=== PATIENT | male | born 1985 | race Caucasian/White ===

== ENCOUNTER 2018-09-27 15:47 | Emergency (ER) | payer BC, SELFPAY ==
[2018-09-27 15:48] VITALS: BP 155/88; PULSE 113; RESP 16; TEMP 38.3; O2SAT 95; BMI 30.8
--- NOTE | 2018-09-27 16:06 | RAD_ITS ---
STUDY: X-RAY CHEST REASON FOR EXAM: Male, 33 years old. Increasing mid back pain. History of vertebral trauma. Wheelchair bound diaphragmatic. TECHNIQUE: PA and lateral views of the chest. COMPARISON: None. FINDINGS: The lungs are clear and expanded. There is no demonstrated pleural abnormality. Normal size heart. Normal mediastinum and josefina. Normal visualized pulmonary arteries. Normal visualized aortic arch and descending thoracic aorta. There is evidence of surgical fusion of T12 and the upper lumbar spine. There is no visualized thoracic spine fracture. Normal visualized ribs, clavicles, and shoulders. There is no demonstrated abnormality of the visualized soft tissue structures of the upper abdomen. RAD/Chest PA and Lateral IMPRESSION: 1. No acute cardiopulmonary disease. 2. Thoracolumbar fusion. There is no evidence of acute thoracic spine fracture. Electronically Signed: Charles Espitia DO at 17:08 EDT Tel [phone], Service support ,
--- NOTE | 2018-09-27 16:11 | RAD_ITS ---
STUDY: X-RAY - LEFT ANKLE REASON FOR EXAM: Male, 33 years old. Infection. Wheelchair-bound diabetic. TECHNIQUE: 3 view(s) of the ankle. COMPARISON: None. FINDINGS: There is mild generalized osteopenia. Normal visualized distal tibia and fibula. Normal medial and lateral malleoli. Normal tibiotalar articulation and ankle mortise. Normal visualized talus and calcaneus. The visualized subtalar, talonavicular, calcaneocuboid and tarsal articulations are normal. The soft tissue structures are unremarkable. RAD/Ankle min 3 Views IMPRESSION: Mild osteopenia. There is no evidence of fracture, dislocation or osteomyelitis. Electronically Signed: Charles Espitia DO at 17:06 EDT Tel [phone], Service support ,
[2018-09-27] MEDS: Acetaminophen 500 MG Tablet 1000 MG PO (16:34)
--- NOTE | 2018-09-27 16:39 | ED.VIS.GEN ---
History of Present Illness Chief Complaint: Cellulitis Informant: Patient Onset: Days - 5 Context: Gradual Onset Timing: Continuous Quality: redness around wounds Location: bilat ankles Current Severity: Mild Maximum Severity: Mild Worsened by: nothing Relieved by: nothing Associated Symptoms: fever today Narrative: Patient is a poorly controlled diabetic and paraplegic due to a remote L1 burst fracture that he sustained due to an axial loading injury. He has fairly good sensation down to the knees. He was wearing some boots recently that probably rubbed on his malleoli of his ankles, causing some open wounds. He was seen at an urgent care and started on clindamycin 5 days ago for these wounds. He states they have become somewhat red around them, but not significantly worsening recently, although he reports that he has not been following the redness very well because it is hard for him to see on the lateral aspect of his left ankle. Today he started feeling malaise and developed fevers up to 100.4. He also states today his urine is foul-smelling. No dysuria. His low back hurts and that is new. It is off and on. No abdominal discomfort, nausea, vomiting. He does have a cough but no production or dyspnea. - Past Medical History (1) Diabetes Status: Chronic (2) Post-traumatic paraplegia Status: Chronic Past Medical History - Allergies and Home Meds Allergies/Adverse Reactions: Allergies venom-honey bee [bee venom (honey bee)] Allergy (Verified 09/27/18 16:08) Unknown Primary Care Physician: Charlie Pacheco MD [Primary Care Provider] - Surgical History: - - Back Smoking Status: Never smoker Drugs: None Review of Systems General: Reports: Chills, Fever, Malaise Eyes: Denies: Visual changes - bilaterally, Diplopia ENT: Denies: Rhinorrhea, Sore throat Cardiovascular: Denies: Chest pain, Palpitations Respiratory: Reports: Cough. Denies: Dyspnea, Sputum Gastrointestinal: Denies: Abdominal pain, Nausea, Vomiting, Diarrhea, Melena, Hematochezia Genitourinary: Reports: - - Foul-smelling urine. Denies: Dysuria, Hematuria, Frequency Musculoskeletal: Reports: Back pain, Swelling - Left foot/ankle. Denies: Extremity Pain Skin: Reports: Rash, Wounds Neurological: Reports: Weakness - Chronic unchanged lower extremities, Numbness - Chronic unchanged lower extremities. Denies: Headache Physical Exam Vital Signs/Narrative: Vital Signs Temp Pulse Resp BP Pulse Ox 09/27/18 15:48 100.9 F H 113 H 16 155/88 H 95 Inital Vital Signs reviewed: Yes General: Well nourished, Well developed, No Acute Distress Head: Normocephalic, Atraumatic Eyes: Perrl, EOMI ENT: Moist mucous membranes, No rhinorrhea Neck: Supple, Nontender, No lymphadenopathy Cardiovascular: Regular rate, Regular rhythm, No murmurs, Normal S1, Normal S2, Tachycardia Respiratory: No distress, CTA bilaterally, Chest nontender Abdomen: Soft, Nontender, Nondistended, Normal bowel sounds Back: Nontender, Normal Inspection, - - Well-healed surgical scar mid back. Negative for: CVA tenderness Extremities: Edema - Left foot and ankle, around inflamed wounds. Negative for: Calf Tenderness Skin: Normal color, No Trauma, - - Scabbed healing ulcerative wounds at both left malleoli with surrounding erythema and blanching. No lymphangitis. Nontender because patient is insensate in this area although he can feel pressure. No abscess. There is also a small healing more superficial ulcerative wound at the medial malleolus on the right with no surrounding erythema. Neurological: Alert, Oriented x3, Cranial nerves II-XII grossly intact, Normal Strength, Normal Sensation Psychological: Normal affect, Normal Mood Diagnostic/Tx/Re-eval Impressions Chest X-Ray 09/27/18 16:06 IMPRESSION: 1. No acute cardiopulmonary disease. 2. Thoracolumbar fusion. There is no evidence of acute thoracic spine fracture. Electronically Signed: Charles Espitia DO at 17:08 EDT Tel [phone], Service support , Ankle X-Ray 09/27/18 16:11 IMPRESSION: Mild osteopenia. There is no evidence of fracture, dislocation or osteomyelitis. Electronically Signed: Charles Espitia DO at 17:06 EDT Tel [phone], Service support , 09/27/18 16:06 Chest PA and Lateral [RAD] Stat 09/27/18 16:11 XRAY Ankle [Ankle min 3 Views] [RAD] Stat Laboratory Results 09/27/18 09/27/18 09/27/18 16:20 16:20 16:20 WBC 23.1 H RBC 5.34 Hgb 15.5 Hct 44.2 MCV 82.8 MCH 29.0 MCHC 35.1 RDW 13.6 RDW Differential 41.1 Plt Count 277 MPV 10.1 Immature Gran % (Auto) 0.200 Neut % (Auto) 82.0 H Lymph % (Auto) 9.2 L Rutherford % (Auto) 8.1 Eos % (Auto) 0.3 Baso % (Auto) 0.2 Absolute Neuts (auto) 18.9 H Absolute Lymphs (auto) 2.12 Total Counted Not Reportable Diff Path Review May foll Platelet Estimate ADEQUATE RBC Morphology NORM C+C PT 13.9 INR 1.1 APTT 32.7 Sodium 136 Potassium 4.2 Chloride 99 Carbon Dioxide 29.0 Anion Gap 8 BUN 7 Creatinine 0.63 L Estim Creat Clear Calc 172.20 Est GFR (MDRD) Af Amer 190 Est GFR (MDRD) Non-Af 157 BUN/Creatinine Ratio 11.2 Glucose 181 H Lactic Acid Calcium 9.0 Total Bilirubin 1.30 H AST 30 ALT 65 H Alkaline Phosphatase 89 Total Protein 8.0 Albumin 3.7 Globulin 4.3 H Albumin/Globulin Ratio 0.9 Urine Color Urine Clarity Urine pH Ur Specific [place] Urine Protein Urine Glucose (UA) Urine Ketones Urine Occult Blood Urine Nitrite Urine Bilirubin Urine Urobilinogen Ur Leukocyte Esterase Urine RBC Urine WBC Ur Squamous Epith Cells Urine Bacteria Urine Mucus 09/27/18 09/27/18 16:20 19:00 WBC RBC Hgb Hct MCV MCH MCHC RDW RDW Differential Plt Count MPV Immature Gran % (Auto) Neut % (Auto) Lymph % (Auto) Rutherford % (Auto) Eos % (Auto) Baso % (Auto) Absolute Neuts (auto) Absolute Lymphs (auto) Total Counted Diff Path Review Platelet Estimate RBC Morphology PT INR APTT Sodium Potassium Chloride Carbon Dioxide Anion Gap BUN Creatinine Estim Creat Clear Calc Est GFR (MDRD) Af Amer Est GFR (MDRD) Non-Af BUN/Creatinine Ratio Glucose Lactic Acid 1.5 Calcium Total Bilirubin AST ALT Alkaline Phosphatase Total Protein Albumin Globulin Albumin/Globulin Ratio Urine Color Yellow Urine Clarity Cloudy Urine pH 6.0 Ur Specific [place] 1.010 Urine Protein 30 H Urine Glucose (UA) Normal Urine Ketones Negative Urine Occult Blood 25 H Urine Nitrite Negative Urine Bilirubin Negative Urine Urobilinogen Normal Ur Leukocyte Esterase 500 H Urine RBC 0 SEEN Urine WBC >100 SEEN Ur Squamous Epith Cells 0 SEEN Urine Bacteria 0 SEEN Urine Mucus 1+ - Medical Decision Making Given his mild tachycardia and leukocytosis of 23, patient meets sepsis criteria. His urine shows infection, and given his symptoms that arose at the same time as the fever, I suspect the urine is the cause of his sepsis. His left lower extremity wounds appear to be healing, there is surrounding erythema and swelling just distal in his foot, this may or may not be infected. Difficult to tell since he has altered sensation in this area, but the wounds do appear to be healing. There is no abscess. X-rays show no evidence of osteomyelitis/bone involvement or subcutaneous emphysema to indicate necrotizing fasciitis. Furthermore, the wounds and redness look the same now as they did 4 hours ago during his initial evaluation. I offered admission, he does not want to stay and wants to go home. He self caths regularly because of his spinal injury and has had urine infections before. He was given a dose of IV Rocephin, his lactate is within normal limits, blood and urine cultures are sent. He will be placed on Bactrim in addition to the clindamycin that he is advised to continue and to return to the ER if worse. He is comfortable with that plan. We gave him nonstick Telfa pads in addition to other gauze padding so that the pressure is off of his wounds while wearing his boots. ED Disposition - Plan for ED Patient: Disposition: Home or Assisted Living Diagnosis: Sepsis due to urinary tract infection, Wound of left ankle Instructions: ED UTI Cystitis Male, ED Infec Skin Cellulitis Prescriptions: Sulfamethoxazole/Trimethoprim [Bactrim Ds Tablet] 1 ea PO BID #[id number] tab Referrals: Charlie Pacheco MD [Primary Care Provider] - 2 Days for wound check
[2018-09-27 16:43] VITALS: BP 132/83; PULSE 104; RESP 20; O2SAT 99
[2018-09-27 16:47] LABS: ALB/GLOB Ratio 0.9 RATIO (0.9-2.4); AST(SGOT) 30 U/L (15-37); Alanine Aminotransfer ALT/SGPT 65 U/L (16-61); Albumin, Serum 3.7 g/dL (3.2-5.0); Alkaline Phosphatase 89 U/L (45-117); Anion Gap 8 (5-15); BUN 7 mg/dL (7-18); BUN/Creat Ratio 11.2 RATIO (10-20); Chloride 99 mmol/L (98-107); Creatinine, Serum 0.63 mg/dL (0.70-1.30); EST Glomerular Filtration Rate 157 mL/min (>60); Est Glom Filt Rate - Afr Amer 190 mL/min (>60); Globulin 4.3 g/dL (2.2-4.2); Glucose 181 mg/dL (74-106); Potassium 4.2 mmol/L (3.5-5.1); Sodium Level 136 mmol/L (136-145)
[2018-09-27 16:56] LABS: Absolute Lymphocyte Count 2.12 X10^3/ul (0.83-4.51); Absolute Neutrophil Count 18.9 X10^3/uL (2.0-7.7); Basophil# 0.04 X10^3/uL; Basophil% 0.2 % (0-1); Differential Indicated SCAN CRITERIA MET; Eosinophil# 0.06 X10^3/uL; Eosinophils% 0.3 % (0-5); Hematocrit 44.2 % (40-54); Hemoglobin 15.5 g/dl (13.0-16.5); Lymphocyte # 2.12 X10^3/ul (4.0); Lymphocyte % 9.2 % (19-41); Mean Corp Hgb Conc 35.1 g/gl (32-36); Mean Corpuscular Volume 82.8 fL (80-94); Mean Platelet Vol. 10.1 fl (6.2-12.0); Monocyte# 1.88 X10^3/uL; Monocyte% 8.1 % (0-10); Neutrophil # 18.93 X10^3/uL (2.7-7.7); POSITIVE COUNT NO; POSITIVE DIFFERENTIAL YES; POSITIVE MORPHOLOGY NO; Platelet Count 277 K/mm3 (150-450); RBC Distribution Width CV 13.6 % (11.6-14.6); RBC Distribution Width SD 41.1 fl (35.1-43.9); Red Blood Count 5.34 M/mm3 (4.6-6.2); White Blood Count 23.1 K/mm3 (4.4-11.0)
[2018-09-27 17:00] LABS: Lactic Acid 1.5 mmol/L (0.4-2.0)
[2018-09-27 17:26] LABS: Platelet Estimate ADEQUATE (ADEQ); Red Cell Morphology NORM C+C NORMAL (NORM C&C)
[2018-09-27 17:33] LABS: International Normalized Ratio 1.1; Prothrombin Time (Protime)PT. 13.9 SECONDS (11.7-14.9)
[2018-09-27 17:34] LABS: Partial Thromboplast Time 32.7 Seconds (24.1-36.2)
[2018-09-27 19:08] LABS: Bacteria 0 SEEN /hpf (None Seen); Red Blood Cells-Urine 0 SEEN /hpf (0-5); Squamous Epithelial Cells - UA 0 SEEN /hpf (0-5)
[2018-09-27 19:11] LABS: Color, Urine Yellow (Yellow); Glucose, Dipstick Normal (Normal); Ketone-Dipstick Negative (Negative); Leukocyte Esterase-Dipstick 500 /ul (Negative); Nitrite-Dipstick Negative (Negative); Occult Blood-Urine 25 /ul (Negative); Protein-Dipstick 30 mg/dl (Negative); Urine Bilirubin Dipstick Negative (Negative); Urine Clarity Cloudy (Clear); Urine Urobilinogen Normal (Normal)
[2018-09-27 19:22] LABS: Mucous, Urine 1+ /hpf (<or=2+); White Blood Cells >100 SEEN /hpf (0-5)
[2018-09-27] MEDS: Ceftriaxone 1 GM/50 ML BAG IV (20:23)
[2018-09-27 20:24] VITALS: BP 123/85; PULSE 10; PULSE 106; RESP 18; TEMP 37.4; O2SAT 98
[2018-09-27 20:25] VITALS: TEMP 37.4
[2018-09-27 21:02] VITALS: BP 140/100; PULSE 102; RESP 106; RESP 20; TEMP 37.4; O2SAT 99
[2018-09-27 21:12] VITALS: BP 142/111; PULSE 107; RESP 22; O2SAT 97
[2018-09-28 15:39] LABS: Pathologist Review Reviewed
== END 2018-09-27 21:14 | disposition home or self-care (01) ==
PROVIDERS: Emergency Provider Emergency Medicine; Family Provider Family Medicine; PCP Family Medicine
DX: A41.9 Sepsis, unspecified organism (principal); N39.0 Urinary tract infection, site not specified; G82.20 Paraplegia, unspecified; S34.101S Unspecified injury to L1 level of lumbar spinal cord, sequela; X58.XXXS Exposure to other specified factors, sequela; E11.65 Type 2 diabetes mellitus with hyperglycemia; L97.319 Non-pressure chronic ulcer of right ankle with unspecified severity; Z79.899 Other long term (current) drug therapy
CPT/HCPCS: 71046; 73610; 80053; 81001; 83605; 85025; 85610; 85730; 87040; 87086; 87088; 87186; 96365; 99284; J7050; A4216

== ENCOUNTER → 2018-12-13 17:57 | Outpatient (CLI) | payer BC, SELFPAY ==
[2018-12-13 22:02] LABS: Chlamydia Trachomatis by PCR Negative (Negative); Neisserai gonorrhoeae by PCR Negative (Negative); Probe Check PASS; Sample Adequacy Control PASS; Specimen Processing Control PASS
== END ==
PROVIDERS: Family Provider Family Medicine; PCP Family Medicine; Referring Provider Family Medicine; Visit Provider Family Medicine
DX: N39.0 Urinary tract infection, site not specified (principal)
CPT/HCPCS: 87086; 87088; 87491; 87591

== ENCOUNTER → 2019-01-09 10:50 | Outpatient (CLI) | payer BC, SELFPAY | PROVIDERS: Family Provider Family Medicine; PCP Family Medicine; Referring Provider Family Medicine; Visit Provider Family Medicine | DX: R30.0 Dysuria (principal) | CPT/HCPCS: 87077; 87086; 87088; 87186 ==

== ENCOUNTER 2019-01-18 12:27 | Outpatient (RCR) | payer BC, SELFPAY | END 2019-01-22 23:59 | LOC: WC 12:27 | PROVIDERS: Family Provider Family Medicine; PCP Family Medicine; Visit Provider Nurse Practitioner Family | DX: Z09 Encounter for follow-up examination after completed treatment for conditions other than malignant neoplasm (principal) ==

== ENCOUNTER → 2019-02-27 15:48 | Outpatient (CLI) | payer BC, SELFPAY | LOC: MFPLAB 15:51 → LABSPEC 15:53 | PROVIDERS: Family Provider Family Medicine; PCP Family Medicine; Referring Provider Family Medicine; Visit Provider Family Medicine | DX: N39.0 Urinary tract infection, site not specified (principal) | CPT/HCPCS: 87086; 87088; 87186 ==

== ENCOUNTER → 2019-12-13 11:55 | Outpatient (CLI) | payer BC, SELFPAY ==
[2019-12-13 15:30] LABS: Absolute Lymphocyte Count 3.33 X10^3/uL (0.83-4.51); Absolute Neutrophil Count 6.1 X10^3/uL (2.0-7.7); Basophil# 0.06 X10^3/uL; Basophil% 0.6 % (0-1); Eosinophil# 0.15 X10^3/uL; Eosinophils% 1.4 % (0-5); Hematocrit 47.2 % (40-54); Hemoglobin 15.9 g/dL (13.0-16.5); Lymphocyte # 3.33 X10^3/ul (4.0); Lymphocyte % 32.1 % (19-41); Mean Corp Hgb Conc 33.7 g/dL (32-36); Mean Corpuscular Hgb 28.6 pg (27.0-32.0); Mean Corpuscular Volume 84.9 fL (80-94); Mean Platelet Vol. 10.4 fl (6.2-12.0); Monocyte# 0.69 X10^3/uL; Monocyte% 6.6 % (0-10); NRBC Flagged by Analyzer 0 % (0-5); Neutrophil # 6.05 X10^3/uL (2.7-7.7); Neutrophil % 58.3 % (47-70); Platelet Count 309 K/mm3 (150-450); RBC Distribution Width CV 12.7 % (11.6-14.6); RBC Distribution Width SD 39.3 fl (35.1-43.9); Red Blood Count 5.56 M/mm3 (4.6-6.2); White Blood Count 10.4 K/mm3 (4.4-11.0)
[2019-12-13 15:44] LABS: ALB/GLOB Ratio 0.9 RATIO (0.9-2.4); AST(SGOT) 31 U/L (15-37); Alanine Aminotransfer ALT/SGPT 75 U/L (16-61); Albumin, Serum 3.8 g/dL (3.2-5.0); Alkaline Phosphatase 75 U/L (45-117); Anion Gap 5 (5-15); BUN 9 mg/dL (7-18); BUN/Creat Ratio 18.4 RATIO (10-20); Calcium,Total 8.9 mg/dL (8.5-10.1); Chloride 105 mmol/L (98-107); Creatinine, Serum 0.49 mg/dL (0.70-1.30); EST Glomerular Filtration Rate 207 mL/min (>60); Est Glom Filt Rate - Afr Amer 251 mL/min (>60); Globulin 4.1 g/dL (2.2-4.2); Glucose 170 mg/dL (74-106); Potassium 4.1 mmol/L (3.5-5.1); Protein, Total 7.9 g/dL (6.4-8.2); Sodium Level 138 mmol/L (136-145)
== END ==
PROVIDERS: PCP Family Medicine; Referring Provider Family Medicine; Visit Provider Family Medicine
DX: E11.65 Type 2 diabetes mellitus with hyperglycemia (principal)
CPT/HCPCS: 36415; 80053; 85025

== ENCOUNTER → 2020-01-01 | Outpatient (CLI) | payer OTHER, SELFPAY | END | disposition home or self-care (01) | PROVIDERS: PCP Family Medicine; Referring Provider Family Medicine; Visit Provider Family Medicine | DX: N30.00 Acute cystitis without hematuria (principal) | CPT/HCPCS: 87077; 87086; 87088; 87186 ==

== ENCOUNTER → 2020-01-14 | Outpatient (CLI) | payer OTHER, SELFPAY | END | disposition home or self-care (01) | PROVIDERS: PCP Family Medicine; Referring Provider Family Medicine; Visit Provider Family Medicine | DX: R39.9 Unspecified symptoms and signs involving the genitourinary system (principal) | CPT/HCPCS: 87086; 87088 ==

== ENCOUNTER → 2020-04-22 14:33 | Outpatient (CLI) | payer OTHER, SELFPAY ==
[2020-04-08 13:16] VITALS: BMI 32.5
== END ==
PROVIDERS: PCP Family Medicine; Visit Provider Family Medicine
DX: T83.511D Infection and inflammatory reaction due to indwelling urethral catheter, subsequent encounter (principal)
CPT/HCPCS: 87086; 87088; 87186

== ENCOUNTER → 2020-08-11 13:42 | Outpatient (CLI) | payer OTHER, SELFPAY ==
[2020-04-08 13:16] VITALS: BMI 32.5
== END ==
PROVIDERS: PCP Family Medicine; Visit Provider Nurse Practitioner Family
DX: R35.0 Frequency of micturition (principal)
CPT/HCPCS: 87077; 87086; 87088; 87186

== ENCOUNTER 2021-06-19 09:49 | Outpatient (CLI) | payer OTHER, SELFPAY ==
[2021-06-19 12:12] LABS: Absolute Lymphocyte Count 1.98 X10^3/uL (0.83-4.51); Absolute Neutrophil Count 7.5 X10^3/uL (2.0-7.7); Basophil# 0.04 X10^3/uL; Basophil% 0.4 % (0-1); Eosinophil# 0.06 X10^3/uL; Eosinophils% 0.6 % (0-5); Hematocrit 46.4 % (40-54); Hemoglobin 15.8 g/dL (13.0-16.5); Lymphocyte # 1.98 X10^3/ul (0.83-4.51); Lymphocyte % 19.3 % (19-41); Mean Corp Hgb Conc 34.1 g/dL (32-36); Mean Corpuscular Hgb 29.2 pg (27.0-32.0); Mean Corpuscular Volume 85.6 fL (80-94); Mean Platelet Vol. 10.1 fl (6.2-12.0); Monocyte# 0.65 X10^3/uL; Monocyte% 6.3 % (0-10); NRBC Flagged by Analyzer 0 % (0-5); Neutrophil # 7.49 X10^3/uL (2.7-7.7); Neutrophil % 73.2 % (47-70); Platelet Count 358 K/mm3 (150-450); RBC Distribution Width CV 13.2 % (11.6-14.6); RBC Distribution Width SD 41.3 fl (35.1-43.9); Red Blood Count 5.42 M/mm3 (4.6-6.2); White Blood Count 10.2 K/mm3 (4.4-11.0)
[2021-06-19 12:24] LABS: AST(SGOT) 28 U/L (15-37); Alanine Aminotransfer ALT/SGPT 56 U/L (16-61); Albumin, Serum 3.7 g/dL (3.2-5.0); Alkaline Phosphatase 72 U/L (45-117); Anion Gap 6 (5-15); BUN 9 mg/dL (7-18); BUN/Creat Ratio 17.5 RATIO (10-20); Calcium,Total 9.2 mg/dL (8.5-10.1); Chloride 108 mmol/L (98-107); Cholesterol 151 mg/dL (200); Creatinine, Serum 0.51 mg/dL (0.70-1.30); EST Glomerular Filtration Rate 194 mL/min (>60); Est Glom Filt Rate - Afr Amer 235 mL/min (>60); Globulin 3.8 g/dL (2.2-4.2); Glucose 102 mg/dL (74-106); High Density Lipoprotein 29 mg/dL; Potassium 3.8 mmol/L (3.5-5.1); Protein, Total 7.5 g/dL (6.4-8.2); Sodium Level 140 mmol/L (136-145); Triglycerides 162 mg/dL; Very Low Density Lipoprotein 32 mg/dL (5-40)
[2021-06-19 12:49] LABS: Hemoglobin A1c 5.8 % (3.8-5.6)
== END 2021-06-19 23:59 | disposition home or self-care (01) ==
LOC: MFPLAB 09:54
PROVIDERS: PCP Family Medicine; Referring Provider Family Medicine; Visit Provider Family Medicine
DX: E11.65 Type 2 diabetes mellitus with hyperglycemia (principal); G82.20 Paraplegia, unspecified; I10 Essential (primary) hypertension
CPT/HCPCS: 36415; 80053; 80061; 83036; 85025

== ENCOUNTER 2021-07-31 17:26 | Outpatient (CLI) | payer OTHER, SELFPAY | END 2021-07-31 23:59 | disposition home or self-care (01) | PROVIDERS: PCP Family Medicine; Visit Provider Nurse Practitioner Family | DX: N39.0 Urinary tract infection, site not specified (principal) | CPT/HCPCS: 87077; 87086; 87088; 87186 ==

== ENCOUNTER → 2021-08-28 | Outpatient (CLI) | payer OTHER, SELFPAY | END | disposition home or self-care (01) | LOC: LABSPEC 10:55 | PROVIDERS: PCP Family Medicine; Referring Provider Family Medicine; Visit Provider Family Medicine | DX: N39.0 Urinary tract infection, site not specified (principal) | CPT/HCPCS: 87077; 87086; 87088; 87186 ==

== ENCOUNTER → 2021-10-15 | Outpatient (CLI) | payer OTHER, SELFPAY | END | disposition home or self-care (01) | LOC: LABSPEC 13:51 | PROVIDERS: PCP Family Medicine; Referring Provider Family Medicine; Visit Provider Family Medicine | DX: N23 Unspecified renal colic (principal) | CPT/HCPCS: 87086; 87088; 87186 ==

== ENCOUNTER → 2022-03-12 | Outpatient (CLI) | payer OTHER, SELFPAY ==
[2022-03-12 18:09] LABS: ALB/GLOB Ratio 0.9 RATIO (0.9-2.4); AST(SGOT) 19 U/L (15-37); Alanine Aminotransfer ALT/SGPT 41 U/L (16-61); Albumin, Serum 3.9 g/dL (3.2-5.0); Alkaline Phosphatase 78 U/L (45-117); Anion Gap 5 (5-15); BUN 11 mg/dL (7-18); BUN/Creat Ratio 19.5 RATIO (10-20); Calcium,Total 9.1 mg/dL (8.5-10.1); Chloride 105 mmol/L (98-107); Creatinine, Serum 0.56 mg/dL (0.70-1.30); EST Glomerular Filtration Rate 173 mL/min (>60); Est Glom Filt Rate - Afr Amer 210 mL/min (>60); Globulin 4.2 g/dL (2.2-4.2); Glucose 116 mg/dL (74-106); Protein, Total 8.1 g/dL (6.4-8.2); Sodium Level 139 mmol/L (136-145)
== END | disposition home or self-care (01) ==
PROVIDERS: PCP Family Medicine; Referring Provider Family Medicine; Visit Provider Family Medicine
DX: E11.65 Type 2 diabetes mellitus with hyperglycemia (principal)
CPT/HCPCS: 36415; 80053

== ENCOUNTER → 2022-07-20 | Outpatient (CLI) | payer OTHER, SELFPAY | END | disposition home or self-care (01) | LOC: LABSPEC 12:03 | PROVIDERS: PCP Family Medicine; Referring Provider Nurse Practitioner Family; Visit Provider Nurse Practitioner Family | DX: R35.0 Frequency of micturition (principal) | CPT/HCPCS: 87077; 87086; 87088; 87186 ==

== ENCOUNTER 2023-09-09 09:00 | Outpatient (RCR) | payer OTHER, SELFPAY ==
--- NOTE | 2023-07-19 12:46 | HP.OTEVAL ---
Patient's Visit Information Visit Information Visit Information: NADEEN HERRERA is a 37 year old M, referred to Occupational Therapy by Dr. Charlie Pacheco MD, with a diagnosis of L arm discomfort wheelchair. Date of Evaluation: 07/19/23 Occupational Therapist: Shima Foster Subjective Subjective: This male pt referred to [facility] at this time due to numbness and tingling of L arm. intermittent for approx 4-5 months. Pt is R hand dominant. numbness and tingling when pt bends arm more than 90 degrees as well as when arms are unsupported versus supported. 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 Pt is sitting at desk when working majority of work day. has not impacted sleep at this time. Pain LUE: Current Pain Intensity: 6 Objective Objective/Observation: Pt arrives in wheelchair no current numbness or tingling during session. L arm shoulder strength 25 pounds versus R arm shoulder strength non affected side 35 pounds. pt wheelchair arm rests positioned to allow for 90 degree angle of arm or more however pt does hold phone at elbow bent beyond 90 degrees position. no swelling at site noted on eval. pt with wfl AROM L and R side. ROM Shoulder: R wfl L wfl Elbow: R wfl L wfl Forearm: R wfl L wfl Wrist: R wfl L wfl CMC: R wfl L wfl MP: R wfl L wfl IP: R wfl L wfl Radial Abduction: R wfl L wfl Palmar Abduction: R wfl L wfl Opposition: wfl L and R MP: R wfl L wfl PIP: R wfl and L wfl DIP: R wfl and L wfl ROM Comments: BUE AROM WFL Strength Shoulder: R 35 L 25 Elbow: R 36 L 25 Weatherization Crew Leader: R 115 L 110 Lateral Pinch: R 10 L 10 Tripod Pinch: R 7 L 7 Strength Comments: impairment in L shoulder strength compare to none affected side Edema Elbow: none noted on eval Sensation Sensation Comments: numbness and tingling with elbow bent beyond 90 however not typically when at rest not consistent Quick DASH-Disab of Arm,Shoulder& Hand Quick DASH Score: 18.1800 Goals Goal:: Pt will improve L shoulder strength by 2-5 pounds by second visit in order to promote posture and performance in day to day activities Goal:: pt will report 0 instances of numbness and tingling throughout day by 2nd session Goal:: pt will demonstrate / verbalize 100% accuracy in proper sitting positioning of work station as well as of BUEs in order to decrease L arm tingling by second session Goal:: pt will demonstrate/ verbalize 100% accuracy in nerve gliding HEP by second session Goal:: pt will improve quick dash score by 4-5 points by second session in order to increase overall functional adn QOL Rehabilitation Rehabilitation Potential: Good Anticipated Interventions Anticipated Interventions: A/AAROM/PROM, Strengthening, Modalities, Joint Protection/Energy Conservation, Ergonomic Education, Education re Diagnosis and Home Program Visit Plan Frequency: 1 visit Duration: 1 visit General Plan: This 37 year old male with numbness/ tingling of L arm approx 2 inches above elbow and 2 inches below elbow that occurs mostly when arms are flexed beyond 90 degree position. Pt is demonstrating decreased strength of L shoulder. Skilled OT plan to provide training on ergonomics work station set up as well as wheelchair positioning and set up to decrease numbness and tingling of L arm that is intermittent throughout the day. TEXT: Thank you for the opportunity to evaluate your patient. For Medicare and Medicare HMO plans, please review the plan of care and approve it. It will need to be FAXED BACK to us at [phone] for Medicare purposes. Please let me know if there are questions or concerns regarding this plan of care. Physician Signature: Date:
--- NOTE | 2023-07-19 14:57 | HP.PTEVAL_ITS ---
Patient's Visit Information Visit Information Visit Information: NADEEN HERRERA is a 37 year old M referred to Physical Therapy by Dr. Charlie Pacheco MD with a diagnosis of LEFT ARM PARESTHESIA. Date of Evaluation: 07/19/23 Physical Therapist: Romario Rich PT, Cert MDT, OCS Visit Plan Frequency: 1X Q OTHER Duration: 6 Weeks Plan: PT INTERVENTIONS POSTURAL EX'S ,THORACIC MOBILITY ,STRENGTHENING THORACIC ,PATIENT EDUCATION ERGONOMICS ,AND CERVICAL ROM (EXTENSION ) Subjective Subjective: This 37 y/o male presents to physical therapy with left arm p aresthesia. Patient has had left arm paresthesia from mid arm to forearm `~ 5 months. Patient had no imaging or medication. Patient has of L1 burst fracture 2005 with s/p lumbar fusion causing paraplegia BL L1 . Patient has impaired sensation below knee. Patient is able to sleep well. Aggravating factors flexed forward slouched at working and/or computer. Alleviating factors arm OH seems to abo lished symptom . Coughing/sneezing-.No abnormal night pain. 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 Patient only has manual w/c is for mobility .Patient is I with All ADLS , ramp for entrance and walk in shower. 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 SOCAIL: single 2 children HOBBIES: fishing Objective Objective: POSTURE: slouched posture ,rounded shoulder NEURO: denies paresthesia/tingling in arm reflexes C5-6-7 1/3 ,paresthesia in lower legs PALPATION: unremarkable MOBILITY: w/c level manually ,non ambulatory only for transfers AROM: BUE WFL MMT: GROSSLY 5/6 CERVICAL ROM: flexion ,rotation ,lateral flexion ,extension ,retraction WFL THORACIC ROM: flexion ,rotation WFL ,extension min loss SITTING BALANCE: good- Special Tests C/S Radiculapathy - Left Upper limb tension test: Negative C/S Radiculapathy - Right Upper limb tension test: Negative C/S Radiculapathy - Left Spurlings: Negative C/S Radiculapathy - Right Spurlings: Negative C/S Radiculapathy - Left Cervical distraction: Negative C/S Radiculapathy - Right Cervical distraction: Negative C/S Radiculapathy - Left Relief test: Negative C/S Radiculapathy - Right Relief test: Negative Sharp Beto: Negative Vertebral Artery Test: Negative Alar Ligament Test: Negative Cervical Sitting: Protrusion - Mechanical Response: No effect Cervical Sitting: Protrusion - Symptoms During Testing: No effect Cervical Sitting: Protrusion - Symptoms After Testing: No effect Cervical Sitting: Retraction - Mechanical Response: No effect Cervical Sitting: Retraction - Symptoms During Testing: No effect Cervical Sitting: Retraction - Symptoms After Testing: No effect Cervical Sitting: Retraction-Extension - Mechanical Response: No effect Cerv Sitting: Retraction-Extension - Symptoms During Testing: No effect Cerv Sitting: Retraction-Extension - Symptoms After Testing: No effect Cervical Sitting: Sidebend Right - Mechanical Response: No effect Cervical Sitting: Sidebend Right - Symptoms During Testing: No effect Cervical Sitting: Sidebend Right - Symptoms After Testing: No effect Cervical Sitting: Sidebend Left - Mechanical Response: No effect Cervical Sitting: Sidebend Left - Symptoms During Testing: No effect Cervical Sitting: Sidebend Left - Symptoms After Testing: No effect Cervical Sitting: Rotation Right - Mechanical Response: No effect Cervical Sitting: Rotation Right - Symptoms During Testing: No effect Cervical Sitting: Rotation Right - Symptoms After Testing: No effect Cervical Sitting: Rotation Left - Mechanical Response: No effect Cervical Sitting: Rotation Left - Symptoms During Testing: No effect Cervical Sitting: Rotation Left - Symptoms After Testing: No effect Cervical Sitting: Flexion - Mechanical Response: No effect Cervical Sitting: Flexion - Symptoms During Testing: No effect Cervical Sitting: Flexion - Symptoms After Testing: No effect Thoracic Sitting: Flexion - Mechanical Response: No effect Thoracic Sitting: Flexion - Symptoms During Testing: No effect Thoracic Sitting: Flexion - Symptoms After Testing: No effect Thoracic Sitting: Extension - Mechanical Response: No effect Thoracic Sitting: Extension - Symptoms During Testing: No effect Thoracic Sitting: Extension - Symptoms After Testing: No effect Thoracic Sitting: Right rotation - Mechanical Response: No effect Thoracic Sitting: Right Rotation - Symptoms During Testing: No effect Thoracic Sitting: Right Rotation - Symptoms After Testing: No effect Thoracic Sitting: Left rotation - Mechanical Response: No effect Thoracic Sitting: Left Rotation - Symptoms During Testing: No effect Thoracic Sitting: Left Rotation - Symptoms After Testing: No effect L/S Slump test left side: Negative L/S Slump test right side: Negative Balance/Special Test Scores Oswestry Neck Score: 6 Goals Goal 1:: Patient to be I with HEP for posture strengthening Goal Time Frame: 4-6 Weeks Goal 2:: Patient to demonstrate 50% improvement with reduction of symptom to improve function at job demands Goal Time Frame: 4-6 Weeks Goal 3:: Patient to improve neck oswestry score by 5 points to improve QOL and function Goal Time Frame: 4-6 Weeks Goal 4:: Patient able to perform job demands without recurrent symptoms in arm Goal Time Frame: 4-6 Weeks Rehabilitation Potential Physical Therapy Diagnosis: Patient is paraplegia w/c level has developed left symptoms paresthesia in arm /elbow with pain seems to be worse with job demands and at home working on computer in slouched position symptoms where not reproducible with motion testing neck or thoracic thus patient will benefit from skilled PT for strengthening posture Rehabilitation Potential: Good Anticipated Interventions Patient/Client Instruction: Educate patient on: Condition and Plan of Care For the Purpose of:: To decrease pain, To increase ROM, To improve muscle performance and motor function, To increase tolerance to activity/condition/position, To improve performance and independence with ADL's, To improve ability of physical actions for home/community/work/leisure, To improve health of tissue, To decrease soft tissue restriction, To increase flexibility/ROM, To improve tolerance to ADL's and Other Other: job demands Therapeutic Exercise to Include: Strength training, Endurance training, Balance training, Postural training, Flexibilty training and Active ROM For the Purpose of:: To decrease pain, To increase ROM, To improve muscle performance and motor function, To improve ability to perform ADL's, To increase tolerance to activity/condition/position, To improve ability of physical actions for home/community/work/leisure, To improve health of tissue, To decrease soft tissue restriction and To increase flexibility/ROM Text: Thank you for the opportunity to evaluate your patient. For Medicare and Medicare HMO plans, please review the plan of care and approve it. It will need to be FAXED BACK to us at [phone] for Medicare purposes. For Medicare only, by signing this I certify the plan of care. Please let me know if there are questions or concerns regarding this plan of care. Physician Signature: Date:
--- NOTE | 2023-09-09 09:23 | HP.PTDCSUM_ITS ---
Discharge Summary D/C summary: It has been my pleasure to treat NADEEN HERRERA referred by Dr. Charlie Pacheco MD, with the diagnosis of LEFT ARM PARESTHESIA for a total of 5 visit(s). Discharge Date: 09/09/23 Please see the following information for a summary of their discharge status. Subjective Subjective: Doing well no pain arm is better pain is better , episode 1x every couple days Pain Neck: Pain Intensity (Out of 10): 0 R arm: Pain Intensity (Out of 10): 0 Overall Improvement % Improvement: 70 Objective Objective/Function: POSTURE: slouched posture ,rounded shoulder NEURO: denies paresthesia/tingling in arm reflexes C5-6-7 1/3 ,paresthesia in lo wer legs PALPATION: unremarkable MOBILITY: w/c level manually ,non ambulatory only for transfers AROM: BUE WFL MMT: GROSSLY 5/5 CERVICAL ROM: flexion ,rotation ,lateral flexion ,extension ,retraction WFL THORACIC ROM: flexion ,rotation WFL ,extension min loss SITTING BALANCE: good- Goals Goal 1:: Patient to be I with HEP for posture strengthening Goal Progress: Goal Met Goal 2:: Patient to demonstrate 50% improvement with reduction of symptom to improve function at job demands Goal 3:: Patient to improve neck oswestry score by 5 points to improve QOL and function Goal Progress: Goal Met Goal 4:: Patient able to perform job demands without recurrent symptoms in arm Goal Progress: Goal Met Plan Plan: D/C D/C Information Discharge Comments: HEP d/c sentence: If there are questions or concerns regarding this patient's physical therapy, please feel free to call me at [phone]. Thank you for the referral of this patient. Sincerely, Romario Rich, PT, Cert MDT, OCS Balance/Gait/Functional tests Balance/Special Test Scores Oswestry Neck Score: 1 Improvement % Improvement: 70
== END 2023-09-09 19:00 | disposition home or self-care (01) ==
LOC: PT 09:00
PROVIDERS: PCP Family Medicine; Referring Provider Family Medicine; Visit Provider Family Medicine
DX: R20.2 Paresthesia of skin (principal); Z99.3 Dependence on wheelchair
CPT/HCPCS: 97110; 97162; 97165; 97530

== ENCOUNTER → 2024-11-01 | Outpatient (CLI) | payer OTHER, SELFPAY ==
[2024-11-01 17:39] LABS: Hematocrit 44.9 % (40-54); Hemoglobin 15.4 g/dL (13.0-16.5); Immature Granulocytes Count 0.050 X10^3/uL (0.0-0.0); Mean Corp Hgb Conc 34.3 g/dL (32-36); Mean Corpuscular Volume 84.6 fL (80-94); Mean Platelet Vol. 10.2 fl (6.2-12.0); NRBC Flagged by Analyzer 0 % (0-5); Platelet Count 377 K/mm3 (150-450); RBC Distribution Width CV 13.4 % (11.6-14.6); RBC Distribution Width SD 41.3 fl (35.1-43.9); Red Blood Count 5.31 M/mm3 (4.6-6.2); White Blood Count 13.9 K/mm3 (4.4-11.0)
[2024-11-01 18:28] LABS: AST(SGOT) 20 U/L (<=37); Alanine Aminotransfer ALT/SGPT 22 U/L (<=46); Albumin, Serum 4.2 g/dL (3.5-5.0); Alkaline Phosphatase 70 U/L (40-129); Anion Gap 13 (5-15); BUN 8 mg/dL (4-19); BUN/Creat Ratio 14.1 RATIO (10-20); Calcium,Total 9.7 mg/dL (7.6-11.0); Carbon Dioxide 23.6 mmol/L (21.0-32.0); Chloride 102 mmol/L (98-108); Globulin 3.7 g/dL (2.2-4.2); Glucose 99 mg/dL (70-99); Potassium 4.4 mmol/L (3.3-5.1)
[2024-11-01 21:33] LABS: Creatinine, Urine (random) 74.90 mg/dL (39.00-259.00); Microalbumin,Random Urine < 12.0 mg/L (NO RANGE EST.)
== END | disposition home or self-care (01) ==
LOC: MFPLAB 15:19
PROVIDERS: PCP Family Medicine; Referring Provider Family Medicine; Visit Provider Family Medicine
DX: N39.0 Urinary tract infection, site not specified (principal); G82.20 Paraplegia, unspecified; E11.9 Type 2 diabetes mellitus without complications
CPT/HCPCS: 36415; 80053; 82043; 82570; 83036; 84443; 85025; 87077; 87086; 87088; 87186

== ENCOUNTER → 2025-01-11 | Outpatient (CLI) | payer OTHER, SELFPAY ==
[2025-01-11 12:44] LABS: Hematocrit 46.3 % (40-54); Hemoglobin 15.9 g/dL (13.0-16.5); Immature Granulocytes Count 0.030 X10^3/uL (0.0-0.0); Mean Corp Hgb Conc 34.3 g/dL (32-36); Mean Corpuscular Volume 84.3 fL (80-94); Mean Platelet Vol. 10.7 fl (6.2-12.0); NRBC Flagged by Analyzer 0 % (0-5); Platelet Count 297 K/mm3 (150-450); RBC Distribution Width CV 13.7 % (11.6-14.6); RBC Distribution Width SD 41.9 fl (35.1-43.9); Red Blood Count 5.49 M/mm3 (4.6-6.2); White Blood Count 10.2 K/mm3 (4.4-11.0)
[2025-01-11 13:04] LABS: AST(SGOT) 21 U/L (<=37); Alanine Aminotransfer ALT/SGPT 24 U/L (<=46); Albumin, Serum 4.5 g/dL (3.5-5.0); Alkaline Phosphatase 62 U/L (40-129); Anion Gap 13 (5-15); BUN 10 mg/dL (4-19); BUN/Creat Ratio 24.3 RATIO (10-20); Calcium,Total 9.5 mg/dL (7.6-11.0); Carbon Dioxide 22.8 mmol/L (21.0-32.0); Chloride 105 mmol/L (98-108); Globulin 3.1 g/dL (2.2-4.2); Glucose 88 mg/dL (70-99); Potassium 4.3 mmol/L (3.3-5.1)
== END | disposition home or self-care (01) ==
LOC: MFPLAB 09:44
PROVIDERS: PCP Family Medicine; Visit Provider Family Medicine
DX: E11.9 Type 2 diabetes mellitus without complications (principal)
CPT/HCPCS: 36415; 80053; 83036; 85025

== ENCOUNTER → 2025-03-15 | Outpatient (CLI) | payer OTHER, SELFPAY ==
[2025-03-15 12:18] LABS: Hematocrit 46.6 % (40-54); Hemoglobin 16.2 g/dL (13.0-16.5); Immature Granulocytes Count 0.030 X10^3/uL (0.0-0.0); Mean Corp Hgb Conc 34.8 g/dL (32-36); Mean Corpuscular Volume 83.7 fL (80-94); Mean Platelet Vol. 10.5 fl (6.2-12.0); NRBC Flagged by Analyzer 0 % (0-5); Platelet Count 273 K/mm3 (150-450); RBC Distribution Width CV 13.1 % (11.6-14.6); RBC Distribution Width SD 40.1 fl (35.1-43.9); Red Blood Count 5.57 M/mm3 (4.6-6.2); White Blood Count 8.7 K/mm3 (4.4-11.0)
[2025-03-15 15:56] LABS: AST(SGOT) 27 U/L (<=37); Alanine Aminotransfer ALT/SGPT 32 U/L (<=46); Albumin, Serum 4.4 g/dL (3.5-5.0); Alkaline Phosphatase 62 U/L (40-129); Anion Gap 12 (5-15); BUN 11 mg/dL (4-19); BUN/Creat Ratio 27.8 RATIO (10-20); CRP 8.42 mg/L (0.0-3.0); Calcium,Total 9.6 mg/dL (7.6-11.0); Carbon Dioxide 23.3 mmol/L (21.0-32.0); Chloride 104 mmol/L (98-108); Cholesterol 159 mg/dL (<=200); Globulin 3.1 g/dL (2.2-4.2); Glucose 107 mg/dL (70-99); Low Density Lipoprotein Calc. 105 mg/dL; Potassium 4.0 mmol/L (3.3-5.1); Triglycerides 110 mg/dL; Very Low Density Lipoprotein 22 mg/dL (5-40); cholesterol:hdl ratio screen 4.66
== END | disposition home or self-care (01) ==
LOC: MFPLAB 11:11
PROVIDERS: PCP Family Medicine; Visit Provider Family Medicine
DX: E11.69 Type 2 diabetes mellitus with other specified complication (principal); M86.9 Osteomyelitis, unspecified
CPT/HCPCS: 36415; 80053; 80061; 83036; 85025; 85652; 86140

== ENCOUNTER → 2025-04-19 | Outpatient (CLI) | payer OTHER, SELFPAY ==
--- OUTSIDE RECORDS SUMMARY | 2025-04-19 11:32 | XMS RPT_ITS | CCD ---
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 Guerra Primary Care Provider Junior LIMON, Dr. Guerra Attending Provider Dr. Javed Pacheco MD Referring Provider Dr. Javed Pacheco MD Primary Care Physician Dr. Javed Pacheco MD Attending Physician Javed Pacheco Attending Unavailable Pacheco, Javed Primary Care Unavailable Pacheco, Javed Referring Unavailable PachecoJaved Attending Unavailable Pacheco, Javed Primary Care Unavailable PACHECO, JAVED A Primary Care Unavailable BENDARAM, TATA ALYSON Attending Unavaila ble SELF Referring Unavailable PACHECO, JAVED A Primary Care Unavailable PACHECO, JAVED A Primary Care Unavailable PACHECO, JAVED A Primary Care Unavailable ARMANDO NAYAK Attending Unavailable PACHECO, JAVED A Primary Care Unavailable BENDARAM, TATA SHIELDS Attending Unavaila ble PACHECO, JAVED A Primary Care Unavailable MALINI ARMANDO Attending Unavailable PACHECO, JAVED A Primary Care Unavailable PACHECO, JAVED A Primary Care Unavailable CONKLESHAWN SELLERS Attending Unavaila ble GABI CARRION Attending Unavailable PACHECO, JAVED A Primary Care Unavailable CONKLE-DILSHAD BLANKENSHIPSSICA Referring Unavaila JAVED Trejo Primary Care Unavailable CHARMAINE FISHER Attending Unavailable PROVIDER, UNKNOWN Consulting Unavailable KANIKA MULLEN Admitting Unavailable GABI CARRION Consulting Unavailable LUCY HERNANDEZ Attending Unavailable JAVED PACHECO Primary Care Unavailable REYNALDO KLEIN Admitting Unavailable Allergies Allergy Classification Reported Allergen(s) Allergy Type Date of Onset Reaction(s) Facility (20 sources) Bees; Translations: [BEES] Propensity to adverse reactions 7 Swelling [facility] Work Phone: (7 sources) venom-honey bee Allergy to substance 0 Unknown [facility] (20 sources) dulaglutide; Translations: [DULAGLUTIDE] Drug Allergy 4 Other: See Comments, GI Upset [facility] (20 sources) semaglutide; Translations: [SEMAGLUTIDE] [facility]-h[facility] Drug allergy (disorder) 0 [facility] Repository Medications Current Medications Medication Drug Class(es) Dates Sig (Normalized) Sig (Original) amoxicillin 875 mg oral tablet (1 source) Penicillin-class Antibacterial Start: 11-14-2023 End: 11-21-2023 take 1 tablet by mouth twice daily amoxicillin (AMOXIL) 875 mg tablet Indications: Acute otitis externa of right ear, unspecified type , Right otitis media, unspecified otitis media type Take 1 tablet by mouth two times a day for 7 days. 14 tablet 0 11/14/2023 11/21/2023 Active Blood-Glucose Meter (ACCU-CHEK GUIDE ME GLUCOSE MTR) (20 sources) Start: 03-27-2024 Blood-Glucose Meter (ACCU-CHEK GUIDE ME GLUCOSE MTR) Indications: Type 2 diabetes mellitus with hyperglycemia, with long-term current use of insulin (HCC) 1 Each as needed. 1 Each 03/27/2024 Active Blood-Glucose Sensor (DEXCOM G7 SENSOR) jaime (20 sources) Start: 06-01-2024 Blood-Glucose Sensor (DEXCOM G7 SENSOR) jaime Indications: Diabetes mellitus type 2 (HCC) Apply 1 Each as directed every 10 days. 3 Each 2 06/01/2024 Active Start: 10-25-2023 End: 01-26-2024 Blood-Glucose Sensor (DEXCOM G7 SENSOR) jaime Indications: Diabetes mellitus type 2 (HCC) 1 Each every 10 days. 3 Each 2 10/25/2023 01/26/2024 Discontinued Start: 10-25-2023 Blood-Glucose Sensor (DEXCOM G7 SENSOR) jaime Indications: Diabetes mellitus type 2 (HCC) 1 Each every 10 days. 3 Each 2 10/25/2023 Active CATHETER 12 FR-16 (20 sources) Start: 08-12-2009 CATHETER 12 FR -16 Indications: Unspecified site of spinal cord injury without evidence of spinal bone injury , Paraplegia (HCC) Use as directed 1 box 1 year 08/12/2009 Active Start: 08-12-2009 CATHETER 12 FR -16 Indications: Unspecified site of spinal cord injury without evidence of spinal bone injury , Paraplegia (HCC) Use as directed 1 box 1 08/12/2009 Active Comment on above: Use as directed cephalexin 500 mg oral capsule (3 sources) Cephalosporin Antibacterial Start: End: take 1 capsule by mouth four times daily cephALEXin (KEFLEX) 500 mg capsule Indications: Bladder spasm , Urinary incontinence, unspecified type Take 1 capsule by mouth four times daily for 14 days. 56 capsule 12/18/2024 01/01/2025 Active Start: 06-06-2024 End: 06-06-2024 take 1 capsule by mouth twice daily cephALEXin (KEFLEX) 500 mg capsule Indications: UTI symptoms Take 1 capsule by mouth two times a day for 7 days. 14 capsule 06/06/2024 06/06/2024 Discontinued Start: 12-20-2023 End: 12-30-2023 take 1 capsule by mouth four times daily cephALEXin (KEFLEX) 500 mg capsule Indications: Urinary frequency , Urinary urgency Take 1 capsule by mouth four times daily for 10 days. 40 capsule 12/20/2023 12/30/2023 Active ciprofloxacin 3 mg/ml / dexamethasone 1 mg/ml otic suspension (1 source) Corticosteroid, Quinolone Antimicrobial Start: 11-14-2023 End: 11-21-2023 ciprofloxacin-dexAMETHasone (CIPRODEX) 0.3-0.1 % otic suspension Indications: Acute otitis externa of right ear, unspecified type , Right otitis media, unspecified otitis media type Use 4 Drops in the right ear two times a day for 7 days. 7.5 mL 0 11/14/2023 11/21/2023 Active clindamycin 150 mg oral capsule (7 sources) Lincosamide Antibacterial Start: 09-27-2018 take 2 capsules by mouth three times daily Start: 09-27-2018 take 300 mg by mouth three times daily Clindamycin Hcl Active 300 MG PO THREE TIMES A DAY September 27, 2018 12:00am 3 ml liraglutide 6 mg/ml pen injector (7 sources) GLP-1 Receptor Agonist Start: 04-08-2020 losartan potassium 100 mg oral tablet (20 sources) Angiotensin 2 Receptor Dariel Start: 10-01-2023 take 1 tablet by mouth once daily losartan (COZAAR) 100 mg tablet Take 100 mg by mouth once daily. 10/01/2023 Active Start: 09-27-2018 take 1 tablet by sarah th once daily End: 10-25-2023 losartan potassium (LOSARTAN ORAL) Take by mouth. 0 10/25/2023 Discontinued (Course of therapy completed) losartan potassi um (LOSARTAN ORAL) Take by mouth. 0 Active Comment on above: Take by mouth. 24 hr metFORMIN hydrochloride 500 mg extended release oral tablet (20 sources) Biguanide Start: 11-01-2024 take 1 tablet by mouth every twelve hours metFORMIN ER (GLUCOPHAGE XR) 500 mg 24 hr tablet Indications: Diabetes mellitus type 2 (HCC) Take 1 tablet by mouth every 12 hours. 120 tablet 4 11/01/2024 Active Start: 05-03-2024 End: 11-01-2024 take 2 tablets by mouth twice daily metFORMIN ER (GLUCOPHAGE XR) 500 mg 24 hr tablet Indications: Diabetes mellitus type 2 (HCC) TAKE 2 TABLETS BY MOUTH TWICE DAILY 120 tablet 4 07/18/2024 11/01/2024 Discontinued Start: 11-24-2023 End: 05-01-2024 metFORMIN ER (GLUCOPHAGE XR) 500 mg 24 hr tablet Indications: Diabetes mellitus type 2 (HCC) Take 2 tablets twice daily 120 tablet 2 01/28/2024 05/01/2024 Discontinued Start: 10-25-2023 End: 11-24-2023 metFORMIN ER (GLUCOPHAGE XR) 500 mg 24 hr tablet Indications: Diabetes mellitus type 2 (HCC) Start 500 mg twice a day, with food If tolerating after a week, 1000 mg and 500 mg, with food If tolerating after a week, full dose of 1000 mg twice a day ALWAYS WITH FOOD 180 tablet 0 10/25/2023 11/24/2023 Discontinued Start: 04-08-2020 End: 10-25-2023 take 1 tablet by mouth twice daily 24 hr oxybutynin chloride 15 mg extended release oral tablet (20 sources) Cholinergic Muscarinic Antagonist Start: 09-27-2018 take 1 tablet by mouth once daily End: 10-25-2023 OXYBUTYNIN CHLORIDE ORAL Chava e by mouth. 0 10/25/2023 Discontinued (Course of therapy completed) OXYBUTYNIN CHLOR ERIN ORAL Take by mouth. 0 Active Comment on above: Take by mouth. pioglitazone 30 mg oral tablet (7 sources) Peroxisome Proliferator Receptor alpha Agonist, Peroxisome Proliferator Receptor gamma Agonist, Thiazolidinedione Start: 04-08-2020 take 1 tablet by mouth once daily sulfamethoxazole 800 mg / trimethoprim 160 mg oral tablet (9 sources) Dihydrofolate Reductase Inhibitor Antibacterial, Sulfonamide Antimicrobial Start: 09-27-2018 End: 09-12-2024 Start: 09-27-2018 Sulfamethoxazo le-Trimethoprim Active 1 EACH PO TWICE A DAY September 27, 2018 12:00am tirzepatide (MOUNJARO) 5 mg/0.5 mL pen injector (4 sources) Start: 08-02-2024 tirzepatide (M OUNJARO) 5 mg/0.5 mL pen injector Indications: Type 2 diabetes (HCC) , Obesity, Class I, BMI 30.0-34.9 (see actual BMI) Inject 5 mg subcutaneously one time a week. 2 mL 08/02/2024 Active Start: 08-02-2024 End: 09-01-2024 tirzepatide (MOUNJARO) 5 mg/ 0.5 mL pen injector Indications: Type 2 diabetes (HCC) , Obesity, Class I, BMI 30.0-34.9 (see actual BMI) Inject 5 mg subcutaneously one time a week. 2 mL 08/02/2024 09/01/2024 Active tirzepatide (MOUNJARO) 7.5 mg/0.5 mL pen injector (11 sources) Start: 12-03-2024 tirzepatide (M OUNJARO) 7.5 mg/0.5 mL pen injector Indications: Type 2 diabetes (HCC) , Obesity, Class I, BMI 30.0-34.9 (see actual BMI) Inject 7.5 mg subcutaneously one time a week. 2 mL 12/03/2024 Active Start: 11-01-2024 End: 11-29-2024 tirzepatide (MOUNJARO) 7.5 m g/0.5 mL pen injector Indications: Type 2 diabetes (HCC) , Obesity, Class I, BMI 30.0-34.9 (see actual BMI) Inject 7.5 mg subcutaneously one time a week. 2 mL 11/01/2024 11/29/2024 Discontinued Start: 11-01-2024 tirzepatide (M OUNJARO) 7.5 mg/0.5 mL pen injector Indications: Type 2 diabetes (HCC) , Obesity, Class I, BMI 30.0-34.9 (see actual BMI) Inject 7.5 mg subcutaneously one time a week. 2 mL 11/01/2024 Active Start: 09-18-2024 End: 11-01-2024 tirzepatide (MOUNJARO) 7.5 m g/0.5 mL pen injector Indications: Type 2 diabetes (HCC) , Obesity, Class I, BMI 30.0-34.9 (see actual BMI) Inject 7.5 mg subcutaneously one time a week. 2 mL 09/18/2024 11/01/2024 Discontinued Start: 09-18-2024 tirzepatide (M OUNJARO) 7.5 mg/0.5 mL pen injector Indications: Type 2 diabetes (HCC) , Obesity, Class I, BMI 30.0-34.9 (see actual BMI) Inject 7.5 mg subcutaneously one time a week. 2 mL 09/18/2024 Active Start: 08-23-2024 tirzepatide (M OUNJARO) 7.5 mg/0.5 mL pen injector Indications: Type 2 diabetes (HCC) , Obesity, Class I, BMI 30.0-34.9 (see actual BMI) Inject 7.5 mg subcutaneously one time a week. Patient should start on August 23, 2024. 2 mL 08/23/2024 Active Completed/Discontinued Medications Medication Drug Class(es) Dates Sig (Normalized) Sig (Original) ciprofloxacin 500 mg oral tablet (7 sources) Quinolone Antimicrobial Start: 07-26-2024 End: 08-02-2024 take 1 tablet by mouth twice daily ciprofloxacin HCl (CIPRO) 500 mg tablet Indications: Acute cystitis with hematuria , Urinary frequency Take 1 tablet by mouth two times a day for 7 days. 14 tablet 07/26/2024 08/02/2024 Start: 06-06-2024 End: 06-13-2024 take 1 tablet by mouth twice daily ciprofloxacin HCl (CIPRO) 500 mg tablet Indications: UTI symptoms Take 1 tablet by mouth two times a day for 7 days. 14 tablet 06/06/2024 06/13/2024 Active Start: 03-28-2024 End: 04-04-2024 take 1 tablet by mouth twice daily ciprofloxacin HCl (CIPRO) 500 mg tablet Indications: Leukocytes in urine Take 1 tablet by mouth two times a day for 7 days. 14 tablet 03/28/2024 04/04/2024 Active Start: 01-05-2024 End: 01-12-2024 take 1 tablet by mouth twice daily ciprofloxacin HCl (CIPRO) 500 mg tablet Indications: Antibiotic treatment within past 2 months , Fever, unspecified fever cause , Urinary frequency Take 1 tablet by mouth two times a day for 7 days. 14 tablet 01/05/2024 01/12/2024 Active DEXCOM G7 SENSOR jaime (9 sources) Start: 01-26-2024 End: 06-01-2024 DEXCOM G7 SENSOR jaime Indica tions: Diabetes mellitus type 2 (HCC) change sensor EVERY TEN days 3 Each 2 01/26/2024 06/01/2024 Discontinued Start: 01-26-2024 DEXCOM G7 SENS OR jaime Indications: Diabetes mellitus type 2 (HCC) change sensor EVERY TEN days 3 Each 2 01/26/2024 Active 3 ml insulin glargine 100 unt/ml pen injector (20 sources) Insulin Analog Start: 07-29-2023 End: 11-01-2024 LANTUS SOLOSTAR U-100 INSULIN 100 unit/mL (3 mL) Inject 18 units subcutaneously every morning. 15 mL 06/07/2024 11/01/2024 Discontinued (Other) Start: 07-29-2023 BASAGLAR KWIKP EN U-100 INSULIN 100 unit/mL (3 mL) Inject 15 Units subcutaneously every morning. 07/29/2023 Active iopamidol (Isovue-370) 76 % injection 75 mL (2 sources) Start: 08-18-2023 End: 08-18-2023 iopamidol (Isovue-370) 76 % injection 75 mL nateglinide 120 mg oral tablet (20 sources) Glinide Start: 10-10-2023 End: 11-01-2024 take 5 tablets by mouth three times daily before mealtime nateglinide (STARLIX) 120 mg tablet Take 120 mg by mouth three times a day before meals. Has only taken ~5 doses since being prescribed; It's hard to remember to take before I eat. 10/10/2023 11/01/2024 Discontinued (Other) nitrofurantoin, macrocrystals 25 mg / nitrofurantoin, monohydrate 75 mg oral capsule (2 sources) Nitrofuran Antibacterial Start: 07-28-2024 End: 2024 take 1 capsule by mouth twice daily nitrofurantoin monohydrate and macrocrystal (MACROBID) 100 mg capsule Indications: E. coli UTI Take 1 capsule by mouth two times a day for 7 days. 14 capsule 07/28/2024 2024 ondansetron 4 mg disintegrating oral tablet (2 sources) Serotonin-3 Receptor Antagonist Start: 11-26-2013 End: 10-25-2023 take 1 tablet by mouth every six hours ondansetron orally disintegrating 4 mg disintegrating tablet Take 1 tablet by mouth every 6 hours. 8 tablet 0 11/26/2013 10/25/2023 Discontinued (Course of therapy completed) Comment on above: Take 1 tablet by sarah th every 6 hours. tirzepatide (MOUNJARO) 2.5 mg/0.5 mL pen injector (6 sources) Start: 07-09-2024 End: 08-02-2024 inject 2.5 mg by subcutaneous injection every week tirzepatide (MOUNJARO) 2.5 mg/0.5 mL pen injector Indications: Type 2 diabetes (HCC) Inject 2.5 mg subcutaneously one time a week. 2 mL 07/09/2024 08/02/2024 Discontinued Start: 07-09-2024 End: 08-08-2024 inject 2.5 mg by subcutaneous injection every week tirzepatide (MOUNJARO) 2.5 mg/0.5 mL pen injector Indications: Type 2 diabetes (HCC) Inject 2.5 mg subcutaneously one time a week. 2 mL 07/09/2024 08/08/2024 Active Problems Active Problems Problem Classification Problem Date Documented Da te Episodic/Chronic Complication of device; implant or graft (1 source) Unspecified complication of cardiac and vascular prosthetic device, implant and graft, initial encounter; Translations: [Complication associated with peripherally inserted central catheter (PICC), initial encounter] Onset: 03-06-2025 Episodic Diabetes mellitus with complications (4 sources) Hyperglycemia due to type 2 diabetes mellitus; Translations: [Type 2 diabetes mellitus with hyperglycemia] 02-26-2024 Chronic Diabetes mellitus without complication (20 sources) Type 2 diabetes mellitus without complication; Translations: [Type 2 diabetes mellitus without complications] Onset: 2021 Chronic Essential hypertension (20 sources) Malignant essential hypertension; Translations: [Essential (primary) hypertension] Onset: 2021 Chronic Fever of unknown origin (1 source) Fever; Translations: [Fever, unspecified] 01-05-2024 Episodic Genitourinary symptoms and ill-defined conditions (2 sources) Urinary incontinence; Translations: [Unspecified urinary incontinence] Onset: 12-18-2024 12-18-2024 Chronic Infective arthritis and osteomyelitis (except that caused by tuberculosis or sexually transmitted disease) (1 source) Osteomyelitis, unspecified; Translations: [Osteomyelitis, unspecified site, unspecified type ([facility])] Onset: 03-06-2025 Chronic Open wounds of extremities (7 sources) Disorder of ankle; Translations: [Unspecified open wound, left ankle, initial encounter] 09-28-2018 Episodic Other aftercare (1 source) Long-term current use of insulin; Translations: [intermission coordinator (current) use of insulin] 07-10-2024 Episodic Other aftercare (1 source) Long-term current use of oral hypoglycemic medication; Translations: [intermediate (current) use of oral hypoglycemic drugs] 07-10-2024 Episodic Other connective tissue disease (2 sources) Paraparesis; Translations: [Other symptoms and signs involving the musculoskeletal system] Onset: 2021 Episodic Other diseases of bladder and urethra (17 sources) Neurogenic bladder; Translations: [Neuromuscular dysfunction of bladder, unspecified] Onset: 02-21-2006 07-09-2024 Chronic Other diseases of bladder and urethra (1 source) Spasm of bladder; Translations: [Other specified disorders of bladder] 12-18-2024 Chronic Other diseases of bladder and urethra (1 source) Other specified disorders of bladder; Translations: [Bladder spasm] Onset: 12-18-2024 Chronic Other diseases of bladder and urethra (1 source) Neuromuscular dysfunction of bladder, unspecified; Translations: [Neurogenic bladder] Onset: 07-09-2024 Chronic Other ear and sense organ disorders (1 source) Acute otitis externa of right ear; Translations: [Unspecified acute noninfective otitis externa, right ear] 11-14-2023 Episodic Other gastrointestinal disorders (16 sources) Neurogenic bowel; Translations: [Neurogenic bowel, not elsewhere classified] Onset: 02-21-2006 07-09-2024 Chronic Other injuries and conditions due to external causes (5 sources) Paraplegia; Translations: [Injury, unspecified, sequela] 09-27-2018 Episodic Other nutritional; endocrine; and metabolic disorders (9 sources) Obesity; Translations: [Obesity, unspecified] 04-10-2020 Chronic Other nutritional; endocrine; and metabolic disorders (20 sources) Obese class I; Translations: [Obesity, Class I, BMI 30.0-34.9 (see actual BMI)] Onset: 07-09-2024 07-09-2024 Chronic Otitis media and related conditions (1 source) Otitis media of right ear; Translations: [Otitis media, unspecified, right ear] 11-14-2023 Episodic Pancreatic disorders (not diabetes) (5 sources) Acute pancreatitis; Translations: [Acute pancreatitis without necrosis or infection, unspecified] Onset: 08-18-2023 08-18-2023 Episodic Paralysis (20 sources) Paraplegia; Translations: [Paraplegia, unspecified] Onset: 07-26-2007 Chronic Residual codes; unclassified (1 source) History of drug therapy; Translations: [Personal history of other drug therapy] 01-05-2024 Episodic Residual codes; unclassified (1 source) Finding related to ability to manage personal health care; Translations: [Other specified health status] 07-26-2024 Episodic Septicemia (except in labor) (8 sources) Sepsis due to urinary tract infection; Translations: [Sepsis, unspecified organism] Onset: 01-28-2025 09-28-2018 Episodic Spinal cord injury (20 sources) Spinal cord injury without spinal bone injury; Translations: [Unspecified site of spinal cord injury without evidence of spinal bone injury] Onset: 07-26-2007 07-26-2007 Chronic Unclassified (2 sources) Obesity, Class I, BMI 30.0-34.9 (see actual BMI); Translations: [Obesity, Class I, BMI 30.0-34.9 (see actual BMI)] Onset: 07-09-2024 Unclassified (1 source) Wound Check Onset: 02-05-2025 Urinary tract infections (6 sources) Acute cystitis; Translations: [Acute cystitis with hematuria] Onset: 06-06-2024 07-26-2024 Episodic Past or Other Problems Problem Classification Problem Date Documented Date Episodic/Chronic Genitourinary symptoms and ill-defined conditions (12 sources) Increased frequency of urination; Translations: [Frequency of micturition] Onset: 09-05-2024 12-20-2023 Episodic Inflammatory conditions of male genital organs (20 sources) Orchitis and epididymitis; Translations: [Epididymo-orchitis] Onset: 10-11-2007 10-11-2007 Episodic Other connective tissue disease (20 sources) Other symptoms and signs involving the musculoskeletal system; Translations: [Other musculoskeletal symptoms referable to limbs] Onset: 2021 2021 Episodic Other injuries and conditions due to external causes (20 sources) History of spinal cord injury; Translations: [Personal history of other (healed) physical injury and trauma] Onset: 2021 Episodic Other nervous system disorders (20 sources) Abnormal gait; Translations: [Unspecified abnormalities of gait and mobility] Onset: 06-17-2006 06-17-2006 Episodic Other non-traumatic joint disorders (20 sources) Stiffness of right shoulder; Translations: [Stiffness of right shoulder, not elsewhere classified] Onset: 06-22-2017 Episodic Other non-traumatic joint disorders (1 source) Shoulder pain; Translations: [Pain in right shoulder] Onset: 06-22-2017 06-22-2017 Episodic Other non-traumatic joint disorders (20 sources) Pain in right shoulder; Translations: [Pain in joint, shoulder region] Onset: 06-22-2017 06-22-2017 Episodic Unclassified (4 sources) spinal fusion 11-22-2021 Results Test Name Value Interpretation Reference Range Facility CBC panel Auto (Bld)on 03-06 Erythrocyte distribution width (RBC) [Ratio] 13.3 % Normal 11.5-15.0 [facility] Comment on above: Order Comment: Speci men Type: BLOOD SPECIMENOrdering Facility: [facility] Address: [address] [place] [address] Performed By: #### 5 8410-2 ####[facility] LABORATORYCLIA [id number] [address] Hematocrit (Bld) [Volume fraction] 44.9 % Normal 39.0-51.0 [facility] Comment on above: Order Comment: Speci men Type: BLOOD SPECIMENOrdering Facility: [facility] Address: [address] [place] [address] Performed By: #### 5 8410-2 ####BLAKELY LABORATORYCLIA [id number] [address] Hemoglobin (Bld) [Mass/Vol] 15.5 g/dL Normal 13.0-17.0 [facility] Comment on above: Order Comment: Speci men Type: BLOOD SPECIMENOrdering Facility: [facility] Address: [address] [place] [address] Performed By: #### 5 8410-2 ####BLAKELY LABORATORYCLIA [id number] [address] MCH (RBC) [Entitic mass] 29.3 pg Normal 26.0-34.0 [facility] Comment on above: Order Comment: Speci men Type: BLOOD SPECIMENOrdering Facility: [facility] Address: [address] [place] [address] Performed By: #### 5 8410-2 ####BLAKELY LABORATORYCLIA [id number] [address] [place] MCHC (RBC) [Mass/Vol] 34.5 g/dL Normal 30.5-36.0 [facility] Comment on above: Order Comment: Speci men Type: BLOOD SPECIMENOrdering Facility: [facility] Address: [address] [place] [address] Performed By: #### 5 8410-2 ####BLAKELY LABORATORYCLIA [id number] [address] MCV (RBC) [Entitic vol] 84.9 fL Normal 80.0-100.0 [facility] Comment on above: Order Comment: Speci men Type: BLOOD SPECIMENOrdering Facility: [facility] Address: [address] [place] [address] Performed By: #### 5 8410-2 ####BLAKELY LABORATORYCLIA [id number] [address] Nucleated RBC (Bld) [#/Vol] 10*3/uL Normal <0.01 [facility] Comment on above: Order Comment: Speci men Type: BLOOD SPECIMENOrdering Facility: [facility] Address: [address] [place] [address] Performed By: #### 5 8410-2 ####BLAKELY LABORATORYCLIA [id number] [address] Platelet mean volume (Bld) [Entitic vol] 10.0 fL Normal 9.0-12.7 [facility] Comment on above: Order Comment: Speci men Type: BLOOD SPECIMENOrdering Facility: [facility] Address: [address] [place] [address] Performed By: #### 5 8410-2 ####BLAKELY LABORATORYCLIA [id number] [address] Platelets (Bld) [#/Vol] 266 10*3/uL Normal 150-400 [facility] Comment on above: Order Comment: Speci men Type: BLOOD SPECIMENOrdering Facility: [facility] Address: [address] [place] [address] Performed By: #### 5 8410-2 ####BLAKELY LABORATORYCLIA [id number] [address] [place] RBC (Bld) [#/Vol] 5.29 10*6/uL Normal 4.20-6.00 [facility] Comment on above: Order Comment: Speci men Type: BLOOD SPECIMENOrdering Facility: [facility] Address: [address] [place] [address] Performed By: #### 5 8410-2 ####[facility] VIEJO LABORATORYCLIA [id number] [address] WBC (Bld) [#/Vol] 10.23 10*3/uL Normal 3.70-11.00 [facility] Comment on above: Order Comment: Speci men Type: BLOOD SPECIMENOrdering Facility: [facility] Address: [address] [place] [address] Performed By: #### 5 8410-2 ####[facility] LABORATORYCLIA [id number] [address] CONSULTon 03-06-2025 CONSULT HNO ID: [id number] Author: GABI CARRION MD Service: Infectious Disease Author Type: Physician Type: Consults Filed: 03/06/2025 21:35 Note Text: INFECTIOUS DISEASE INITIAL CONSULT SERVICE DATE: 03/06/2025 SERVICE TIME: 9:32 AM REASON FOR CONSULT: PICC malfunction Subjective Patient is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 [place] [address] Performed By: #### 4 5066-8, 3094-0 #### [facility] CLIA [id number] [address] [place] [address] [place] Platelets (Bld) [#/Vol] 258 10*3/uL Normal 150-400 [facility] Comment on above: Order Comment: Speci men Type: BLOOD SPECIMEN Ordering Facility: [facility] Address: [address] [place] [address], [place] [address] Performed By: #### 4 5066-8, 3094-0 #### [facility] CLIA [id number] [address] [place] [address] [place] RBC (Bld) [#/Vol] 5.44 10*6/uL Normal 4.20-6.00 [facility] Comment on above: Order Comment: Speci men Type: BLOOD SPECIMEN Ordering Facility: [facility] Address: [address] [place] [address], [place] [address] Performed By: #### 4 5066-8, 3094-0 #### [facility] CLIA [id number] [address] [place] [address] [place] WBC (Bld) [#/Vol] 8.48 10*3/uL Normal 3.70-11.00 [facility] Comment on above: Order Comment: Rosario lawrence Type: BLOOD SPECIMEN [facility] Address: [address] [place] [address], [place] [address] Performed By: #### 4 5066-8, 3094-0 #### [facility] CLIA [id number] [address] [place] [address] [place] Creatinine and Glomerular fi ltration rate.predicted panel (S/P/Bld)on 03-04-2025 Creatinine [Mass/Vol] 0.36 mg/dL Low 0.73-1.22 [facility] Comment on above: Order Comment: Rosario lawrence Type: BLOOD SPECIMEN Ordering Facility: [facility] Address: [address] [place] [address], [place] [address] Performed By: #### 4 5066-8 #### [facility] CLIA [id number] [address] [place] [address] [place] eGFRcr SerPlBld CKD-EPI 2020 147 mL/min/1.73m??? Normal >=60 [facility] Comment on above: Order Comment: Rosario lawrence Type: BLOOD SPECIMEN Ordering Facility: [facility] Address: [address] [place] [address], [place] [address] Result Comment: Adele mated Glomerular Filtration Rate (eGFR) is calculated using the 2020 CKD-EPI creatinine equation. This equation utilizes serum creatinine, sex, and age as parameters. The creatinine assay has traceable calibration to isotope dilution-mass spectrometry. Refer to KDIGO guidelines for clinical interpretation. In patients with unstable renal function, e.g. those with acute kidney injury, the eGFR may not accurately reflect actual GFR. Performed By: #### 4 5066-8 #### [facility] CLIA [id number] [address] [place] [address] [place] Vancomycin random [Mass/Vol] on 03-04-2025 Vancomycin [Mass/Vol] 15.0 ug/mL Normal 10.0-20.0 [facility] Comment on above: Order Comment: Rosario lawrence Type: BLOOD SPECIMEN [facility] Address: [address] [id number] Result Comment: Refe rence ranges and high/low indicator flags are provided as general guidelines only. The treating physician must determine appropriate target levels/dosing based on the specific clinical situation. Performed By: #### 4 5066-8, 3094-0 #### [facility] CLIA [id number] [address] [place] [address] [facility] 102on 02-28-2025 102 HNO ID: [id number] Author: LATOYA DOYLE HDA Service: ? Author Type: ? Type: 102 Filed: 02/28/2025 11:04 Note Text: Code Status: Full Code Normal [facility] BUN SerPl-mCncon 02-25-2025 Urea nitrogen [Mass/Vol] 10 mg/dL Normal 9-24 [facility] Comment on above: Order Comment: Speci men Type: BLOOD SPECIMEN [facility] Address: [address] [place] [address] Performed By: #### 4 5066-8, 3094-0 #### [facility] CLIA [id number] [address] [place] [address] [facility] CBC W Auto Differential pane l (Bld)on 02-25-2025 Basophils (Bld) [#/Vol] 0.04 10*3/uL Normal <0.11 [facility] Comment on above: Order Comment: Speci men Type: BLOOD SPECIMEN [facility] Address: [address] [place] [address], [place] [address] Performed By: #### 4 5066-8, 3094-0 #### [facility] CLIA [id number] [address] [place] [address] [facility] Basophils/100 WBC (Bld) 0.5 % Normal A [facility] Comment on above: Order Comment: Speci men Type: BLOOD SPECIMEN [facility] Address: [address] [place] [address] Performed By: #### 4 5066-8, 3094-0 #### [facility] CLIA [id number] [address] [place] [address] [facility] [place] Differential cell count method Nom (Bld) Auto Normal [facility] Comment on above: Order Comment: Speci men Type: BLOOD SPECIMEN [facility] Address: [address] [place] [address], [place] [address] Performed By: #### 4 5066-8, 3094-0 #### [facility] CLIA [id number] [address] [place] [address] [place] Eosinophils (Bld) [#/Vol] 0.28 10*3/uL Normal <0.46 [facility] Comment on above: Order Comment: Speci men Type: BLOOD SPECIMEN Ordering Facility: [facility] Address: [address] [place] [address], [place] [address] Performed By: #### 4 5066-8, 3094-0 #### [facility] CLIA [id number] [address] [place] [address] [facility] Eosinophils/100 WBC (Bld) 3.4 % Normal [facility] Comment on above: Order Comment: Speci men Type: BLOOD SPECIMEN Ordering Facility: [facility] Address: [address] [place] [address], [place] [address] Performed By: #### 4 5066-8, 3094-0 #### [facility] CLIA [id number] [address] [place] [address] [place] Erythrocyte distribution width (RBC) [Ratio] 14.1 % Normal 11.5-15.0 [facility] Comment on above: Order Comment: Speci men Type: BLOOD SPECIMEN [facility] Address: [address] [place] [address], [place] [address] Performed By: #### 4 5066-8, 3094-0 #### [facility] CLIA [id number] [address] [place] [address] [facility] [place] Hematocrit (Bld) [Volume fraction] 44.6 % Normal 39.0-51.0 [facility] Comment on above: Order Comment: Speci men Type: BLOOD SPECIMEN [facility] Address: [address] [place] [address], [place] [address] Performed By: #### 4 5066-8, 3094-0 #### [facility] CLIA [id number] [address] [place] [address] [place] Hemoglobin (Bld) [Mass/Vol] 15.0 g/dL Normal 13.0-17.0 [facility] Comment on above: Order Comment: Speci men Type: BLOOD SPECIMEN [facility] Address: [address] [place] [address], [place] [address] Performed By: #### 4 5066-8, 3094-0 #### [facility] CLIA [id number] [address] [place] [address] [place] Immature granulocytes (Bld) [#/Vol] 10*3/uL Normal <0.10 [facility] Comment on above: Order Comment: Speci men Type: BLOOD SPECIMEN Ordering Facility: [facility] Address: [address] [place] [address] Performed By: #### 4 5066-8, 3094-0 #### [facility] CLIA [id number] [address] [place] [address] [place] Immature granulocytes/100 WBC (Bld) 0.2 % Normal [facility] Comment on above: Order Comment: Speci men Type: BLOOD SPECIMEN [facility] Address: [address] [place] [address], [place] [address] Performed By: #### 4 5066-8, 3094-0 #### [facility] CLIA [id number] [address] [place] [address] [place] Lymphocytes (Bld) [#/Vol] 2.11 10*3/uL Normal 1.00-4.00 [facility] Comment on above: Order Comment: Speci men Type: BLOOD SPECIMEN [facility] Address: [address] [place] [address], [place] [address] Performed By: #### 4 5066-8, 3094-0 #### [facility] CLIA [id number] [address] [place] [address] [place] [facility] Lymphocytes/100 WBC (Bld) 25.9 % Normal [facility] Comment on above: Order Comment: Speci men Type: BLOOD SPECIMEN [facility] Address: [address] [place] [address], [place] [address] Performed By: #### 4 5066-8, 3094-0 #### [facility] CLIA [id number] [address] [place] [address] [facility] MCH (RBC) [Entitic mass] 29.0 pg Normal 26.0-34.0 [facility] Comment on above: Order Comment: Speci men Type: BLOOD SPECIMEN [facility] Address: [address] [place] [address], [place] [address] Performed By: #### 4 5066-8, 3094-0 #### [facility] CLIA [id number] [address] [place] [address] [facility] MCHC (RBC) [Mass/Vol] 33.6 g/dL Normal 30.5-36.0 [facility] Comment on above: Order Comment: Speci men Type: BLOOD SPECIMEN Ordering Facility: [facility] Address: [address] [place] [address], [place] [address] Performed By: #### 4 5066-8, 3094-0 #### [facility] CLIA [id number] [address] [place] [address] [place] MCV (RBC) [Entitic vol] 86.3 fL Normal 80.0-100.0 [facility] Comment on above: Order Comment: Speci men Type: BLOOD SPECIMEN [facility] Address: [address] [place] [address], [place] [address] Performed By: #### 4 5066-8, 3094-0 #### [facility] CLIA [id number] [address] [place] [address] [facility] [place] Monocytes (Bld) [#/Vol] 0.65 10*3/uL Normal <0.87 [facility] Comment on above: Order Comment: Speci men Type: BLOOD SPECIMEN [facility] Address: [address] [place] [address], [facility] [address] Performed By: #### 4 5066-8, 3094-0 #### [facility] CLIA [id number] [address] [place] [address] [place] Monocytes/100 WBC (Bld) 8.0 % Normal A [facility] Comment on above: Order Comment: Speci men Type: BLOOD SPECIMEN [facility] Address: [address] [place] [address], [facility] [address] Performed By: #### 4 5066-8, 3094-0 #### [facility] CLIA [id number] [address] [place] [address] [place] Neutrophils (Bld) [#/Vol] 5.04 10*3/uL Normal 1.45-7.50 [facility] Comment on above: Order Comment: Speci men Type: BLOOD SPECIMEN [facility] Address: [address] [place] [address], [facility] [address] Performed By: #### 4 5066-8, 3094-0 #### [facility] CLIA [id number] [address] [place] [address] [place] Neutrophils/100 WBC (Bld) 62.0 % Normal [facility] Comment on above: Order Comment: Speci men Type: BLOOD SPECIMEN [facility] Address: [address] [place] [address], [facility] [address] Performed By: #### 4 5066-8, 3094-0 #### [facility] CLIA [id number] [address] [place] [address] [place] Nucleated RBC (Bld) [#/Vol] Normal [facility] Comment on above: Order Comment: Speci men Type: BLOOD SPECIMEN [facility] Address: [address] [place] [address], [facility] [place] [address] Performed By: #### 4 5066-8, 3094-0 #### [facility] CLIA [id number] [address] [place] [address] [place] Nucleated RBC/100 WBC (Bld) [Ratio] Normal [facility] Comment on above: Order Comment: Speci men Type: BLOOD SPECIMEN [facility] Address: [address] [place] [address], [place] [address] Performed By: #### 4 5066-8, 3094-0 #### [facility] CLIA [id number] [address] [place] [address] [place] Platelet mean volume (Bld) [Entitic vol] 10.1 fL Normal 9.0-12.7 [facility] Comment on above: Order Comment: Speci men Type: BLOOD SPECIMEN [facility] Address: [address] [place] [address], [place] [address] Performed By: #### 4 5066-8, 3094-0 #### [facility] CLIA [id number] [address] [place] [address] [place] Platelets (Bld) [#/Vol] 217 10*3/uL Normal 150-400 [facility] Comment on above: Order Comment: Speci men Type: BLOOD SPECIMEN [facility] Address: [address] [place] [address], [place] [address] Performed By: #### 4 5066-8, 3094-0 #### [facility] CLIA [id number] [address] [place] [address] [place] RBC (Bld) [#/Vol] 5.17 10*6/uL Normal 4.20-6.00 [facility] Comment on above: Order Comment: Speci men Type: BLOOD SPECIMEN [facility] Address: [address] [place] [address], [place] [address] Performed By: #### 4 5066-8, 3094-0 #### [facility] CLIA [id number] [address] [place] [address] [place] WBC (Bld) [#/Vol] 8.14 10*3/uL Normal 3.70-11.00 [facility] Comment on above: Order Comment: Rosario lawrence Type: BLOOD SPECIMEN Ordering Facility: [facility] Address: [address] [place] [address], [place] [address] Performed By: #### 4 5066-8, 3094-0 #### [facility] CLIA [id number] [address] [place] [address] [facility] Creatinine and Glomerular fi ltration rate.predicted panel (S/P/Bld)on 02-25-2025 Creatinine [Mass/Vol] 0.38 mg/dL Low 0.73-1.22 [facility] Comment on above: Order Comment: Rosario lawrence Type: BLOOD SPECIMEN Ordering Facility: [facility] Address: [address] [place] [address], [place] [address] Performed By: #### 4 5066-8, 3094-0 #### [facility] CLIA [id number] [address] [place] [address] [facility] eGFRcr SerPlBld CKD-EPI 2020 145 mL/min/1.73m??? Normal >=60 [facility] Comment on above: Order Comment: Rosario lawrence Type: BLOOD SPECIMEN [facility] Address: [address] [place] [address], [place] [address] Result Comment: Adele mated Glomerular Filtration Rate (eGFR) is calculated using the 2020 CKD-EPI creatinine equation. This equation utilizes serum creatinine, sex, and age as parameters. The creatinine assay has traceable calibration to isotope dilution-mass spectrometry. Refer to KDIGO guidelines for clinical interpretation. In patients with unstable renal function, e.g. those with acute kidney injury, the eGFR may not accurately reflect actual GFR. Performed By: #### 4 5066-8, 3094-0 #### [facility] CLIA [id number] [address] [place] [address] [place] Vancomycin random [Mass/Vol] on 02-25-2025 Vancomycin [Mass/Vol] 17.1 ug/mL Normal 10.0-20.0 [facility] Comment on above: Order Comment: Rosario lawrence Type: BLOOD SPECIMEN [facility] Address: [address] [place] [address], [place] [address] Result Comment: Refe rence ranges and high/low indicator flags are provided as general guidelines only. The treating physician must determine appropriate target levels/dosing based on the specific clinical situation. Performed By: #### 4 5066-8, 3094-0 #### [facility] CLIA [id number] [address] [place] [address] [place] [facility] CBC W Auto Differential pane l (Bld)on 02-18-2025 Basophils (Bld) [#/Vol] 0.04 10*3/uL Normal <0.11 [facility] Comment on above: Order Comment: Speci men Type: BLOOD SPECIMEN Ordering Facility: [facility] Address: [address] [place] [address], [place] [address] Performed By: #### 4 5066-8, 3094-0 #### [facility] CLIA [id number] [address] [place] [address] [place] Basophils/100 WBC (Bld) 0.5 % Normal A [facility] Comment on above: Order Comment: Speci men Type: BLOOD SPECIMEN Ordering Facility: [facility] Address: [address] [place] [address], [place] [address] Performed By: #### 4 5066-8, 3094-0 #### [facility] CLIA [id number] [address] [place] [address] [facility] Differential cell count method Nom (Bld) Auto Normal [facility] Comment on above: Order Comment: Speci men Type: BLOOD SPECIMEN Ordering Facility: [facility] Address: [address] [place] [address], [place] [address] Performed By: #### 4 5066-8, 3094-0 #### [facility] CLIA [id number] [address] [place] [address] [place] Eosinophils (Bld) [#/Vol] 0.20 10*3/uL Normal <0.46 [facility] Comment on above: Order Comment: Speci men Type: BLOOD SPECIMEN Ordering Facility: [facility] Address: [address] [place] [address], [place] [address] Performed By: #### 4 5066-8, 3094-0 #### [facility] CLIA [id number] [address] [place] [address] [place] Eosinophils/100 WBC (Bld) 2.5 % Normal [facility] Comment on above: Order Comment: Speci men Type: BLOOD SPECIMEN [facility] Address: [address] [place] [address], [place] [address] Performed By: #### 4 5066-8, 3094-0 #### [facility] CLIA [id number] [address] [place] [address] [place] Erythrocyte distribution width (RBC) [Ratio] 13.7 % Normal 11.5-15.0 [facility] Comment on above: Order Comment: Speci men Type: BLOOD SPECIMEN [facility] Address: [address] [place] [address], [place] [address] Performed By: #### 4 5066-8, 3094-0 #### [facility] CLIA [id number] [address] [place] [address] [facility] [place] Hematocrit (Bld) [Volume fraction] 43.3 % Normal 39.0-51.0 [facility] Comment on above: Order Comment: Speci men Type: BLOOD SPECIMEN [facility] Address: [address] [place] [address], [place] [address] Performed By: #### 4 5066-8, 3094-0 #### [facility] CLIA [id number] [address] [place] [address] [place] Hemoglobin (Bld) [Mass/Vol] 14.4 g/dL Normal 13.0-17.0 [facility] Comment on above: Order Comment: Speci men Type: BLOOD SPECIMEN [facility] Address: [address] [place] [address], [place] [address] Performed By: #### 4 5066-8, 3094-0 #### [facility] CLIA [id number] [address] [place] [address] [place] Immature granulocytes (Bld) [#/Vol] 10*3/uL Normal <0.10 [facility] Comment on above: Order Comment: Speci men Type: BLOOD SPECIMEN [facility] Facility[facility] Address: [address] [place] [address], [place] [address] Performed By: #### 4 5066-8, 3094-0 #### [facility] CLIA [id number] [address] [place] [address] [place] Immature granulocytes/100 WBC (Bld) 0.1 % Normal [facility] Comment on above: Order Comment: Speci men Type: BLOOD SPECIMEN Ordering Facility: [facility] Address: [address] [place] [address], [place] [address] Performed By: #### 4 5066-8, 3094-0 #### [facility] CLIA [id number] [address] [place] [address] [place] Lymphocytes (Bld) [#/Vol] 1.71 10*3/uL Normal 1.00-4.00 [facility] Comment on above: Order Comment: Speci men Type: BLOOD SPECIMEN Ordering Facility: [facility] Address: [address] [place] [address], [place] [address] Performed By: #### 4 5066-8, 3094-0 #### [facility] CLIA [id number] [address] [place] [address] [place] [facility] Lymphocytes/100 WBC (Bld) 21.7 % Normal [facility] Comment on above: Order Comment: Speci men Type: BLOOD SPECIMEN [facility] Facility[facility] Address: [address] [place] [address], [place] [address] Performed By: #### 4 5066-8, 3094-0 #### [facility] CLIA [id number] [address] [place] [address] [place] MCH (RBC) [Entitic mass] 28.7 pg Normal 26.0-34.0 [facility] Comment on above: Order Comment: Speci men Type: BLOOD SPECIMEN [facility]ing Facility[facility] Address: [address] [place] [address], [place] [id number] Performed By: #### 4 5066-8, 3094-0 #### [facility] CLIA [id number] [address] [place] [address] [place] MCHC (RBC) [Mass/Vol] 33.3 g/dL Normal 30.5-36.0 [facility] Comment on above: Order Comment: Speci men Type: BLOOD SPECIMEN [facility]ing Facility[facility] Address: [address] [place] [address], [place] [address] Performed By: #### 4 5066-8, 3094-0 #### [facility] CLIA [id number] [address] [place] [address] [facility] [place] MCV (RBC) [Entitic vol] 86.4 fL Normal 80.0-100.0 [facility] Comment on above: Order Comment: Speci men Type: BLOOD SPECIMEN Ordering Facility: [facility] Address: [address] [place] [address], [place] [address] Performed By: #### 4 5066-8, 3094-0 #### [facility] CLIA [id number] [address] [place] [address] [facility] Monocytes (Bld) [#/Vol] 0.66 10*3/uL Normal <0.87 [facility] Comment on above: Order Comment: Speci men Type: BLOOD SPECIMEN [facility] Address: [address] [place] [address], [place] [address] Performed By: #### 4 5066-8, 3094-0 #### [facility] CLIA [id number] [address] [place] [address] [facility] Monocytes/100 WBC (Bld) 8.4 % Normal A [facility] Comment on above: Order Comment: Speci men Type: BLOOD SPECIMEN [facility]ing Facility[facility] Address: [address] [place] [address], [place] [address] Performed By: #### 4 5066-8, 3094-0 #### [facility] CLIA [id number] [address] [place] [address] [place] Neutrophils (Bld) [#/Vol] 5.27 10*3/uL Normal 1.45-7.50 [facility] Comment on above: Order Comment: Speci men Type: BLOOD SPECIMEN [facility]ing Facility[facility] Address: [address] [place] [address], [place] [address] Performed By: #### 4 5066-8, 3094-0 #### [facility] CLIA [id number] [address] [place] [address] [place] Neutrophils/100 WBC (Bld) 66.8 % Normal [facility] Comment on above: Order Comment: Speci men Type: BLOOD SPECIMEN Ordering Facility: [facility] Address: [address] [place] [address], [place] [address] Performed By: #### 4 5066-8, 3094-0 #### [facility] CLIA [id number] [address] [place] [address] [place] Nucleated RBC (Bld) [#/Vol] Normal [facility] Comment on above: Order Comment: Speci men Type: BLOOD SPECIMEN Ordering Facility: [facility] Address: [address] [place] [address], [place] [address] Performed By: #### 4 5066-8, 3094-0 #### [facility] CLIA [id number] [address] [place] [address] [place] Nucleated RBC/100 WBC (Bld) [Ratio] Normal [facility] Comment on above: Order Comment: Speci men Type: BLOOD SPECIMEN [facility] Address: [address] [place] [address], [place] [address] Performed By: #### 4 5066-8, 3094-0 #### [facility] CLIA [id number] [address] [place] [address] [place] Platelet mean volume (Bld) [Entitic vol] 10.4 fL Normal 9.0-12.7 [facility] Comment on above: Order Comment: Speci men Type: BLOOD SPECIMEN [facility] Facility[facility] Address: [address] [place] [address], [place] [address] Performed By: #### 4 5066-8, 3094-0 #### [facility] CLIA [id number] [address] [place] [address] [facility] Platelets (Bld) [#/Vol] 255 10*3/uL Normal 150-400 [facility] Comment on above: Order Comment: Speci men Type: BLOOD SPECIMEN [facility] Facility[facility] Address: [address] [place] [address] Performed By: #### 4 5066-8, 3094-0 #### [facility] CLIA [id number] [address] [place] [address] [facility] RBC (Bld) [#/Vol] 5.01 10*6/uL Normal 4.20-6.00 [facility] Comment on above: Order Comment: Speci men Type: BLOOD SPECIMEN Ordering Facility: [facility] Address: [address] [place] [address] Performed By: #### 4 5066-8, 3094-0 #### [facility] CLIA [id number] [address] [place] [address] [facility] WBC (Bld) [#/Vol] 7.89 10*3/uL Normal 3.70-11.00 [facility] Comment on above: Order Comment: Speci men Type: BLOOD SPECIMEN Ordering Facility: [facility] Address: [address] [place] [address] Performed By: #### 4 5066-8, 3094-0 #### [facility] CLIA [id number] [address] [place] [address] [facility] Creatinine and Glomerular fi ltration rate.predicted panel (S/P/Bld)on 02-18-2025 Creatinine [Mass/Vol] 0.40 mg/dL Low 0.73-1.22 [facility] Comment on above: Order Comment: Speci men Type: BLOOD SPECIMEN [facility] Address: [address] [place] [address] Performed By: #### 4 5066-8 #### [facility] CLIA [id number] [address] [place] [address] [place] eGFRcr SerPlBld CKD-EPI 2020 142 mL/min/1.73m??? Normal >=60 [facility] Comment on above: Order Comment: Rosario lawrence Type: BLOOD SPECIMEN [facility] Facility[facility] Address: [address] [place] [address], [place] [address] Result Comment: Adele mated Glomerular Filtration Rate (eGFR) is calculated using the 2020 CKD-EPI creatinine equation. This equation utilizes serum creatinine, sex, and age as parameters. The creatinine assay has traceable calibration to isotope dilution-mass spectrometry. Refer to KDIGO guidelines for clinical interpretation. In patients with unstable renal function, e.g. those with acute kidney injury, the eGFR may not accurately reflect actual GFR. Performed By: #### 4 5066-8 #### [facility] CLIA [id number] [address] [place] [id number] [facility] Vancomycin random [Mass/Vol] on 02-18-2025 Vancomycin [Mass/Vol] 8.5 ug/mL Low 10.0-20.0 [facility] Comment on above: Order Comment: Rosario lawrence Type: BLOOD SPECIMEN Ordering Facility: [facility] Address: [address] [place] [address], [place] [address] Result Comment: Refe rence ranges and high/low indicator flags are provided as general guidelines only. The treating physician must determine appropriate target levels/dosing based on the specific clinical situation. Performed By: #### 4 5066-8, 3094-0 #### [facility] CLIA [id number] [address] [place] [address] [facility] CBC W Auto Differential pane l (Bld)on 02-11-2025 Basophils (Bld) [#/Vol] 0.05 10*3/uL Normal <0.11 [facility] Comment on above: Order Comment: Rosario lawrence Type: BLOOD SPECIMEN Ordering Facility: [facility] Address: [address] [place] [address], [place] [address] Performed By: #### 4 5066-8, 3094-0 #### [facility] CLIA [id number] [address] [place] [address] [place] Basophils/100 WBC (Bld) 0.6 % Normal A [facility] Comment on above: Order Comment: Speci men Type: BLOOD SPECIMEN [facility] Address: [address] [place] [address], [place] [address] Performed By: #### 4 5066-8, 3094-0 #### [facility] CLIA [id number] [address] [place] [address] [facility] Differential cell count method Nom (Bld) Auto Normal [facility] Comment on above: Order Comment: Speci men Type: BLOOD SPECIMEN [facility] Address: [address] [place] [address], [place] [address] Performed By: #### 4 5066-8, 3094-0 #### [facility] CLIA [id number] [address] [place] [address] [place] Eosinophils (Bld) [#/Vol] 0.20 10*3/uL Normal <0.46 [facility] Comment on above: Order Comment: Speci men Type: BLOOD SPECIMEN [facility] Address: [address] [place] [address], [place] [address] Performed By: #### 4 5066-8, 3094-0 #### [facility] CLIA [id number] [address] [place] [address] [facility] Eosinophils/100 WBC (Bld) 2.2 % Normal [facility] Comment on above: Order Comment: Speci men Type: BLOOD SPECIMEN [facility] Address: [address] [place] [address], [place] [address] Performed By: #### 4 5066-8, 3094-0 #### [facility] CLIA [id number] [address] [place] [address] [place] Erythrocyte distribution width (RBC) [Ratio] 13.6 % Normal 11.5-15.0 [facility] Comment on above: Order Comment: Speci men Type: BLOOD SPECIMEN [facility] Address: [address] [place] [address], [place] [address] Performed By: #### 4 5066-8, 3094-0 #### [facility] CLIA [id number] [address] [place] [address] [facility] [place] Hematocrit (Bld) [Volume fraction] 44.3 % Normal 39.0-51.0 [facility] Comment on above: Order Comment: Speci men Type: BLOOD SPECIMEN [facility] Address: [address] [place] [address], [place] [id number] Performed By: #### 4 5066-8, 3094-0 #### [facility] CLIA [id number] [address] [place] [address] [place] Hemoglobin (Bld) [Mass/Vol] 15.0 g/dL Normal 13.0-17.0 [facility] Comment on above: Order Comment: Speci men Type: BLOOD SPECIMEN Ordering Facility: [facility] Address: [address] [place] [address], [place] [address] Performed By: #### 4 5066-8, 3094-0 #### [facility] CLIA [id number] [address] [place], [place] [address] [place] [address] [place] Immature granulocytes (Bld) [#/Vol] 10*3/uL Normal <0.10 [facility] Comment on above: Order Comment: Speci men Type: BLOOD SPECIMEN [facility] Address: [address] [place] [address], [place] [address] Performed By: #### 4 5066-8, 3094-0 #### [facility] CLIA [id number] [address] [place] [address] [facility] [place] Immature granulocytes/100 WBC (Bld) 0.1 % Normal [facility] Comment on above: Order Comment: Speci men Type: BLOOD SPECIMEN [facility] Address: [address] [place] [address], [place] [address] Performed By: #### 4 5066-8, 3094-0 #### [facility] CLIA [id number] [address] [place] [address] [place] Lymphocytes (Bld) [#/Vol] 2.20 10*3/uL Normal 1.00-4.00 [facility] Comment on above: Order Comment: Speci men Type: BLOOD SPECIMEN Ordering Facility: [facility] Address: [address] [place] [address], [place] [address] Performed By: #### 4 5066-8, 3094-0 #### [facility] CLIA [id number] [address] [place] [address] [place] Lymphocytes/100 WBC (Bld) 24.5 % Normal [facility] Comment on above: Order Comment: Speci men Type: BLOOD SPECIMEN Ordering Facility: [facility] Address: [address] [place] [address], [place] [address] Performed By: #### 4 5066-8, 3094-0 #### [facility] CLIA [id number] [address] [place] [address] [place] MCH (RBC) [Entitic mass] 28.8 pg Normal 26.0-34.0 [facility] Comment on above: Order Comment: Speci men Type: BLOOD SPECIMEN Ordering Facility: [facility] Address: [address] [place] [address], [place] [address] Performed By: #### 4 5066-8, 3094-0 #### [facility] CLIA [id number] [address] [place] [address] [place] MCHC (RBC) [Mass/Vol] 33.9 g/dL Normal 30.5-36.0 [facility] Comment on above: Order Comment: Speci men Type: BLOOD SPECIMEN Ordering Facility: [facility] Address: [address] [place] [address], [place] [address] Performed By: #### 4 5066-8, 3094-0 #### [facility] CLIA [id number] [address] [place] [address] [place] MCV (RBC) [Entitic vol] 85.2 fL Normal 80.0-100.0 [facility] Comment on above: Order Comment: Speci men Type: BLOOD SPECIMEN [facility] Address: [address] [place] [address], [place] [address] Performed By: #### 4 5066-8, 3094-0 #### [facility] CLIA [id number] [address] [place] [address] [place] Monocytes (Bld) [#/Vol] 0.59 10*3/uL Normal <0.87 [facility] Comment on above: Order Comment: Speci men Type: BLOOD SPECIMEN [facility] Address: [address] [place] [address], [place] [address] Performed By: #### 4 5066-8, 3094-0 #### [facility] CLIA [id number] [address] [place] [address] [place] Monocytes/100 WBC (Bld) 6.6 % Normal A [facility] Comment on above: Order Comment: Speci men Type: BLOOD SPECIMEN [facility] Address: [address] [place] [address], [place] [address] Performed By: #### 4 5066-8, 3094-0 #### [facility] CLIA [id number] [address] [place] [address] [place] Neutrophils (Bld) [#/Vol] 5.94 10*3/uL Normal 1.45-7.50 [facility] Comment on above: Order Comment: Speci men Type: BLOOD SPECIMEN [facility] Address: [address] [place] [address], [place] [address] Performed By: #### 4 5066-8, 3094-0 #### [facility] CLIA [id number] [address] [place] [address] [place] Neutrophils/100 WBC (Bld) 66.0 % Normal [facility] Comment on above: Order Comment: Speci men Type: BLOOD SPECIMEN [facility] Address: [address] [place] [address], [place] [address] Performed By: #### 4 5066-8, 3094-0 #### [facility] CLIA [id number] [address] [place] [address] [place] Nucleated RBC (Bld) [#/Vol] Normal [facility] Comment on above: Order Comment: Speci men Type: BLOOD SPECIMEN [facility] Address: [address] [place] [address], [place] [address] Performed By: #### 4 5066-8, 3094-0 #### [facility] CLIA [id number] [address] [place] [address] [place] Nucleated RBC/100 WBC (Bld) [Ratio] Normal [facility] Comment on above: Order Comment: Speci men Type: BLOOD SPECIMEN [facility] Address: [address] [place] [address], [place] [address] Performed By: #### 4 5066-8, 3094-0 #### [facility] CLIA [id number] [address] [place] [address] [place] Platelet mean volume (Bld) [Entitic vol] 10.1 fL Normal 9.0-12.7 [facility] Comment on above: Order Comment: Speci men Type: BLOOD SPECIMEN [facility] Address: [address] [place] [address], [place] [address] Performed By: #### 4 5066-8, 3094-0 #### [facility] CLIA [id number] [address] [place] [address] [place] Platelets (Bld) [#/Vol] 240 10*3/uL Normal 150-400 [facility] Comment on above: Order Comment: Speci men Type: BLOOD SPECIMEN [facility] Address: [address] [place] [address], [place] [address] Performed By: #### 4 5066-8, 3094-0 #### [facility] CLIA [id number] [address] [place] [address] [place] RBC (Bld) [#/Vol] 5.20 10*6/uL Normal 4.20-6.00 [facility] Comment on above: Order Comment: Rosario lawrence Type: BLOOD SPECIMEN [facility] Address: [address] [place] [address], [place] [address] Performed By: #### 4 5066-8, 3094-0 #### [facility] CLIA [id number] [address] [place] [address] [place] WBC (Bld) [#/Vol] 8.99 10*3/uL Normal 3.70-11.00 [facility] Comment on above: Order Comment: Rosario lawrence Type: BLOOD SPECIMEN Ordering Facility: [facility] Address: [address] [place] [address], [place] [address] Performed By: #### 4 5066-8, 3094-0 #### [facility] CLIA [id number] [address] [place] [address] [place] [facility] Creatinine and Glomerular fi ltration rate.predicted panel (S/P/Bld)on 02-11-2025 Creatinine [Mass/Vol] 0.39 mg/dL Low 0.73-1.22 [facility] Comment on above: Order Comment: Rosario lawrence Type: BLOOD SPECIMEN Ordering Facility: [facility] Address: [address] [place] [address], [place] [address] Performed By: #### 4 5066-8 #### [facility] CLIA [id number] [address] [place] [address] [place] eGFRcr SerPlBld CKD-EPI 2020 143 mL/min/1.73m??? Normal >=60 [facility] Comment on above: Order Comment: Rosario lawrence Type: BLOOD SPECIMEN [facility] Address: [address] [place] [address], [place] [address] Result Comment: Adele mated Glomerular Filtration Rate (eGFR) is calculated using the 2020 CKD-EPI creatinine equation. This equation utilizes serum creatinine, sex, and age as parameters. The creatinine assay has traceable calibration to isotope dilution-mass spectrometry. Refer to KDIGO guidelines for clinical interpretation. In patients with unstable renal function, e.g. those with acute kidney injury, the eGFR may not accurately reflect actual GFR. Performed By: #### 4 5066-8 #### [facility] CLIA [id number] [address] [place] [address] [place] Vancomycin random [Mass/Vol] on 02-11-2025 Vancomycin [Mass/Vol] 12.4 ug/mL Normal 10.0-20.0 [facility] Comment on above: Order Comment: Speci men Type: BLOOD SPECIMEN [facility] Address: [address] [place] [address] Result Comment: Refe rence ranges and high/low indicator flags are provided as general guidelines only. The treating physician must determine appropriate target levels/dosing based on the specific clinical situation. Performed By: #### 4 091-5 #### [facility] CLIA [id number] [address] [place] [address] [place] CBC W Auto Differential pane l (Bld)on 02-06-2025 Basophils (Bld) [#/Vol] 0.09 10*3/uL Normal <0.11 [facility] Comment on above: Order Comment: Speci men Type: BLOOD SPECIMENOrdering Facility: [facility] Address: [address] [place] [address] Performed By: #### 5 7021-8 ####[facility] [id number] [address] STATES OF [facility] Basophils/100 WBC (Bld) 1.0 % Normal [facility] Comment on above: Order Comment: Speci men Type: BLOOD SPECIMENOrdering Facility: [facility] Address: [address] [place] [address] Performed By: #### 5 7021-8 ####[facility] [id number] [address] STATES [facility] Differential cell count method Nom (Bld) Auto Normal [facility] Comment on above: Order Comment: Speci men Type: BLOOD SPECIMENOrdering Facility: [facility] Address: [address] [place] [address] Performed By: #### 5 7021-8 ####[facility] [id number] [address] [place] Eosinophils (Bld) [#/Vol] 0.22 10*3/uL Normal <0.46 [facility] Comment on above: Order Comment: Speci men Type: BLOOD SPECIMENOrdering Facility: [facility] Address: [address] [place] [address] Performed By: #### 5 7021-8 ####[facility]CLIA [id number] [address] [place] Eosinophils/100 WBC (Bld) 2.3 % Normal [facility] Comment on above: Order Comment: Speci men Type: BLOOD SPECIMENOrdering Facility: [facility] Address: [address] [place] [address] Performed By: #### 5 7021-8 ####[facility]CL[facility] [id number] [address] [place] Erythrocyte distribution width (RBC) [Ratio] 13.6 % Normal 11.5-15.0 [facility] Comment on above: Order Comment: Speci men Type: BLOOD SPECIMENOrdering Facility: [facility] Address: [address] [place] [address] Performed By: #### 5 7021-8 ####[facility] [id number] [address] Hematocrit (Bld) [Volume fraction] 45.1 % Normal 39.0-51.0 [facility] Comment on above: Order Comment: Speci men Type: BLOOD SPECIMENOrdering Facility: [facility] Address: [address] [place] [address] Performed By: #### 5 7021-8 ####[facility]CL[facility] [id number] [address] [place] Hemoglobin (Bld) [Mass/Vol] 15.5 g/dL Normal 13.0-17.0 [facility] Comment on above: Order Comment: Speci men Type: BLOOD SPECIMENOrdering Facility: [facility] Address: [address] [place] [address] Performed By: #### 5 7021-8 ####[facility]ORYCLIA [id number] [place] [address] [place] Immature granulocytes (Bld) [#/Vol] 0.09 10*3/uL Normal <0.10 [facility] Comment on above: Order Comment: Speci men Type: BLOOD SPECIMENOrdering Facility: [facility] Address: [address] [place] [address], [place] [address] Performed By: #### 5 7021-8 ####[facility]ORYCLIA [id number] [address] [place] Immature granulocytes/100 WBC (Bld) 1.0 % Normal [facility] Comment on above: Order Comment: Speci men Type: BLOOD SPECIMENOrdering Facility: [facility] Address: [address] [place] [address], [place] [address] Performed By: #### 5 7021-8 ####[facility]ORYCLIA [id number] [place] [address] [place] Lymphocytes (Bld) [#/Vol] 2.24 10*3/uL Normal 1.00-4.00 [facility] Comment on above: Order Comment: Speci men Type: BLOOD SPECIMENOrdering Facility: [facility] Address: [address] [place] [address], [place] [address] Performed By: #### 5 7021-8 ####[facility]ORYCLIA [id number] [address] Lymphocytes/100 WBC (Bld) 23.8 % Normal [facility] Comment on above: Order Comment: Speci men Type: BLOOD SPECIMENOrdering Facility: [facility] Address: [address] [place] [address], [place] [address] Performed By: #### 5 7021-8 ####BLAKELY LABORATORYCLIA [id number] [place] [address] [place] MCH (RBC) [Entitic mass] 29.0 pg Normal 26.0-34.0 [facility] Comment on above: Order Comment: Speci men Type: BLOOD SPECIMENOrdering Facility: [facility] Address: [address] [place] [address], [place] [address] Performed By: #### 5 7021-8 ####BLAKELY LABORATORYCLIA [id number] [place] [address] [place] MCHC (RBC) [Mass/Vol] 34.4 g/dL Normal 30.5-36.0 [facility] Comment on above: Order Comment: Speci men Type: BLOOD SPECIMENOrdering Facility: [facility] Address: [address] [place] [address], [place] [address] Performed By: #### 5 7021-8 ####BLAKELY LABORATORYCLIA [id number] [place] [id number] [place] MCV (RBC) [Entitic vol] 84.5 fL Normal 80.0-100.0 [facility] Comment on above: Order Comment: Speci men Type: BLOOD SPECIMENOrdering Facility: [facility] Address: [address] [place] [address] Performed By: #### 5 7021-8 ####BLAKELY LABORATORYCLIA [id number] [place] [address] [place] Monocytes (Bld) [#/Vol] 0.75 10*3/uL Normal <0.87 [facility] Comment on above: Order Comment: Speci men Type: BLOOD SPECIMENOrdering Facility: [facility] Address: [address] [place] [address], [place] [address] Performed By: #### 5 7021-8 ####BLAKELY LABORATORYCLIA [id number] [address] Monocytes/100 WBC (Bld) 8.0 % Normal [facility] Comment on above: Order Comment: Speci men Type: BLOOD SPECIMENOrdering Facility: [facility] Address: [address] [place] [address], [place] [address] Performed By: #### 5 7021-8 ####BLAKELY LABORATORYCLIA [id number] [place] [id number] [place] Neutrophils (Bld) [#/Vol] 6.01 10*3/uL Normal 1.45-7.50 [facility] Comment on above: Order Comment: Speci men Type: BLOOD SPECIMENOrdering Facility: [facility] Address: [address] [place] [address], [place] [address] Performed By: #### 5 7021-8 ####BLAKELY LABORATORYCLIA [id number] [address] Neutrophils/100 WBC (Bld) 63.9 % Normal [facility] Comment on above: Order Comment: Speci men Type: BLOOD SPECIMENOrdering Facility: [facility] Address: [address] [place] [address], [place] [address] Performed By: #### 5 7021-8 ####BLAKELY LABORATORYCLIA [id number] [place] [address] [place] Nucleated RBC (Bld) [#/Vol] 10*3/uL Normal <0.01 [facility] Comment on above: Order Comment: Speci men Type: BLOOD SPECIMENOrdering Facility: [facility] Address: [address] [place] [address] Performed By: #### 5 7021-8 ####BLAKELY LABORATORYCLIA [id number] [address] STATES [facility] Nucleated RBC/100 WBC (Bld) [Ratio] 0.0 /100 WBC Normal [facility] Comment on above: Order Comment: Speci men Type: BLOOD SPECIMENOrdering Facility: [facility] Address: [address] [place] [address] Performed By: #### 5 7021-8 ####BLAKELY LABORATORYCLIA [id number] [address] [place] Platelet mean volume (Bld) [Entitic vol] 9.4 fL Normal 9.0-12.7 [facility] Comment on above: Order Comment: Speci men Type: BLOOD SPECIMENOrdering Facility: [facility] Address: [address] [place] [address] Performed By: #### 5 7021-8 ####BLAKELY LABORATORYCLIA [id number] [address] Platelets (Bld) [#/Vol] 302 10*3/uL Normal 150-400 [facility] Comment on above: Order Comment: Speci men Type: BLOOD SPECIMENOrdering Facility: [facility] Address: [address] [place] [address], [place] [address] Performed By: #### 5 7021-8 ####BLAKELY LABORATORYCLIA [id number] [place] [address] [place] RBC (Bld) [#/Vol] 5.34 10*6/uL Normal 4.20-6.00 [facility] Comment on above: Order Comment: Speci men Type: BLOOD SPECIMENOrdering Facility: [facility] Address: [address] [place] [address], [place] [address] Performed By: #### 5 7021-8 ####BLAKELY LABORATORYCLIA [id number] [place] [address] [place] WBC (Bld) [#/Vol] 9.40 10*3/uL Normal 3.70-11.00 [facility] Comment on above: Order Comment: Speci men Type: BLOOD SPECIMENOrdering Facility: [facility] Address: [address] [place] [address] Performed By: #### 5 7021-8 ####BLAKELY LABORATORYCLIA [id number] [address] STATES OF [facility] Creatinine and Glomerular fi ltration rate.predicted panel (S/P/Bld)on 02-06-2025 Creatinine [Mass/Vol] 0.43 mg/dL Low 0.73-1.22 [facility] Comment on above: Order Comment: Speci men Type: BLOOD SPECIMENOrdering Facility: [facility] Address: [address] [place] [address], [place] [address] Performed By: #### 4 5066-8 ####BLAKELY LABORATORYCLIA [id number] [place] [id number] [place] eGFRcr SerPlBld CKD-EPI 2020 139 mL/min/1.73m??? Normal >=60 [facility] Comment on above: Order Comment: Speci men Type: BLOOD SPECIMENOrdering Facility: [facility] Address: [address] [place] [address], [place] [address] Result Comment: Adele mated Glomerular Filtration Rate (eGFR) is calculated using the 2020 CKD-EPI creatinine equation. This equation utilizes serum creatinine, sex, and age as parameters. The creatinine assay has traceable calibration to isotope dilution-mass spectrometry. Refer to KDIGO guidelines for clinical interpretation. In patients with unstable renal function, e.g. those with acute kidney injury, the eGFR may not accurately reflect actual GFR. Performed By: #### 4 5066-8 ####ALISO VIEJO LABORATORYCLIA [id number] [address] OF [facility] Vancomycin [place] SerPl-mCncon 02-06-2025 Vancomycin random [Mass/Vol] 9.8 ug/mL Low 10.0-20.0 [facility] Comment on above: Order Comment: Speci men Type: BLOOD SPECIMENOrdering Facility: [facility] Address: [address] [place] [address], [place] [address] Result Comment: Refe rence ranges and high/low indicator flags are provided as general guidelines only. The treating physician must determine appropriate target levels/dosing based on the specific clinical situation. Performed By: #### 4 091-5 ####ALISO VIEJO LABORATORYCLIA [id number] [address] CNOVon 02-05-2025 CNOV Office Visit (PLWDMR ) NADEEN HOBSON ([id number]) 1985 M Date Time Provider Department 02/05/25 2:30 PM GABI CARRION PLWDMR During your visit today, we recorded the following information about you: Temperature Pulse Blood pressure 97.2 degrees 84/minute 139/82 Gabi Carrion MD 02/06/2025 8:14 AM Signed INFECTIOUS DISEASE WOUND CENTER NOTE Patient Name: Nadeen Hobson Date: 02/05/2025 ASSESSMENT: Complicated UTI (urinary tract infection) (POA: Yes) Paraplegia (HCC) (POA: Yes) Primary hypertension (POA: Yes) Type 2 diabetes (HCC) (POA: Yes) Neurogenic bladder (POA: Yes) Obesity, Class I, BMI 30.0-34.9 (see actual BMI) (POA: Yes) Hyponatremia (POA: Yes) Sepsis (HCC) (POA: Yes) Constipation (POA: Yes) RECOMMENDATIONS: CT ABD/PEL WO IVCON (01/28/2025 2:20 PM) Stopped Rocephin Urine culture growing E. Coli MRI w ischial OM. Attempted biopsy/drainage with interventional radiology but failed Elevate CRP 13.7 MRI PELVIS WO/W IVCON (01/29/2025 6:02 PM) Continue Cefepime Continue Vancomycin Follows labs Orthopedic following Labs reviewed and discussed. No new labs since IV antibiotics was restarted only yesterday. PICC care CoPat instructions Follow-up at the wound center in 6 weeks I have reviewed and interpreted all lab test imaging studies and documentations from other healthcare providers I am monitoring antibiotics for side effects and toxicity INTERVAL HISTORY: ROS done with pt and negative unless stated. 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 The patient has had no fevers or chills. He is doing well otherwise. He is tolerating antibiotics without any problems. No problems with the PICC line noted. MEDICATIONS: vancomycin 1.75 g in NaCl 0.9% 500 mL (VANCOCIN) Inject 1.75 g intravenously every 12 hours. Stop date 03/13/25. cefepime 2 g in NaCl 0.9% 100 mL (MAXIPIME) Inject 2 g intravenously every 8 hours. Stop date 03/13/25. sodium chloride 0.9 %, flush, (MONOJECT PREFILL SALINE FLUSH INJECTION) Inject 10 mL intravenously three times a day. cefepime (MAXIPIME) 2 g in D5W 100 mL Inject 100 mL intravenously every 8 hours. polyethylene glycol 3350 17 gram packet Take 1 packet by mouth once daily as needed for constipation. Dissolve dose in 4 - 8 ounces of liquid and take as directed. senna (SENOKOT) 8.6 mg tab Take 1 tablet by mouth two times a day. vancomycin (VANCOCIN) 1.75 g in D5W 500 mL Inject 500 mL intravenously every 12 hours. tirzepatide (MOUNJARO) 7.5 mg/0.5 mL pen injector Inject 7.5 mg subcutaneously one time a week. metFORMIN ER (GLUCOPHAGE XR) 500 mg 24 hr tablet Take 1 tablet by mouth every 12 hours. Blood-Glucose Sensor ([employer] G7 SENSOR) jaime Apply 1 Each as directed every 10 days. blood sugar diagnostic (ACCU-CHEK GUIDE TEST STRIPS) test strip Use with blood glucose test four times a day. Insulin Dep? Yes Blood-Glucose Meter (ACCU-CHEK GUIDE ME GLUCOSE MTR) 1 Each as needed. losartan (COZAAR) 100 mg tablet Take 100 mg by mouth once daily. oxybutynin ER (DITROPAN XL) 15 mg 24 hr Extended Rel Tab Take 15 mg by mouth once daily. CATHETER 12 FR-16 Use as directed PHYSICAL EXAM: Vital signs: stable, afeb General: alert, oriented, NAD Lungs: bilaterally clear to auscultation Heart: regular rate and rhythm Abdomen: soft, non tender, non distended, BS+ Extremities: no swollen joints Skin: no rash No open wound in the ischial area. No tenderness or superficial signs of infection Lab data: reviewed WBC Date Value 02/01/2025 7.60 k/uL 01/31/2025 7.12 k/uL 01/30/2025 6.08 k/uL 12/02/2018 7.9 thou/cmm 01/11/2017 10.3 thou/cmm 11/26/2013 14.60 k/uL Hemoglobin (g/dL) Date Value 02/01/2025 14.8 01/31/2025 14.2 01/30/2025 14.1 11/26/2013 16.6 HGB (g/dL) Date Value 12/02/2018 15.1 01/11/2017 15.0 INR (no units) Date Value 01/31/2025 1.0 Sodium Date Value 02/01/2025 140 mmol/L 01/31/2025 140 mmol/L 01/30/2025 139 mmol/L 12/02/2018 137 mEq/L 11/30/2017 136 mEq/L 01/11/2017 140 mEq/L Potassium Date Value 02/01/2025 4.3 mmol/L 01/31/2025 4.5 mmol/L 01/30/2025 4.2 mmol/L 12/02/2018 4.4 mEq/L 11/30/2017 3.5 mEq/L 01/11/2017 3.7 mEq/L CO2 Date Value 02/01/2025 24 mmol/L 01/31/2025 26 mmol/L 01/30/2025 26 mmol/L 12/02/2018 29 mEq/L 11/30/2017 27 mEq/L 01/11/2017 29 mEq/L BUN (mg/dL) Date Value 02/01/2025 10 01/31/2025 10 01/30/2025 10 12/02/2018 11 11/30/2017 11 01/11/2017 4 Creatinine (mg/dL) Date Value 02/01/2025 0.41 01/31/2025 0.61 01/30/2025 0.52 12/02/2018 0.44 11/30/2017 0.48 01/11/2017 0.44 AST (U/L) Date Value 01/28/2025 20 08/20/2022 22 12/02/2018 26 11/30/2017 (more content not included)... Normal [facility] CBC panel Auto (Bld)on 02-01 Erythrocyte distribution width (RBC) [Ratio] 13.4 % Normal 11.5-15.0 [facility] Comment on above: Order Comment: Speci men Type: BLOOD SPECIMENOrdering Facility: [facility] Address: [address] [place] [address] Performed By: #### 5 8410-2 ####ALISO VIEJO LABORATORYCLIA [id number] [address] STATES OF [facility] Hematocrit (Bld) [Volume fraction] 43.4 % Normal 39.0-51.0 [facility] Comment on above: Order Comment: Speci men Type: BLOOD SPECIMENOrdering Facility: [facility] Address: [address] [place] [address] Performed By: #### 5 8410-2 ####ALISO VIEJO LABORATORYCLIA [id number] [address] [place] Hemoglobin (Bld) [Mass/Vol] 14.8 g/dL Normal 13.0-17.0 [facility] Comment on above: Order Comment: Speci men Type: BLOOD SPECIMENOrdering Facility: [facility] Address: [address] [place] [address] Performed By: #### 5 8410-2 ####BLAKELY LABORATORYCLIA [id number] [address] MCH (RBC) [Entitic mass] 28.8 pg Normal 26.0-34.0 [facility] Comment on above: Order Comment: Speci men Type: BLOOD SPECIMENOrdering Facility: [facility] Address: [address] [place] [address] Performed By: #### 5 8410-2 ####BLAKELY LABORATORYCLIA [id number] [address] MCHC (RBC) [Mass/Vol] 34.1 g/dL Normal 30.5-36.0 [facility] Comment on above: Order Comment: Speci men Type: BLOOD SPECIMENOrdering Facility: [facility] Address: [address] [place] [address] Performed By: #### 5 8410-2 ####BLAKELY LABORATORYCLIA [id number] [address] MCV (RBC) [Entitic vol] 84.6 fL Normal 80.0-100.0 [facility] Comment on above: Order Comment: Speci men Type: BLOOD SPECIMENOrdering Facility: [facility] Address: [address] [place] [address] Performed By: #### 5 8410-2 ####BLAKELY LABORATORYCLIA [id number] [address] Nucleated RBC (Bld) [#/Vol] 10*3/uL Normal <0.01 [facility] Comment on above: Order Comment: Speci men Type: BLOOD SPECIMENOrdering Facility: [facility] Address: [address] [place] [address] Performed By: #### 5 8410-2 ####BLAKELY LABORATORYCLIA [id number] [address] Platelet mean volume (Bld) [Entitic vol] 9.5 fL Normal 9.0-12.7 [facility] Comment on above: Order Comment: Speci men Type: BLOOD SPECIMENOrdering Facility: [facility] Address: [address] [place] [address] Performed By: #### 5 8410-2 ####BLAKELY LABORATORYCLIA [id number] [address] Platelets (Bld) [#/Vol] 265 10*3/uL Normal 150-400 [facility] Comment on above: Order Comment: Speci men Type: BLOOD SPECIMENOrdering Facility: [facility] Address: [address] [place] [address] Performed By: #### 5 8410-2 ####BLAKELY LABORATORYCLIA [id number] [address] [place] RBC (Bld) [#/Vol] 5.13 10*6/uL Normal 4.20-6.00 [facility] Comment on above: Order Comment: Speci men Type: BLOOD SPECIMENOrdering Facility: [facility] Address: [address] [place] [address] Performed By: #### 5 8410-2 ####BLAKELY LABORATORYCLIA [id number] [address] WBC (Bld) [#/Vol] 7.60 10*3/uL Normal 3.70-11.00 [facility] Comment on above: Order Comment: Speci men Type: BLOOD SPECIMENOrdering Facility: [facility] Address: [address] [place] [address] Performed By: #### 5 8410-2 ####BLAKELY LABORATORYCLIA [id number] [place] [id number] [facility] CNDSon 02-01-2025 CNDS HNO ID: [id number] Author: CHARMAINE FISHER MD Service: Hospital Medicine Author Type: Physician Type: Discharge Summary Filed: 02/01/2025 16:02 Note Text: -year-old DISCHARGE SUMMARY PATIENT NAME: Nadeen Hobson Code Status: Full Code Highest Readmission Risk Score: 19 The 30 day readmissions risk score is derived from an internally validated risk model which evaluates patient level characteristics, utilization history, medication orders and lab results up until the day of discharge. Patients with a score of 39 or above are considered highest risk for readmission. Specific patient level drivers will be listed at the bottom of the summary. Admission Information Admission Information ADMIT DATE: 01/28/2025 DISCHARGE DATE: 02/01/25 MY DOCTORS AND MEDICAL TEAM: My Main Hospital Doctor: Charmaine Fisher MD Primary Care Provider: Javed Pacheco MD My Medical Team Members: Treatment Team: Attending Provider: Charmaine Fisher MD Consulting: Gabi Carrion MD Primary Service: , [facility] Consulting: Spencer Hopkins MD MY CONDITION AT DISCHARGE: Stable REASON I WAS IN THE HOSPITAL: Urinary tract infection SUMMARY OF WHAT HAPPENED WHILE I WAS IN THE HOSPITAL: You presented to the hospital with a complaint of urinary tract infection. CT abdomen and pelvis also showed concern for bone infection in your pelvis region, MRI of the pelvis was done which confirmed the bone infection. You were seen by orthopedics, no surgery was recommended. IR guided drainage was attempted but no fluid was obtained. Per ID recommendations you are being discharged home on IV antibiotics. IV antibiotics will start on Tuesday over the weekend you are being discharged home on oral antibiotics. You should follow-up with the wound care center at [facility]. You are encouraged to use MiraLAX and senna regularly to have daily bowel movements to prevent recurrent urinary tract infections. OTHER PROBLEMS/DIAGNOSIS: Principal Problem: Complicated UTI (urinary tract infection) Active Problems: Paraplegia (HCC) Primary hypertension Type 2 diabetes (HCC) Neurogenic bladder Obesity, Class I, BMI 30.0-34.9 (see actual BMI) Hyponatremia Sepsis (HCC) Constipation Abnormal CT of the abdomen Osteomyelitis (HCC) Resolved Problems: * No resolved hospital problems. * OPERATIONS PERFORMED WHILE IN THE HOSPITAL: None IMPORTANT TEST/PROCEDURES: No procedures performed TEST RESULTS NOT AVAILABLE AT THIS TIME: No pending results Discharge Disposition Discharge Disposition: Home With Home Care Additional Provider to Provider Information: 39 y/o M with a PMH of HTN, T2DM, paraplegia with neurogenic bladder (self-catheterizes at home), recurrent UTI's admitted with persistent lower urinary tract symptoms. Patient presented to [facility] this AM with 1-2 month hx of lower abdominal pain, back pain, urgency, leaking, myalgia and chills, conssitent with prior infections. In the ER vital signs were stable except tachycardia UA was suspicious for UTI, CT abdomen and pelvis showed nonobstructive right renal calculi, soft tissue induration extending from skin surface to distal tuberosity bilaterally possibly representing osteomyelitis. Patient was given IV Rocephin and was transferred to [facility] for further evaluation. Urine culture grew Escherichia coli. MRI of the pelvis with and without contrast was done to evaluate the CT scan findings which showed osteomyelitis of the left ischial tuberosity with a possible complex abscess. Orthopedics was consulted, they recommended no surgical intervention but recommended IR guided drainage. IR was consulted for drainage of the possible abscess but no fluid was obtained. Per ID recommendations patient is being discharged home on IV antibiotics, vancomycin and cefepime till the 03/13/2025. Home health care could start taking care of the patient from 02/04/2025, patient insisted on being discharged and is being discharged home on oral antibiotics Bactrim and levofloxacin over the weekend and will resume IV vancomycin and cefepime starting 02/04/2025 till 03/13/2025. Treatment Team: Attending Provider: Charmaine Fisher MD Consulting: Gabi Carrion MD Primary Service: , [facility] Consulting: Spencer Hopkins MD FINAL DIAGNOSIS: Complicated UTI, osteomyelitis Active Hospital Problems Diagnosis POA Complicated UTI (urinary tract infection) Yes Osteomyelitis (HCC) Yes Abnormal CT of the abdomen Yes Hyponatremia Yes Sepsis (HCC) Yes Constipation Yes Obesity, Class I, BMI 30.0-34.9 (see actual BMI) Yes Primary hypertension Yes Type 2 diabetes (HCC) Yes Paraplegia (HCC) Yes Neurogenic bladder Yes Resolved Hospital Problems No resolved problems to display. Transitions of Care Critical Issues: SPECIALIST FOLLOW-UP: Infectious disease LABS AND PROCEDURES PENDING AT DISCHARGE: FOLLOW-UP AP (more content not included)... Normal [facility] 02-01-2025 [facility] Telephone (HCSIND) NADEEN HOBSON ([id number]) 1985 M Date Time Provider Department 02/01/25 FRANCOIS CRUZ HCSIND During your visit today, we recorded the following information about you: Francois Cruz PSS 02/01/2025 2:49 PM Signed CONFIRMATION CALL a. Date and Time: 2:45 PM 02/01/2025 b. Contact name/relationship: patient C. Service Address- [address] [place], [place] [id number] Home or Apartment: home Have you been active with any Home Care company in the last 60 days? No. Caregiver: Yes - Caregiver name Mother/Radha ; spoke with patient to confirm Radha/Mother (CG must be available for SOC/LEONEL and the following 3-4 visits or until independent) Was patient given Flu shot this Season (After Dec,): No: Patient refused KARL Ramirez Allergies As of Date: 02/01/2025 Noted Allergy Reaction TRULICITY (DULAGLUTIDE) 10/25/2023 8 - GI Upset 14 - Other: See Comments Comments: Abdominal pain, bloating BEES 06/17/2006 7 - Swelling Comments: As a child - has been stung since with no anaphylactic reaction, does not carry an epi-pen OZEMPIC (SEMAGLUTIDE) 10/25/2023 8 - GI Upset Comments: Fatigue, nausea Date Reviewed: 02/01/2025 Reviewed by: Kristal Funk, KRISHNA - Fully Assessed Reason for Visit: Home Care [4073] Cmt: Confirmation Call Prescriptions as of 02/01/2025 - tirzepatide (MOUNJARO) 7.5 mg/0.5 mL pen injector Inject 7.5 mg subcutaneously one time a week. - metFORMIN ER (GLUCOPHAGE XR) 500 mg 24 hr tablet Take 1 tablet by mouth every 12 hours. - Blood-Glucose Sensor ([employer] G7 SENSOR) jaime Apply 1 Each as directed every 10 days. - blood sugar diagnostic (ACCU-CHEK GUIDE TEST STRIPS) test strip Use with blood glucose test four times a day. Insulin Dep? Yes - Blood-Glucose Meter (ACCU-CHEK GUIDE ME GLUCOSE MTR) 1 Each as needed. - losartan (COZAAR) 100 mg tablet Take 100 mg by mouth once daily. - oxybutynin ER (DITROPAN XL) 15 mg 24 hr Extended Rel Tab Take 15 mg by mouth once daily. - CATHETER 12 FR-16 Use as directed Facility-Administered Medications as of 02/01/2025 - vancomycin 1.75 g in D5W 500 mL (VANCOCIN) - cefepime 2 g in D5W 100 mL Vial-Bag (MAXIPIME) - vancomycin dosing and monitoring per pharmacy - polyethylene glycol 3350 17 g packet - acetaminophen 1,000 mg tab(s) (TYLENOL) - traMADol 50 mg tab(s) (ULTRAM) - NaCl 0.9% iv flush bag - losartan 100 mg tab(s) (COZAAR) - dextrose 40 % 15 g - glucagon 1 mg injection - dextrose 10% iv bolus - insulin lispro injection (rapid acting) ([employer]log) - trospium 20 mg tab(s) (SANCTURA) - senna 8.6 mg tab(s) (SENOKOT) Problem List As Of Date 02/01/2025 Noted Resolved ABNORMALITY OF GAIT [R26.9] 06/17/2006 Paraplegia (HCC) [G82.20] 07/26/2007 SPINAL CORD INJURY NOS [VRC6552] 07/26/2007 ORCHITIS/EPIDIDYMIT NOS [N45.3] 10/11/2007 Acute pain of right shoulder [M25.511] 06/22/2017 Shoulder stiffness, right [M25.611] 06/22/2017 H/O spinal cord injury [Z87.828] 2021 Leg weakness, bilateral [R29.898] 2021 Primary hypertension [I10] 2021 Type 2 diabetes (HCC) [E11.9] 2021 Neurogenic bladder [N31.9] 02/21/2006 Neurogenic bowel [K59.2] 02/21/2006 Obesity, Class I, BMI 30.0-34.9 (see actual BMI*07/09/2024 Complicated UTI (urinary tract infection) [N39.*01/28/2025 Hyponatremia [E87.1] 01/28/2025 Sepsis (HCC) [A41.9] 01/28/2025 Constipation [K59.00] 01/28/[address] of the abdomen [R93.5] 01/29/2025 Osteomyelitis (HCC) [M86.9] 01/30/2025 Encounter Status:Closed by FRANCOIS CRUZ on 02/01/25 [facility] CONSULT PROGon 02-01-2025 CONSULT PROG HNO ID: [id number] Author: AUREA BONILLA RPh Service: Pharmacy Author Type: Pharmacist Type: Consult Progress Note Filed: 02/01/2025 10:45 Note Text: PHARMACY VANCOMYCIN DOSING NOTE Patient Name: Nadeen Hobson Admission Date: 01/28/2025 Date of Consult: 02/01/2025 Time of Consult: 10:42 AM Indication: Bone and joint infection Goal Range: 15-20 mcg/mL RECOMMENDATIONS/PLAN: Pharmacy consulted for vancomycin dosing for Nadeen Hobson, a 39 year old male. 1. Patient is currently ordered Vancomycin 1.25 g IV q12h. Today is day 3 of therapy. 2. The most recent vancomycin level was 6.5 mcg/mL drawn at 0915 on 02/01. This is a 11 hour level on the 3rd day of therapy. 3. Will increase vancomycin to 1.75 g with a dosing interval of q12h. 4. The next vancomycin level will be ordered for 02/03 unless clinically indicated sooner. (Pharmacy will order) We will follow patient renal function, vancomycin levels and doses with you during the course of therapy. Additional recommendations will appear in follow up notes. If you have any questions, please contact pharmacy at [phone]. Age: [age] year old Allergies: ALLERGIES Allergen Reactions Trulicity [Dulaglut* GI Upset, Other: See Comments Abdominal pain, bloating Bees Swelling As a child - has been stung since with no anaphylactic reaction, does not carry an epi-pen Ozempic [Semaglutid* GI Upset Fatigue, nausea Last 3 Encounter Wt Readings: Date: Wt: 01/28/2025 86.5 kg (190 lb 11.2 oz) 01/28/2025 81.6 kg (180 lb) 12/18/2024 82.6 kg (182 lb) Last 1 Encounter Ht Readings: Date: Ht: 01/28/2025 177.8 cm (5' 10) CrCl: 249 mL/min Temp (24hrs), Av.7 ?C (98 ?F), Min:36.4 ?C (97.6 ?F), Max:36.9 ?C (98.4 ?F) - Current Temp: 36.9 ?C (98.4 ?F) Labs BUN (mg/dL) Date Value 02/01/2025 10 01/31/2025 10 01/30/2025 10 Creatinine (mg/dL) Date Value 02/01/2025 0.41 (L) 01/31/2025 0.61 (L) 01/30/2025 0.52 (L) WBC (k/uL) Date Value 02/01/2025 7.60 01/31/2025 7.12 01/30/2025 6.08 Vancomycin Levels: Vancomycin (ug/mL) Date/Time Value 02/01/2025 0915 6.5 (L) Aurea Bonilla [facility] CONSULT PROG HNO ID: [id number] Author: GABI CARRION MD Service: Infectious Disease Author Type: Physician Type: Consult Progress Note Filed: 02/02/2025 00:29 Note Text: INFECTIOUS DISEASE PROGRESS NOTE Patient Name: Nadeen Hosbon INTERVAL HISTORY: PICC placed CoPat on chart Patient Active Hospital Problem List: Complicated UTI (urinary tract infection) Date Noted: 01/28/2025 Paraplegia (HCC) Date Noted: 07/26/2007 Primary hypertension Date Noted: 2021 Type 2 diabetes (HCC) Date Noted: 2021 Neurogenic bladder Date Noted: 02/21/2006 Obesity, Class I, BMI 30.0-34.9 (see actual BMI) Date Noted: 07/09/2024 Hyponatremia Date Noted: 01/28/2025 Sepsis (HCC) Date Noted: 01/28/2025 Constipation Date Noted: 01/28/[address] of the abdomen Date Noted: 01/29/2025 Osteomyelitis (HCC) Date Noted: 01/30/2025 ASSESSMENT: Complicated UTI (urinary tract infection) (POA: Yes) Paraplegia (HCC) (POA: Yes) Primary hypertension (POA: Yes) Type 2 diabetes (HCC) (POA: Yes) Neurogenic bladder (POA: Yes) Obesity, Class I, BMI 30.0-34.9 (see actual BMI) (POA: Yes) Hyponatremia (POA: Yes) Sepsis (HCC) (POA: Yes) Constipation (POA: Yes) RECOMMENDATIONS: CT ABD/PEL WO IVCON (01/28/2025 2:20 PM) Stopped Rocephin Urine culture growing E. Coli Unable to do CT w contrast due to allergy so ordered MRI. Elevate CRP 13.7 MRI PELVIS WO/W IVCON (01/29/2025 6:02 PM) Stopped Zosyn Continue Cefepime D2 Continue Vancomycin D3 Monitor Vancomycin T Follows labs Orthopedic following PICC placed CoPat on chart but SOC cannot be done till Tuesday and may need to be discharged on PO abx thru weekend to start IV abx on Tuesday. Discussed w CM, IM service I have reviewed and interpreted all lab test imaging studies and documentations from other healthcare providers I am monitoring antibiotics for side effects and toxicity MEDICATIONS: reviewed. Current Facility-Administered Medications Medication Dose Route Frequency NaCl 0.9% iv flush bag 20 mL INTRAVENOUS PRN losartan 100 mg tab(s) (COZAAR) 100 mg ORAL DAILY dextrose 40 % 15 g 15 g ORAL PRN Or glucagon 1 mg injection 1 mg INTRAMUSCULAR PRN Or dextrose 10% iv bolus 12.5 g INTRAVENOUS PRN insulin lispro injection (rapid acting) (ADMElog) SUBCUTANEOUS w MEALS trospium 20 mg tab(s) (SANCTURA) 20 mg ORAL BID AC senna 8.6 mg tab(s) (SENOKOT) 8.6 mg ORAL BID polyethylene glycol 3350 17 g packet 17 g ORAL DAILY PRN acetaminophen 1,000 mg tab(s) (TYLENOL) 1,000 mg ORAL q 6 H PRN traMADol 50 mg tab(s) (ULTRAM) 50 mg ORAL q 6 H PRN vancomycin dosing and monitoring per pharmacy OTHER As Directed vancomycin iv piggyback 1.25 g in D5W 250 mL (VANCOCIN) 1.25 g INTRAVENOUS q 12 HR cefepime 2 g in D5W 100 mL Vial-Bag (MAXIPIME) 2 g INTRAVENOUS q 8 H PHYSICAL EXAM: Vital signs: BP 128/88 Pulse 93 Temp 36.4 ?C (97.6 ?F) (Oral) Resp 18 Ht 177.8 cm (5' 10) Wt 86.5 kg (190 lb 11.2 oz) SpO2 99% BMI 27.36 kg/m? Temp (24hrs), Av.8 ?C (98.3 ?F), Min:36.4 ?C (97.6 ?F), Max:37 ?C (98.6 ?F) General: alert, oriented, NAD Lungs: bilaterally clear to auscultation Heart: regular rate and rhythm Abdomen: soft, non tender, non distended, BS+ Extremities: no edema No rashes No joint inflammation Neck supple Lines ok No CVAT Lines, Drains, and Airways Line Duration Central Line Single Lumen 01/31/25 1642 Peripherally Inserted (PICC) Left Arm Through Introducer 4.0 Polish <1 day Labs: Hemoglobin (g/dL) Date Value 02/01/2025 14.8 11/26/2013 16.6 HGB (g/dL) Date Value 12/02/2018 15.1 Hematocrit (%) Date Value 02/01/2025 43.4 12/02/2018 43.8 WBC Date Value 02/01/2025 7.60 k/uL 12/02/2018 7.9 thou/cmm Glucose (mg/dL) Date Value 01/31/2025 121 12/02/2018 157 Potassium Date Value 01/31/2025 4.5 mmol/L 12/02/2018 4.4 mEq/L Sodium Date Value 01/31/2025 140 mmol/L 12/02/2018 137 mEq/L Chloride Date Value 01/31/2025 104 mmol/L 12/02/2018 105 mEq/L CO2 Date Value 01/31/2025 26 mmol/L 12/02/2018 29 mEq/L Creatinine (mg/dL) Date Value 01/31/2025 0.61 12/02/2018 0.44 BUN (mg/dL) Date Value 01/31/2025 10 12/02/2018 11 Anion Gap Date Value 01/31/2025 10 mmol/L 12/02/2018 7 Calcium (mg/dL) Date Value 12/02/2018 8.9 Calcium, Total (mg/dL) Date Value 01/31/2025 8.8 Microbiology data: reviewed Imaging data: reviewed Malinda Jimenez, CONSUELO Pager: I personally saw and evaluated the patient. I reviewed the PLAYGROUND EQUIPMENT ERECTOR Hx, exam and MDM and I agree with the PLAYGROUND EQUIPMENT ERECTOR assessment and plan unless otherwise addended above. Gabi Carrion MD [phone] Date of service: 01/31/2025 Time of service 0652 Normal [facility] Renal function 2000 panelon 02-01-2025 Albumin [Mass/Vol] 4.1 g/dL Normal 3.9-4.9 [facility] Comment on above: Order Comment: Speci men Type: BLOOD SPECIMEN Ordering Facility: [facility] Address: [address] [place] [address] Performed By: #### 2 4362-6 #### [facility] CLIA [id number] [address] [place] [address] [place] Anion gap [Moles/Vol] 12 mmol/L Normal 8-15 [facility] Comment on above: Order Comment: Speci men Type: BLOOD SPECIMEN Ordering Facility: [facility] Address: [address] [place] [address] Performed By: #### 2 4362-6 #### [facility] CLIA [id number] [address] [place] [address] [place] Calcium [Mass/Vol] 8.7 mg/dL Normal 8.5-10.2 [facility] Comment on above: Order Comment: Speci men Type: BLOOD SPECIMEN Ordering Facility: [facility] Address: [address] [place] [address] Performed By: #### 2 4362-6 #### [facility] CLIA [id number] [address] [place] [address] [place] Chloride [Moles/Vol] 104 mmol/L Normal 98-107 [facility] Comment on above: Order Comment: Speci men Type: BLOOD SPECIMEN Ordering Facility: [facility] Address: [address] [place] [address] Performed By: #### 2 4362-6 #### [facility] CLIA [id number] [address] [place] [address] [place] CO2 [Moles/Vol] 24 mmol/L Normal 22-30 [facility] Comment on above: Order Comment: Speci men Type: BLOOD SPECIMEN Ordering Facility: [facility] Address: [address] [place] [address] Performed By: #### 2 4362-6 #### [facility] CLIA [id number] [address] [place] [facility] Creatinine [Mass/Vol] 0.41 mg/dL Low 0.73-1.22 [facility] Comment on above: Order Comment: Rosario lawrence Type: BLOOD SPECIMEN Ordering Facility: [facility] Address: [address] [place] [address] Performed By: #### 2 4362-6 #### [facility] CLIA [id number] [address] eGFRcr SerPlBld CKD-EPI 2020 141 mL/min/1.73m??? Normal >=60 [facility] Comment on above: Order Comment: Rosario lawrence Type: BLOOD SPECIMEN Ordering Facility: [facility] Address: [address] [place] [address] Result Comment: Adele mated Glomerular Filtration Rate (eGFR) is calculated using the 2020 CKD-EPI creatinine equation. This equation utilizes serum creatinine, sex, and age as parameters. The creatinine assay has traceable calibration to isotope dilution-mass spectrometry. Refer to KDIGO guidelines for clinical interpretation. In patients with unstable renal function, e.g. those with acute kidney injury, the eGFR may not accurately reflect actual GFR. Performed By: #### 2 4362-6 #### [facility] CLIA [id number] [address] Glucose [Mass/Vol] 128 mg/dL High 74-99 [facility] Comment on above: Order Comment: Rosario lawrence Type: BLOOD SPECIMEN Ordering Facility: [facility] Address: [address] [place] [address] Result Comment: The [place] Diabetes Association (ADA) provides guidance for cutoff values for fasting glucose and random glucose. The ADA defines fasting as no caloric intake for at least 8 hours. Fasting plasma glucose results between 100 to 125 mg/dL indicate increased risk for diabetes (prediabetes). Fasting plasma glucose results greater than or equal to 126 mg/dL meet the criteria for diagnosis of diabetes. In the absence of unequivocal hyperglycemia, results should be confirmed by repeat testing. In a patient with classic symptoms of hyperglycemia or hyperglycemic crisis, random plasma glucose results greater than or equal to 200 mg/dL meet the criteria for diagnosis of diabetes. Reference: Standards of Medical Care in Diabetes 2016, [place] Diabetes Association. Diabetes Care. 2016.39(Suppl 1). Performed By: #### 2 4362-6 #### [facility] CLIA [id number] [address] [place] [address] [place] Phosphate [Mass/Vol] 3.2 mg/dL Normal 2.7-4.8 [facility] Comment on above: Order Comment: Speci men Type: BLOOD SPECIMEN Ordering Facility: [facility] Address: [address] [place] [address] Performed By: #### 2 4362-6 #### [facility] CLIA [id number] [address] [place] [address] [place] Potassium [Moles/Vol] 4.3 mmol/L Normal 3.7-5.1 [facility] Comment on above: Order Comment: Speci men Type: BLOOD SPECIMEN Ordering Facility: [facility] Address: [address] [place] [address] Performed By: #### 2 4362-6 #### [facility] CLIA [id number] [address] [place] Sodium [Moles/Vol] 140 mmol/L Normal 136-144 [facility] Comment on above: Order Comment: Patti men Type: BLOOD SPECIMEN Ordering Facility: [facility] Address: [address] [place] [address] Performed By: #### 2 4362-6 #### [facility] CLIA [id number] [address] [place] [address] [place] Urea nitrogen [Mass/Vol] 10 mg/dL Normal 9-24 [facility] Comment on above: Order Comment: Speci men Type: BLOOD SPECIMEN Ordering Facility: [facility] Address: [address] [place] [address] Performed By: #### 2 4362-6 #### [facility] CLIA [id number] [address] [place] [address] [place] Vancomycin [place] SerPl-mCncon 02-01-2025 Vancomycin random [Mass/Vol] 6.5 ug/mL Low 10.0-20.0 [facility] Comment on above: Order Comment: Speci men Type: BLOOD SPECIMENOrdering Facility: [facility] Address: [address] [place] [id number] Result Comment: Refe rence ranges and high/low indicator flags are provided as general guidelines only. The treating physician must determine appropriate target levels/dosing based on the specific clinical situation. Performed By: #### 4 091-5 ####[facility] [id number] [address] [place] ALLIED HEALTHon 01-31-2025 ALLIED HEALTH HNO ID: [id number] Author: CAMERON VIGIL TECHNOLOGIST Service: Radiology Author Type: Technologist Type: Allied Health Filed: 01/31/2025 14:46 Note Text: Radiology Service Progress Note PATIENT NAME: Nadeen Hobson DATE OF SERVICE: January 31, 2025 TIME: 2:46 PM PATIENT IDENTITY VERIFICATION COMPLETED USING TWO (2) IDENTIFIERS: Name and Date of confirmed by patient verbally and Name and Date of confirmed by identification band. FALL SCREENING: Has the patient had 2 falls in the last year or 1 fall with injury or currently using an Ambulatory Assistive Device (Walker, Cane, Wheelchair, Crutches, etc.)? No PATIENT GENDER DATA: Assigned male at PATIENT RELEVANT IMPLANT DATA REVIEWED: Yes PATIENT PRESENTS WITH AN IMPLANTABLE OR ATTACHED SUPERVISOR PACKING ROOM: No RADIOLOGY DEPARTMENT: Biopsy PERIPHERAL IV DATA: Not applicable SIGNED BY: Cameron Vigil TECHNOLOGIST January 31, 2025 2:46 PM Normal [facility] CBC panel Auto (Bld)on 01-31 Erythrocyte distribution width (RBC) [Ratio] 13.7 % Normal 11.5-15.0 [facility] Comment on above: Order Comment: Speci men Type: BLOOD SPECIMENOrdering Facility: [facility] Address: [address] [place] [address] Performed By: #### 5 8410-2 ####[facility] [id number] [address] Hematocrit (Bld) [Volume fraction] 41.9 % Normal 39.0-51.0 [facility] Comment on above: Order Comment: Speci men Type: BLOOD SPECIMENOrdering Facility: [facility] Address: [address] [place] [address] Performed By: #### 5 8410-2 ####[facility] [id number] [address] Hemoglobin (Bld) [Mass/Vol] 14.2 g/dL Normal 13.0-17.0 [facility] Comment on above: Order Comment: Speci men Type: BLOOD SPECIMENOrdering Facility: [facility] Address: [address] [place] [address] Performed By: #### 5 8410-2 ####[facility] [id number] [address] MCH (RBC) [Entitic mass] 29.0 pg Normal 26.0-34.0 [facility] Comment on above: Order Comment: Speci men Type: BLOOD SPECIMENOrdering Facility: [facility] Address: [address] [place] [address] Performed By: #### 5 8410-2 ####[facility] [id number] [address] MCHC (RBC) [Mass/Vol] 33.9 g/dL Normal 30.5-36.0 [facility] Comment on above: Order Comment: Speci men Type: BLOOD SPECIMENOrdering Facility: [facility] Address: [address] [place] [address] Performed By: #### 5 8410-2 ####[facility] [id number] [address] MCV (RBC) [Entitic vol] 85.5 fL Normal 80.0-100.0 [facility] Comment on above: Order Comment: Speci men Type: BLOOD SPECIMENOrdering Facility: [facility] Address: [address] [place] [address] Performed By: #### 5 8410-2 ####[facility] [id number] [address] Nucleated RBC (Bld) [#/Vol] 10*3/uL Normal <0.01 [facility] Comment on above: Order Comment: Speci men Type: BLOOD SPECIMENOrdering Facility: [facility] Address: [address] [place] [address] Performed By: #### 5 8410-2 ####[facility] [id number] [address] [place] Platelet mean volume (Bld) [Entitic vol] 10.0 fL Normal 9.0-12.7 [facility] Comment on above: Order Comment: Speci men Type: BLOOD SPECIMENOrdering Facility: [facility] Address: [address] [place] [address] Performed By: #### 5 8410-2 ####[facility] [id number] [address] [place] Platelets (Bld) [#/Vol] 252 10*3/uL Normal 150-400 [facility] Comment on above: Order Comment: Speci men Type: BLOOD SPECIMENOrdering Facility: [facility] Address: [address] [place] [address] Performed By: #### 5 8410-2 ####[facility] [id number] [place] [address] [place] RBC (Bld) [#/Vol] 4.90 10*6/uL Normal 4.20-6.00 [facility] Comment on above: Order Comment: Speci men Type: BLOOD SPECIMENOrdering Facility: [facility] Address: [address] [place] [address] Performed By: #### 5 8410-2 ####[facility] [id number] [address] [place] WBC (Bld) [#/Vol] 7.12 10*3/uL Normal 3.70-11.00 [facility] Comment on above: Order Comment: Speci men Type: BLOOD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 LABORATORYCLIA [id number] [place] [address] [place] Anion gap [Moles/Vol] 12 mmol/L Normal 8-15 [facility] Comment on above: Order Comment: Speci men Type: BLOOD SPECIMENOrdering Facility: [facility] Address: [address] [place] [address] Performed By: #### 2 4362-6 ####B[facility] LABORATORYCLIA [id number] [place] [address] [place] Calcium [Mass/Vol] 8.4 mg/dL Low 8.5-10.2 [facility] Comment on above: Order Comment: Speci men Type: BLOOD SPECIMENOrdering Facility: [facility] Address: [address] [place] [address] Performed By: #### 2 4362-6 ####BLAK[facility] LABORATORYCLIA [id number] [place] [address] [place] Chloride [Moles/Vol] 102 mmol/L Normal 98-107 [facility] Comment on above: Order Comment: Speci men Type: BLOOD SPECIMENOrdering Facility: [facility] Address: [address] [place] [address] Performed By: #### 2 4362-6 ####B[facility] LABORATORYCLIA [id number] [place] [address] [place] CO2 [Moles/Vol] 22 mmol/L Normal 22-30 [facility] Comment on above: Order Comment: Rosario howard Type: BLOOD SPECIMENOrdering Facility: [facility] Address: [address] [place] [address] Performed By: #### 2 4362-6 ####B[facility] LABORATORYCLIA [id number] [address] STATES OF [facility] Creatinine [Mass/Vol] 0.47 mg/dL Low 0.73-1.22 [facility] Comment on above: Order Comment: Rosario howard Type: BLOOD SPECIMENOrdering Facility: [facility] Address: [address] [place] [address] Performed By: #### 2 4362-6 ####[facility] LABORATORYCLIA [id number] [address] [place] eGFRcr SerPlBld CKD-EPI 2020 136 mL/min/1.73m??? Normal >=60 [facility] Comment on above: Order Comment: Rosario howard Type: BLOOD SPECIMENOrdering Facility: [facility] Address: [address] [place] [address] Result Comment: Adele mated Glomerular Filtration Rate (eGFR) is calculated using the 2020 CKD-EPI creatinine equation. This equation utilizes serum creatinine, sex, and age as parameters. The creatinine assay has traceable calibration to isotope dilution-mass spectrometry. Refer to KDIGO guidelines for clinical interpretation. In patients with unstable renal function, e.g. those with acute kidney injury, the eGFR may not accurately reflect actual GFR. Performed By: #### 2 4362-6 ####[facility] LABORATORYCLIA [id number] [address] STATES OF [facility] Glucose [Mass/Vol] 103 mg/dL High 74-99 [facility] Comment on above: Order Comment: Rosario lawrence Type: BLOOD SPECIMENOrdering Facility: [facility] Address: [address] [place] [address] Result Comment: The [place] Diabetes Association (ADA) provides guidance for cutoff values for fasting glucose and random glucose. The ADA defines fasting as no caloric intake for at least 8 hours. Fasting plasma glucose results between 100 to 125 mg/dL indicate increased risk for diabetes (prediabetes). Fasting plasma glucose results greater than or equal to 126 mg/dL meet the criteria for diagnosis of diabetes. In the absence of unequivocal hyperglycemia, results should be confirmed by repeat testing. In a patient with classic symptoms of hyperglycemia or hyperglycemic crisis, random plasma glucose results greater than or equal to 200 mg/dL meet the criteria for diagnosis of diabetes. Reference: Standards of Medical Care in Diabetes 2016, [place] Diabetes [employer]. Diabetes Care. 2016.39(Suppl 1). Performed By: #### 2 4362-6 ####[facility] LABORATORYCLIA [id number] [place] [address] [place] Phosphate [Mass/Vol] 2.4 mg/dL Low 2.7-4.8 [facility] Comment on above: Order Comment: Rosario lawrence Type: BLOOD SPECIMENOrdering Facility: [facility] Address: [address] [place] [address] Performed By: #### 2 4362-6 ####[facility] LABORATORYCLIA [id number] [place] [address] [place] Potassium [Moles/Vol] 4.0 mmol/L Normal 3.7-5.1 [facility] Comment on above: Order Comment: Patti howard Type: BLOOD SPECIMENOrdering Facility: [facility] Address: [address] [place] [address] Performed By: #### 2 4362-6 ####[facility] LABORATORYCLIA [id number] [place] [address] [place] Sodium [Moles/Vol] 136 mmol/L Normal 136-144 [facility] Comment on above: Order Comment: Patti men Type: BLOOD SPECIMENOrdering Facility: [facility] Address: [address] [place] [address] Performed By: #### 2 4362-6 ####[facility] LABORATORYCLIA [id number] [place] [address] [place] Urea nitrogen [Mass/Vol] 6 mg/dL Low 9-24 [facility] Comment on above: Order Comment: Patti howard Type: BLOOD SPECIMENOrdering Facility: [facility] Address: [address] [place] [address] Performed By: #### 2 4362-6 ####[facility] LABORATORYCLIA [id number] [place] [id number] [place] ALLIED HEALTHon 01-28-2025 ALLIED HEALTH HNO ID: [id number] Author: SAM MERRILL CT Service: Radiology Author Type: Php Programmer Type: Allied Health Filed: 01/28/2025 14:21 Note Text: Radiology Service Progress Note PATIENT NAME: Nadeen Hobson DATE OF SERVICE: January 28, 2025 TIME: 2:20 PM PATIENT IDENTITY VERIFICATION COMPLETED USING TWO (2) IDENTIFIERS: Name and Date of confirmed by patient verbally. FALL SCREENING: Has the patient had 2 falls in the last year or 1 fall with injury or currently using an Ambulatory Assistive Device (Walker, Cane, Wheelchair, Crutches, etc.)? Emergency Room Patient: Screened in ED PATIENT GENDER DATA: Assigned male at PATIENT RELEVANT IMPLANT DATA REVIEWED: Not Applicable PATIENT PRESENTS WITH AN IMPLANTABLE OR ATTACHED SUPERVISOR PACKING ROOM: No RADIOLOGY DEPARTMENT: CT; Exam(s) Completed: Abdomen/Pelvis . Anesthesia: No PERIPHERAL IV DATA: Not applicable SIGNED BY: CHANDRIKA Schroeder January 28, 2025 2:20 PM Normal [facility] Bacteria Bld Culton 01-29-20 25 Bacteria identified Cx Nom (Bld) CULTURE, BLOOD: No growth 5 days Normal [facility] Comment on above: Performed By: #### 4 5066-8, 3094-0 #### [facility] CLIA [id number] [address] [place] [address] [facility] Bacteria identified Cx Nom (Bld) CULTURE, BLOOD: No growth 5 days Normal [facility] Comment on above: Performed By: #### 4 5066-8, 3094-0 #### [facility] CLIA [id number] [address] [place] [address] [facility] [place] Bacteria Ur Culton 5 Bacteria identified Cx Nom (U) ORGANISM ID: 1 >=100,000 CFU/ml Escherichia coli ORGANISM ID: 1 (ESCHERICHIA COLI) ------ ANTIBIOTIC INTERPRETATION JUAQUIN STATUS REFERENCE RANGE ------ Ampicillin I 16 F Susceptible <=8 , Intermediate >8 , Resistant >16 Cefazolin S 8 F Susceptible 0-16 , Intermediate <0 or >16 , Resistant >16 For uncomplicated urinary tract infections, cefazolin results can be used to predict susceptibility or resistance to cephalexin. Ceftriaxone S <=1 F Susceptible <=1 , Intermediate >1 , Resistant >=4 Cefepime S <=1 F Susceptible <=2 , Susceptible-Dose Dependent >2 , Resistant >=16 Ertapenem S <=0.25 F Susceptible <=0.5 , Intermediate >.5 , Resistant >1 Meropenem S <=0.5 F Susceptible <=1 , Intermediate >1 , Resistant >2 Aztreonam S <=2 F Susceptible <=4 , Intermediate >4 , Resistant >=16 Ampicillin/Sulbact I 16 F Piperacillin/Tazobac S <=2 F Gentamicin S <=2 F Susceptible <=2 , Intermediate >2 , Resistant >4 Tobramycin S <=2 F Susceptible <=2 , Intermediate >2 , Resistant >4 Trimeth sulfameth S <=0.5 F Ciprofloxacin I 0.5 F Susceptible <0.5 , Intermediate >=.5 , Resistant >=1 Nitrofurantoin S <=16 F Susceptible <=32 , Intermediate >32 , Resistant >64 Abnormal [facility] Comment on above: Performed By: #### 6 30-4 #### [facility] CLIA [id number] [address] [place] #### [address]-7 #### [facility] CLIA [id number] [address] [place] [address] [place] CBC W Auto Differential pane l (Bld)on 01-28-2025 Basophils (Bld) [#/Vol] 0.03 10*3/uL Normal <0.11 [facility] Comment on above: Order Comment: Speci men Type: BLOOD SPECIMEN Ordering Facility: [facility] Address: [address] [place] [address] Performed By: #### 5 7021-8 #### [facility] CLIA [id number] [address] [place] [address] [place] Basophils/100 WBC (Bld) 0.2 % Normal A [facility] Comment on above: Order Comment: Speci men Type: BLOOD SPECIMEN Ordering Facility: [facility] Address: [address] [place] [address] Performed By: #### 5 7021-8 #### [facility] CLIA [id number] [address] [place] [address] OF [facility] Differential cell count method Nom (Bld) Auto Normal [facility] Comment on above: Order Comment: Speci men Type: BLOOD SPECIMEN Ordering Facility: [facility] Address: [address] [place] [address] Performed By: #### 5 7021-8 #### [facility] CLIA [id number] [address] [place] [address] [place] Eosinophils (Bld) [#/Vol] 10*3/uL Normal <0.46 [facility] Comment on above: Order Comment: Speci men Type: BLOOD SPECIMEN Ordering Facility: [facility] Address: [address] [place] [address] Performed By: #### 5 7021-8 #### [facility] CLIA [id number] [address] [place] [id number] [facility] [place] Eosinophils/100 WBC (Bld) 0.1 % Normal [facility] Comment on above: Order Comment: Speci men Type: BLOOD SPECIMEN Ordering Facility: [facility] Address: [address] [place] [address] Performed By: #### 5 7021-8 #### [facility] CLIA [id number] [address] [place] [address] [place] Erythrocyte distribution width (RBC) [Ratio] 13.9 % Normal 11.5-15.0 [facility] Comment on above: Order Comment: Speci men Type: BLOOD SPECIMEN Ordering Facility: [facility] Address: [address] [place] [address] Performed By: #### 5 7021-8 #### [facility] CLIA [id number] [address] [place] [address] [place] Hematocrit (Bld) [Volume fraction] 48.1 % Normal 39.0-51.0 [facility] Comment on above: Order Comment: Speci men Type: BLOOD SPECIMEN Ordering Facility: [facility] Address: [address] [place] [address] Performed By: #### 5 7021-8 #### [facility] CLIA [id number] [address] [place] [address] [place] Hemoglobin (Bld) [Mass/Vol] 16.4 g/dL Normal 13.0-17.0 [facility] Comment on above: Order Comment: Speci men Type: BLOOD SPECIMEN Ordering Facility: [facility] Address: [address] [place] [address] Performed By: #### 5 7021-8 #### [facility] CLIA [id number] [address] [place] [address] [place] Immature granulocytes (Bld) [#/Vol] 10*3/uL Normal <0.10 [facility] Comment on above: Order Comment: Speci men Type: BLOOD SPECIMEN Ordering Facility: [facility] Address: [address] [place] [address] Performed By: #### 5 7021-8 #### [facility] CLIA [id number] [address] [place] [address] [place] Immature granulocytes/100 WBC (Bld) 0.1 % Normal [facility] Comment on above: Order Comment: Speci men Type: BLOOD SPECIMEN Ordering Facility: [facility] Address: [address] [place] [address] Performed By: #### 5 7021-8 #### [facility] CLIA [id number] [address] [place] [address] [place] Lymphocytes (Bld) [#/Vol] 0.79 10*3/uL Low 1.00-4.00 [facility] Comment on above: Order Comment: Speci men Type: BLOOD SPECIMEN Ordering Facility: [facility] Address: [address] [place] [address] Performed By: #### 5 7021-8 #### [facility] CLIA [id number] [address] [place] [address] [facility] [place] Lymphocytes/100 WBC (Bld) 5.5 % Normal [facility] Comment on above: Order Comment: Speci men Type: BLOOD SPECIMEN Ordering Facility: [facility] Address: [address] [place] [address] Performed By: #### 5 7021-8 #### [facility] CLIA [id number] [address] [place], [place] [address] [place] [address] [place] MCH (RBC) [Entitic mass] 29.0 pg Normal 26.0-34.0 [facility] Comment on above: Order Comment: Speci men Type: BLOOD SPECIMEN Ordering Facility: [facility] Address: [address] [place] [address] Performed By: #### 5 7021-8 #### [facility] CLIA [id number] [address] [place] [address] [place] MCHC (RBC) [Mass/Vol] 34.1 g/dL Normal 30.5-36.0 [facility] Comment on above: Order Comment: Speci men Type: BLOOD SPECIMEN Ordering Facility: [facility] Address: [address] [place] [address] Performed By: #### 5 7021-8 #### [facility] CLIA [id number] [address] [place] [address] [place] MCV (RBC) [Entitic vol] 85.1 fL Normal 80.0-100.[address] [facility] Comment on above: Order Comment: Speci men Type: BLOOD SPECIMEN Ordering Facility: [facility] Address: [address] [place] [address] Performed By: #### 5 7021-8 #### [facility] CLIA [id number] [address] [place] [address] [place] Monocytes (Bld) [#/Vol] 0.70 10*3/uL Normal <0.87 [facility] Comment on above: Order Comment: Speci men Type: BLOOD SPECIMEN Ordering Facility: [facility] Address: [address] [place] [address] Performed By: #### 5 7021-8 #### [facility] CLIA [id number] [address] [place] Monocytes/100 WBC (Bld) 4.9 % Normal A [facility] Comment on above: Order Comment: Speci men Type: BLOOD SPECIMEN Ordering Facility: [facility] Address: [address] [place] [address] Performed By: #### 5 7021-8 #### [facility] CLIA [id number] [address] [place] [address] [place] Neutrophils (Bld) [#/Vol] 12.71 10*3/uL High 1.45-7.50 [facility] Comment on above: Order Comment: Speci men Type: BLOOD SPECIMEN Ordering Facility: [facility] Address: [address] [place] [address] Performed By: #### 5 7021-8 #### [facility] CLIA [id number] [address] [place] [address] [facility] [place] Neutrophils/100 WBC (Bld) 89.2 % Normal [facility] Comment on above: Order Comment: Speci men Type: BLOOD SPECIMEN Ordering Facility: [facility] Address: [address] [place], [place] [id number] Performed By: #### 5 7021-8 #### [facility] CLIA [id number] [address] [place] [address] [place] Nucleated RBC (Bld) [#/Vol] Normal [facility] Comment on above: Order Comment: Speci men Type: BLOOD SPECIMEN Ordering Facility: [facility] Address: [address] [place] [address] Performed By: #### 5 7021-8 #### [facility] CLIA [id number] [address] [place] [address] [place] Nucleated RBC/100 WBC (Bld) [Ratio] Normal [facility] Comment on above: Order Comment: Speci men Type: BLOOD SPECIMEN Ordering Facility: [facility] Address: [address] [place] [address] Performed By: #### 5 7021-8 #### [facility] CLIA [id number] [address] [place] [address] [place] Platelet mean volume (Bld) [Entitic vol] 10.0 fL Normal 9.0-12.7 [facility] Comment on above: Order Comment: Speci men Type: BLOOD SPECIMEN Ordering Facility: [facility] Address: [address] [place] [address] Performed By: #### 5 7021-8 #### [facility] CLIA [id number] [address] [place] [address] [place] Platelets (Bld) [#/Vol] 252 10*3/uL Normal 150-400 [facility] Comment on above: Order Comment: Speci men Type: BLOOD SPECIMEN Ordering Facility: [facility] Address: [address] [place] [address] Performed By: #### 5 7021-8 #### [facility] CLIA [id number] [address] [place] [address] [place] RBC (Bld) [#/Vol] 5.65 10*6/uL Normal 4.20-6.00 [facility] Comment on above: Order Comment: Speci men Type: BLOOD SPECIMEN Ordering Facility: [facility] Address: [address] [place] [address] Performed By: #### 5 7021-8 #### [facility] CLIA [id number] [address] [place] [address] [place] WBC (Bld) [#/Vol] 14.27 10*3/uL High 3.70-11.00 [facility] Comment on above: Order Comment: Speci men Type: BLOOD SPECIMEN Ordering Facility: [facility] Address: [address] [place] [address] Performed By: #### 5 7021-8 #### [facility] CLIA [id number] [address] [place] [address] [place] [facility] CRP [Mass/Vol] 13.7 mg/dL High <0.9 [facility] Comment on above: Order Comment: Speci men Type: BLOOD SPECIMENOrdering Facility: [facility] Address: [address] [place] [address] Performed By: #### 1 988-5 ####[facility] [id number] [place] [address] [place] ABD/PEL WO IVCONon 2024 CT ABD/PEL WO IVCON * * *Final Report* * * DATE OF EXAM: Jan 28 2025 2:20PM [facility] 0531 - CT ABD/PEL WO IVCON / PROCEDURE REASON: lower abdominal pain, urinary symptoms/recent UTIs * * * * Physician Interpretation * * * * EXAMINATION: CT ABDOMEN AND PELVIS WITHOUT IV CONTRAST CLINICAL HISTORY: Difficulty urinating; abdominal pain; paraplegia TECHNIQUE: Non-IV contrast imaging of the abdomen and pelvis was performed using standard technique, scanning from just above the dome of the diaphragm to the symphysis pubis. Unenhanced imaging is limited for the evaluation of some intra-abdominal and pelvic pathology. MQ: CTAPWO_3 Contrast: IV: None : ml of CT Radiation dose: Integrated Dose-length product (DLP) for this visit = 537.42 mGy*cm. CT Dose Reduction Employed: Automated exposure control(AEC) and iterative recon COMPARISON: CT abdomen 12/02/2010 RESULT: Abdomen / Pelvis: Liver: Unremarkable. Biliary: Multiple stones within the gallbladder. No evidence of distention. No biliary ductal dilatation. Spleen: Spleen appears mildly enlarged, however similar compared to 2011. Pancreas: Unremarkable. Adrenals: No mass. Kidneys: Right kidney contains a punctate nonobstructing calculus. Right ureter is nondilated. The left kidney and ureter are unremarkable. No hydronephrosis. GI Tract: Stomach is unremarkable. No small bowel dilatation. There is mild distal colonic diverticulosis. Mildly increased stool within the right colon. Appendix appears normal. Lymph Nodes: No lymphadenopathy. Mesentery/peritoneum: No ascites. Retroperitoneum: No mass. Vasculature: No aortic aneurysm. Pelvis: Urinary bladder is collapsed. No specific abnormality. No evidence of a urinary bladder calculus. Bones/Soft Tissues: Posterior surgical fixation T11-L2. There is a mild compression fracture of L1, remote. There is soft tissue induration superficial to the ischial tuberosities bilaterally. These may represent some degree of decubitus ulcer. There is some mild sclerosis of the left ischial tuberosity without obvious osseous destructive change. This may represent a remote or chronic osteomyelitis. Correlate with clinical symptoms. Lower thorax: Unremarkable. Localizer images: IMPRESSION: 1. Punctate nonobstructive right renal calculus. No hydronephrosis or other specific urinary abnormality is seen. 2. There are soft tissue indurations extending from the skin surface to the ischial tuberosities bilaterally. There is some mild sclerosis of the left ischial tuberosity. This is a nonspecific finding, however in the appropriate clinical setting could represent a chronic or remote osteomyelitis. Further evaluation as clinical symptoms warrant. 3. Cholelithiasis 4. Mild splenomegaly, similar compared to 2011 5. Increased right colonic stool. This may represent constipation. Golf Course Superintendent: PSCB Transcribe Date/Time: Jan 28 2025 2:44P Dictated by : APRIL CONNORS MD This examination was interpreted and the report reviewed and electronically signed by: APRIL CONNORS MD on Jan 28 2025 2:55PM EST [id number] N Normal [facility] Comprehensive metabolic 2000 panelon 10-06-2025 Albumin [Mass/Vol] 4.5 g/dL Normal 3.9-4.9 [facility] Comment on above: Order Comment: Speci men Type: BLOOD SPECIMEN [facility] Address: [address] [place] [address], [place] [address] Performed By: #### 4 5066-8, 3094-0 #### [facility] CLIA [id number] [address] [place] [address] [place] [facility] ALP [Catalytic activity/Vol] 77 U/L Normal 38-113 [facility] Comment on above: Order Comment: Speci men Type: BLOOD SPECIMEN [facility]ing Facility: [facility] Address: [address] [place] [address], [place] [id number] Performed By: #### 4 5066-8, 3094-0 #### [facility] CLIA [id number] [address] [place] [address] [place] [facility] ALT With P-5'-P [Catalytic activity/Vol] 22 U/L Normal 10-54 [facility] Comment on above: Order Comment: Speci men Type: BLOOD SPECIMEN Ordering Facility: [facility] Address: [address] [place] [address], [place] [address] Performed By: #### 4 5066-8, 3094-0 #### [facility] CLIA [id number] [address] [place] [address] [place] [facility] Anion gap [Moles/Vol] 16 mmol/L High 8-15 [facility] Comment on above: Order Comment: Speci men Type: BLOOD SPECIMEN [facility] Facility[facility] Address: [address] [place] [address], [place] [address] Performed By: #### 4 5066-8, 3094-0 #### [facility] CLIA [id number] [address] [place] [address] [place] AST With P-5'-P [Catalytic activity/Vol] 20 U/L Normal 14-40 [facility] Comment on above: Order Comment: Speci men Type: BLOOD SPECIMEN [facility] Facility[facility] Address: [address] [place] [address], [place] [address] Performed By: #### 4 5066-8, 3094-0 #### [facility] CLIA [id number] [address] [place] [address] [place] Bilirubin [Mass/Vol] 1.0 mg/dL Normal 0.2-1.3 [facility] Comment on above: Order Comment: Speci men Type: BLOOD SPECIMEN [facility] Address: [address] [place] [address], [place] [id number] Performed By: #### 4 5066-8, 3094-0 #### [facility] CLIA [id number] [address] [place] [address] [place] Calcium [Mass/Vol] 9.4 mg/dL Normal 8.5-10.2 [facility] Comment on above: Order Comment: Speci men Type: BLOOD SPECIMEN [facility]ing Facility[facility] Address: [address] [place] [address], [place] [address] Performed By: #### 4 5066-8, 3094-0 #### [facility] CLIA [id number] [address] [place] [address] [place] Chloride [Moles/Vol] 96 mmol/L Low 98-107 [facility] Comment on above: Order Comment: Speci men Type: BLOOD SPECIMEN [facility] Facility[facility] Address: [address] [place] [address], [place] [address] Performed By: #### 4 5066-8, 3094-0 #### [facility] CLIA [id number] [address] [place] [address] [place] CO2 [Moles/Vol] 22 mmol/L Normal 22-30 [facility] Comment on above: Order Comment: Speci men Type: BLOOD SPECIMEN [facility] Address: [address] [place] [address], [place] [address] Performed By: #### 4 5066-8, 3094-0 #### [facility] CLIA [id number] [address] [place] [address] [place] Creatinine [Mass/Vol] 0.56 mg/dL Low 0.73-1.22 [facility] Comment on above: Order Comment: Rosario lawrence Type: BLOOD SPECIMEN Ordering Facility: [facility] Address: [address] [place] [address], [place] [address] Performed By: #### 4 5066-8, 3094-0 #### [facility] CLIA [id number] [address] [place] [address] [place] eGFRcr SerPlBld CKD-EPI 2020 129 mL/min/1.73m??? Normal >=60 [facility] Comment on above: Order Comment: Rosario lawrence Type: BLOOD SPECIMEN Ordering Facility: [facility] Address: [address] [place] [address], [place] [address] Result Comment: Adele mated Glomerular Filtration Rate (eGFR) is calculated using the 2020 CKD-EPI creatinine equation. This equation utilizes serum creatinine, sex, and age as parameters. The creatinine assay has traceable calibration to isotope dilution-mass spectrometry. Refer to KDIGO guidelines for clinical interpretation. In patients with unstable renal function, e.g. those with acute kidney injury, the eGFR may not accurately reflect actual GFR. Performed By: #### 4 5066-8, 3094-0 #### [facility] CLIA [id number] [address] [place] [address] [place] Glucose [Mass/Vol] 86 mg/dL Normal 74-99 [facility] Comment on above: Order Comment: Rosario lawrence Type: BLOOD SPECIMEN Ordering Facility: [facility] Address: [address] [place] [address], [place] [address] Result Comment: The [place] Diabetes Association (ADA) provides guidance for cutoff values for fasting glucose and random glucose. The ADA defines fasting as no caloric intake for at least 8 hours. Fasting plasma glucose results between 100 to 125 mg/dL indicate increased risk for diabetes (prediabetes). Fasting plasma glucose results greater than or equal to 126 mg/dL meet the criteria for diagnosis of diabetes. In the absence of unequivocal hyperglycemia, results should be confirmed by repeat testing. In a patient with classic symptoms of hyperglycemia or hyperglycemic crisis, random plasma glucose results greater than or equal to 200 mg/dL meet the criteria for diagnosis of diabetes. Reference: Standards of Medical Care in Diabetes 2016, [place] [employer] Association. Diabetes Care. 2016.39(Suppl 1). Performed By: #### 4 5066-8, 3094-0 #### [facility] CLIA [id number] [address] [place] [address] [place] Potassium [Moles/Vol] 3.8 mmol/L Normal 3.7-5.1 [facility] Comment on above: Order Comment: Rosario lawrence Type: BLOOD SPECIMEN [facility] Address: [address] [place] [address], [place] [id number] Performed By: #### 4 5066-8, 3094-0 #### [facility] CLIA [id number] [address] [place] [address] [place] Protein [Mass/Vol] 8.1 g/dL High 6.3-8.0 [facility] Comment on above: Order Comment: Rosario lawrence Type: BLOOD SPECIMEN [facility] Address: [address] [place] [address], [place] [address] Performed By: #### 4 5066-8, 3094-0 #### [facility] CLIA [id number] [address] [place] [address] [place] Sodium [Moles/Vol] 134 mmol/L Low 136-144 [facility] Comment on above: Order Comment: Rosario lawrence Type: BLOOD SPECIMEN [facility] Address: [address] [place] [address], [place] [address] Performed By: #### 4 5066-8, 3094-0 #### [facility] CLIA [id number] [address] [place] [address] [place] Urea nitrogen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 {ratio} Normal 0.9-2.4 [facility] Comment on above: Order Comment: Order Date: 01/11/25 Order Info: 0786-1 - CMP Performed By: #### L 501.9985, L100.0100, L500.4050 #### [facility] [address] [place], [address] ALK PHOS 62 U/L Normal 40-129 [facility] Comment on above: Order Comment: Order Date: 01/11/25 Order Info: 0786-1 - CMP Performed By: #### L 501.9985, L100.0100, L500.4050 #### [facility] [address] [place], [address] ALT [Catalytic activity/Vol] 24 U/L Normal <=46 [facility] Comment on above: Order Comment: Order Date: 01/11/25 Order Info: 0786-1 - CMP Performed By: #### L 501.9985, L100.0100, L500.4050 #### [facility] [address] [place], [address] AST [Catalytic activity/Vol] 21 U/L Normal <=37 [facility] Comment on above: Order Comment: Order Date: 01/11/25 Order Info: 0786-1 - CMP Performed By: #### L 501.9985, L100.0100, L500.4050 #### [facility] [address] [place], [address] Bilirubin [Mass/Vol] 0.60 mg/dL Normal 0.00-1.30 [facility] Comment on above: Order Comment: Order Date: 01/11/25 Order Info: 0786-1 - CMP Performed By: #### L 501.9985, L100.0100, L500.4050 #### [facility] [address] [place], [address] BUN/CRE 24.3 RATIO High 10-20 [facility] Comment on above: Order Comment: Order Date: 01/11/25 Order Info: 0786-1 - CMP Performed By: #### L 501.9985, L100.0100, L500.4050 #### [facility] [address] [place], [address] Calcium [Mass/Vol] 9.5 mg/dL Normal 7.6-11.0 [facility] Comment on above: Order Comment: Order Date: 01/11/25 Order Info: 0786-1 - CMP Performed By: #### L 501.9985, L100.0100, L500.4050 #### [facility] [address] [place], [address] Chloride [Moles/Vol] 105 mmol/L Normal 98-108 [facility] Comment on above: Order Comment: Order Date: 01/11/25 Order Info: 0786-1 - CMP Performed By: #### L 501.9985, L100.0100, L500.4050 #### [facility] [address] [place], [address] CO2 [Moles/Vol] 22.8 mmol/L Normal 21.0-32.0 [facility] Comment on above: Order Comment: Order Date: 01/11/25 Order Info: 0786-1 - CMP Performed By: #### L 501.9985, L100.0100, L500.4050 #### [facility] [address] [place], [address] Creatinine [Mass/Vol] 0.42 mg/dL Low 0.70-1.20 [facility] Comment on above: Order Comment: Order Date: 01/11/25 Order Info: 0786-1 - CMP Performed By: #### L 501.9985, L100.0100, L500.4050 #### [facility] [address] [place], [address] GAP 13 Normal 5-15 [facility] Comment on above: Order Comment: Order Date: 01/11/25 Order Info: 0786-1 - CMP Performed By: #### L 501.9985, L100.0100, L500.4050 #### [facility] [address] [place], [address] GFR/1.73 sq M.predicted among non-blacks MDRD (S/P/Bld) [Vol rate/Area] 140 mL/min/{1.73_m2} Normal >60 [facility] Comment on above: Order Comment: Order Date: 01/11/25 Order Info: 0786-1 - CMP Result Comment: mL/m in/1.73m2 CKD-EPI Creatinine Equation (2020) Performed By: #### L 501.9985, L100.0100, L500.4050 #### [facility] [address] [place], [address] Globulin (S) [Mass/Vol] 3.1 g/dL Normal 2.2-4.2 [facility] Comment on above: Order Comment: Order Date: 01/11/25 Order Info: 0786-1 - CMP Performed By: #### L 501.9985, L100.0100, L500.4050 #### [facility] [address] [place], [address] Glucose [Mass/Vol] 88 mg/dL Normal 70-99 [facility] Comment on above: Order Comment: Order Date: 01/11/25 Order Info: 0786-1 - CMP Performed By: #### L 501.9985, L100.0100, L500.4050 #### [facility] [address] [place], [address] Potassium [Moles/Vol] 4.3 mmol/L Normal 3.3-5.1 [facility] Comment on above: Order Comment: Order Date: 01/11/25 Order Info: 0786-1 - CMP Performed By: #### L 501.9985, L100.0100, L500.4050 #### [facility] [address] [place], [address] Sodium [Moles/Vol] 142 mmol/L Normal 133-145 [facility] Comment on above: Order Comment: Order Date: 01/11/25 Order Info: 0786-1 - CMP Performed By: #### L 501.9985, L100.0100, L500.4050 #### [facility] [address] [place], [place], [address] T PROT 7.6 g/dL Normal 5.9-8.4 [facility] Comment on above: Order Comment: Order Date: 01/11/25 Order Info: 0786-1 - CMP Performed By: #### L 501.9985, L100.0100, L500.4050 #### [facility] [address] [place], [address] Urea nitrogen [Mass/Vol] 10 mg/dL Normal 4- [facility] Comment on above: Order Comment: Order Date: 01/11/25 Order Info: 0786-1 - CMP Performed By: #### L 501.9985, L100.0100, L500.4050 #### [facility] [address] [place], [address] Eosinophil percentageOrdered By: Javed Pacheco on 01-11-2025 Eosinophils/100 WBC (Bld) 1.1 % 0-5 [facility] Erythrocyte distribution wid th ratioOrdered By: Javed Pacheco on 01-11-2025 Erythrocyte distribution width (RBC) [Ratio] 13.7 % 11.6-14.6 [facility] Erythrocyte distribution wid th standard deviationOrdered By: Javed Pacheco on 01-11-2025 Erythrocyte distribution width (RBC) [Ratio] 41.9 fl 35.1-43.9 [facility] Glomerular filtration rate ( GFR) estimation/1.73 sq m using serum, plasma, or whole bOrdered By: Javed Pacheco on 01-11-2025 GFR/1.73 sq M.predicted among non-blacks MDRD (S/P/Bld) [Vol rate/Area] 140 mL/min/{1.73_m2} >60 [facility] Comment on above: mL/min/1.73m2 CKD-EP I Creatinine Equation (2020) Hematocrit Auto (Bld) [Volum e fraction]Ordered By: Javed Pacheco on 01-11-2025 Hematocrit (Bld) [Volume fraction] 46.3 % 40-54 [facility] Hemoglobin A1con 01-11-2025 HbA1c (Bld) [Mass fraction] 4.6 % Normal <=5.6 [facility] Comment on above: Order Comment: Order Date: 01/11/25 Order Info: 4548-4 - A1C Result Comment: Norm al < 5.7 % Prediabetic 5.7 - 6.4 % Diabetic >or= 6.5 % Please note range changes. Performed By: #### L 501.9985, L100.0100, L500.4050 #### [facility] [address] [place], [address] Hemoglobin A1c percentageOrd ered By: Javed Pacheco on 01-11-2025 HbA1c (Bld) [Mass fraction] 4.6 % <5.7 [facility] Comment on above: Normal < 5.7 % Predi abetic 5.7 - 6.4 % Diabetic >or= 6.5 % Please note range changes. Hemoglobin measurementOrdere d By: Javed Pacheco on 01-11-2025 Hemoglobin (Bld) [Mass/Vol] 15.9 g/dL 13.0-16.5 [facility] Immature granulocytes/100 WB C Auto (Bld)Ordered By: Javed Pacheco on 01-11-2025 Immature granulocytes/100 WBC (Bld) 0.300 % 0.0-0.9 [facility] Comment on above: IG% - Immature Granu locytes (promyelocytes, myelocytes and metamyelocytes) > 1% indicates that a LEFT SHIFT is Present. Laboratory - Chemistry and C hemistry - challengeOrdered By: Javed Pacheco on 01-11-2025 AST [Catalytic activity/Vol] 21 U/L <38 [facility] MCV (mean corpuscular volume ) determinationOrdered By: Javed Pacheco on 01-11-2025 MCV (RBC) [Entitic vol] 84.3 fL 80-94 [facility] Mean corpuscular hemoglobin (MCH) determinationOrdered By: Javed Pacheco on 01-11-2025 MCH (RBC) [Entitic mass] 29.0 pg 27.0-32.0 [facility] Mean corpuscular hemoglobin concentration (MCHC) determinationOrdered By: Javed Pacheco on 01-11-2025 MCHC (RBC) [Mass/Vol] 34.3 g/dL 32-36 [facility] Mean platelet volume determi nationOrdered By: Javed Pacheco on 01-11-2025 Platelet mean volume (Bld) [Entitic vol] 10.7 fL 6.2-12.0 [facility] Monocyte percentageOrdered B y: Javed Pacheco on 01-11-2025 Monocytes/100 WBC (Bld) 7.5 % 0-10 [facility] Neutrophil percentageOrdered By: Javed Pacheco on 01-11-2025 Neutrophils/100 WBC (Bld) 71.3 % High 47-70 [facility] Nucleated red blood cell per centageOrdered By: Javed Pacheco on 01-11-2025 Nucleated RBC/100 WBC (Bld) [Ratio] 0 % 0-5 [facility] Platelet countOrdered By: Bola Pacheco on 01-11-2025 Platelets (Bld) [#/Vol] 297 10*3/uL 150-450 [facility] Potassium measurement (mass/ volume)Ordered By: Javed Pacheco on 01-11-2025 Potassium (Unsp spec) [Mass/Vol] 4.3 mmol/L 3.3-5.1 [facility] RBC Auto (Bld) [#/Vol]Ordere d By: Javed Pacheco on 01-11-2025 RBC (Bld) [#/Vol] 5.49 10*6/uL 4.6-6.2 [facility] Serum creatinine measurement (mass/volume)Ordered By: Javed Pacheco on 01-11-2025 Creatinine [Mass/Vol] 0.42 mg/dL Low 0.70-1.20 [facility] Serum globulin measurementOr dered By: Javed Pacheco on 01-11-2025 Globulin (S) [Mass/Vol] 3.1 g/dL 2.2-4.2 [facility] Serum glucose measurement (m ass/volume)Ordered By: Javed Pacheco on 01-11-2025 Glucose [Mass/Vol] 88 mg/dL 70-99 [facility] Serum or plasma alanine roach otransferase (ALT) measurementOrdered By: Javed Pacheco on 01-11-2025 ALT [Catalytic activity/Vol] 24 U/L <47 [facility] Serum or plasma albumin yemi urement (mass/volume)Ordered By: Javed Pacheco on 01-11-2025 Albumin [Mass/Vol] 4.5 g/dL 3.5-5.0 [facility] Serum or plasma albumin/glob ulin mass ratioOrdered By: Javed Pacheco on 01-11-2025 Albumin/Globulin [Mass ratio] 1.4 {ratio} 0.9-2.4 [facility] Serum or plasma alkaline demian sphatase measurementOrdered By: Javed Pacheco on 01-11-2025 ALP [Catalytic activity/Vol] 62 U/L 40-129 [facility] Serum or plasma calcium yemi urement (mass/volume)Ordered By: Javed Pacheco on 01-11-2025 Calcium [Mass/Vol] 9.5 mg/dL 7.6-11.0 [facility] Serum or plasma urea nitroge n measurement (mass/volume)Ordered By: Javed Pacheco on 01-11-2025 Urea nitrogen [Mass/Vol] 10 mg/dL 4-19 [facility] Sodium levelOrdered By: Javed Pacheco on 01-11-2025 Sodium [Moles/Vol] 142 mmol/L 133-145 [facility] Total proteinOrdered By: Lorena Pacheco on 01-11-2025 Protein [Mass/Vol] 7.6 g/dL 5.9-8.4 [facility] White blood cell (WBC) count Ordered By: Javed Pacheco on 01-11-2025 WBC (Bld) [#/Vol] 10.2 10*3/uL 4.4-11.0 [facility] Bacteria Ur Culton Bacteria identified Cx Nom (U) ORGANISM ID: 1 >=100,000 CFU/ml Escherichia coli ORGANISM ID: 2 5,000 - <10,000 CFU/ml Streptococcus anginosus No susceptibility testing done. ORGANISM ID: 1 (ESCHERICHIA COLI) ------ ANTIBIOTIC INTERPRETATION JUAQUIN STATUS REFERENCE RANGE ------ Ampicillin S 8 F Susceptible <=8 , Intermediate >8 , Resistant >16 Cefazolin S <=4 F Susceptible 0-16 , Intermediate <0 or >16 , Resistant >16 For uncomplicated urinary tract infections, cefazolin results can be used to predict susceptibility or resistance to cephalexin. Ceftriaxone S <=1 F Susceptible <=1 , Intermediate >1 , Resistant >=4 Cefepime S <=1 F Susceptible <=2 , Susceptible-Dose Dependent >2 , Resistant >=16 Ertapenem S <=0.5 F Susceptible <=0.5 , Intermediate >.5 , Resistant >1 Meropenem S <=0.25 F Susceptible <=1 , Intermediate >1 , Resistant >2 Ampicillin/Sulbact S 4 F Susceptible <=8 , Intermediate >8 , Resistant >16 Piperacillin/Tazobac S <=4 F Susceptible <16 , Susceptible-Dose Dependent >=16 , Resistant >=32 Gentamicin S <=1 F Susceptible <=2 , Intermediate >2 , Resistant >=8 Tobramycin S <=1 F Susceptible <4 , Intermediate >=4 , Resistant >=8 Trimeth sulfameth S <=20 F Susceptible <=40 , Resistant >40 Ciprofloxacin S <=0.25 F Susceptible <0.5 , Intermediate >=.5 , Resistant >=1 Nitrofurantoin S <=16 F Susceptible <=32 , Intermediate >32 , Resistant >64 Abnormal [facility] Comment on above: Performed By: #### 6 30-4 ####[facility] [id number] [address] [place] OF [facility] CNOVon 12-18-2024 CNOV Office Visit ([place] ) NADEEN HOBSON ([id number]) 1985 M Date Time Provider Department 12/18/24 3:20 PM ARMANDO NAYAK During your visit today, we recorded the following information about you: Temperature Pulse Respiration Blood pressure 98.4 degrees 111/minute 18/minute 127/84 Weight Height 82.6 kg 1.778 m Armando Nayak APRN.CNP 12/18/2024 3:39 PM Signed -Increase fluids. Focus on clears. -Decrease sugary drink intake. Minimize caffeine. -Wipe front to back. No tight clothing. No bubble baths. -Results will be released to [facility] unless there is a need for a change in medication. -If no improvement in 3-5 days please be re-seen. -Be seen immediately or go to the ER with worsening/warning symptoms. Warning symptoms include: chills, severe flank pain, severe abdominal/pelvic pain, fevers 101 or higher, chest pain, and respiratory distress. Certain foods and beverages might irritate your bladder, including: Coffee, tea and carbonated drinks, even without caffeine. Alcohol. Certain acidic fruits -- oranges, grapefruits, judy and limes -- and fruit juices. Spicy foods. Tomato-based products. Carbonated drinks. Chocolate. Armando Nayak APRN.CNP 12/18/2024 3:48 PM Signed [facility] Subjective The patient is a 39-year-old male presenting for evaluation of acute dysuria, urinary frequency, and new-onset flank pain in the setting of a suspected urinary tract infection. HPI The patient is a 39-year-old male with a history of recurrent UTIs, presenting with dysuria, urinary frequency, back pain, and fatigue. Recurrent UTIs: - Onset of symptoms approximately one week ago. - Reports dysuria, urinary frequency, and urinary incontinence. - Recent onset of back pain, fatigue, and fever with chills. - Last UTI treated with Macrobid, which patient felt was ineffective. - Previous urine cultures showed susceptibility to all antibiotics. - Self-catheterizes; previous physician recommended longer antibiotic courses (10-14 days) due to frequent UTIs. Review of Systems Constitutional: (+) fatigue, (-) fever, (-) chills Genitourinary: (+) bladder pain, (+) urinary frequency, (+) urinary incontinence Musculoskeletal: (+) back pain Objective BP 127/84 (BP Site: Right Arm, BP Position: Sitting, BP Cuff Size: Regular Adult) Pulse 111 Temp 36.9 ?C (98.4 ?F) (Right Tympanic) Resp 18 Ht 177.8 cm (5' 10) Wt 82.6 kg (182 lb) SpO2 95% BMI 26.11 kg/m? Physical Exam General: No acute distress. MDM 1. Bladder spasm (N32.89) 2. Urinary incontinence, unspecified type (R32) - Acute urinary symptoms with back pain, fever, and chills suggest possible progression to pyelonephritis. - Previous urine cultures have consistently shown E. coli susceptible to all tested antibiotics. - Start Keflex for 14 days; may stop after 10 days if significant improvement by day 7. - Avoid Bactrim due to interaction with Cozaar and risk of hypokalemia; avoid Cipro due to black box warning. - Advised to avoid caffeine (except 1 per day), carbonation, alcohol, spicy foods, and citrus until symptoms resolve; increase water intake and self-catheterize one additional time daily to ensure complete bladder emptying. - Instructed to go to the ER if back pain, fever, or chills worsen, as IV antibiotics may be necessary for suspected kidney infection. - Fill and take the Cephalexin (Keflex) prescription from [facility] for your urinary tract infection. Plan for 14 days of antibiotics, but if you?re feeling better by day 7, you may stop after a minimum of 10 days. - Limit bladder irritants until your symptoms improve: have no more than one caffeinated drink per day and avoid all other caffeine, carbonated drinks, alcohol, spicy foods, and citrus. - Drink plenty of water throughout the day to help flush your bladder. - Use the bathroom one extra time each day (one more trip than usual) to keep your bladder as empty as possible. - If you develop worsening back pain, fever, chills, or other signs of infection spreading, go to the emergency department right away, as you may need IV antibiotics. Medical Decision Making: Problems: Moderate: New problem with uncertain prognosis Data: Unique test result(s) reviewed: 2 Unique test(s) ordered: 2 Risk: Moderate: Drug management Medical Decision Making Level: 4 - Moderate Procedures Allergies As of Date: 12/18/2024 Noted Allergy Reaction TRULICITY (DULAGLUTIDE) 10/25/2023 8 - GI Upset 14 - Other: See Comments Comments: Abdominal pain, bloating BEES 06/17/2006 7 - Swelling Comments: As a child - has been stung since with no anaphylactic reaction, does not carry an epi-pen OZEMPIC (SEMAGLUTIDE) 10/25/2023 8 - GI Upset Comments: Fatigue, nausea Date Reviewed: 12/18/2024 Reviewed by: Rc Barron MA - Fully Assessed Syl (more content not included)... Normal [facility] UA DIP, URINE (POC)on 2024 BILIRUBIN UA (POCT) Negative Negative [facility] CLARITY UA (POCT) Clear [facility] COLOR UA (POCT) Yellow [facility] GLUCOSE UA (POCT) Negative Negative mg/dL [facility] Hemoglobin Ql (U) Negative Negative [facility] Interpretation and review of laboratory results Abnormal [facility] KETONE UA (POCT) Negative Negative mg/dL [facility] LEUKOCYTES UA (POCT) Small Abnormal Negative [facility] NITRITE UA (POCT) Negative Negative [facility] PH UA (POCT) 5.5 4.5 - 8.0 [facility] Protein Ql (U) Negative Negative mg/dL [facility] SPECIFIC GRAVITY UA (POCT) 1.020 1.005 - 1.030 [facility] UROBILINOGEN UA (POCT) 0.2 Jennifer l E.U./dL [facility] Location:[facility], [address] [place] [address], [address] [place] [address] POINT OF CARE [facility] Urine Cultureon 11-03-2024 [facility] Escherichia coli [place] Count >100,000 Escherichia coli: REACTION Ampicillin Islt JUAQUIN 16 Ampicillin+Sulbac Islt JUAQUIN 4 S Cefepime Islt JUAQUIN <=0.12 S cefTRIAXone Islt JUAQUIN <=0.25 S Ciprofloxacin Islt JUAQUIN 0.5 I B-Lactamase Extended Susc Islt NEG Gentamicin Islt JUAQUIN <=1 S levoFLOXacin Islt JUAQUIN 1 I Meropenem Islt JUAQUIN <=0.25 S Nitrofurantoin Islt JUAQUIN <=16 S Pip+Tazo Islt JUAQUIN <=4 S TMP SMX Islt JUAQUIN <=20 S Normal [facility] Comment on above: Performed By: #### M 100.2200, L502.0250 #### [facility] [address] [place], [place], [id number] Absolute lymphocyte countOrd ered By: Javed Pacheco on 11-01-2024 Lymphocytes Auto (Unsp spec) [#/Vol] 2.61 10*3/uL 0.83-4.51 [facility] Absolute neutrophil countOrd ered By: Javed Pacheco on 11-01-2024 Neutrophils (Bld) [#/Vol] 10.4 10*3/uL High 2.0-7.7 [facility] Anion gap in Serum or Plasma Ordered By: Javed Pacheco on 11-01-2024 Anion gap [Moles/Vol] 13 mmol/L 5-15 [facility] Automated lymphocyte count a s percentage of total leukocytesOrdered By: Javed Pacheco on 11-01-2024 Lymphocytes/100 WBC Auto (Unsp spec) 18.7 % Low 19-41 [facility] BUN/creatinine ratioOrdered By: Javed Pacheco on 11-01-2024 Urea nitrogen/Creatinine [Mass ratio] 14.1 mg/mg 10-20 [facility] Basophil percentageOrdered B y: Javed Pacheco on 11-01-2024 Basophils/100 WBC (Bld) 0.4 % 0-1 [facility] Bilirubin, totalOrdered By: Javed Pacheco on 11-01-2024 Bilirubin [Mass/Vol] 0.55 mg/dL 0.00-1.30 [facility] CBC W/Diff, Automatedon 10-23 Absolute Lymph 2.61 X10 3/uL Normal 0.83-4.51 [facility] Comment on above: Order Comment: Order Date: 10/19/24 Order Info: 0184-1 - CBCD Performed By: #### L 501.9985, L501.9520, L500.4050, L100.0100 #### [facility] [address] [place], [address] Absolute Neut 10.4 X10 3/uL High 2.0-7.7 [facility] Comment on above: Order Comment: Order Date: 10/19/24 Order Info: 0184-1 - CBCD Performed By: #### L 501.9985, L501.9520, L500.4050, L100.0100 #### [facility] [address] [place], [address] Basophils/100 WBC (Bld) 0.4 % Normal 0-1 [facility] Comment on above: Order Comment: Order Date: 10/19/24 Order Info: 0184-1 - CBCD Performed By: #### L 501.9985, L501.9520, L500.4050, L100.0100 #### [facility] [address] [place], [address] Eosinophils/100 WBC (Bld) 0.8 % Normal 0-5 [facility] Comment on above: Order Comment: Order Date: 10/19/24 Order Info: 0184-1 - CBCD Performed By: #### L 501.9985, L501.9520, L500.4050, L100.0100 #### [facility] [address] [place], [address] Erythrocyte distribution width (RBC) [Ratio] 13.4 % Normal 11.6-14.6 [facility] Comment on above: Order Comment: Order Date: 10/19/24 Order Info: 0184-1 - CBCD Performed By: #### L 501.9985, L501.9520, L500.4050, L100.0100 #### [facility] [address] [place], [address] Hematocrit (Bld) [Volume fraction] 44.9 % Normal 40-54 [facility] Comment on above: Order Comment: Order Date: 10/19/24 Order Info: 0184-1 - CBCD Performed By: #### L 501.9985, L501.9520, L500.4050, L100.0100 #### [facility] [address] [place], [address] Hemoglobin (Bld) [Mass/Vol] 15.4 g/dL Normal 13.0-16.5 [facility] Comment on above: Order Comment: Order Date: 10/19/24 Order Info: 0184-1 - CBCD Performed By: #### L 501.9985, L501.9520, L500.4050, L100.0100 #### [facility] [address] [place], [address] IG% 0.400 Normal 0.0-0.9 [facility] Comment on above: Order Comment: Order Date: 10/19/24 Order Info: 0184-1 - CBCD Result Comment: IG% - Immature Granulocytes (promyelocytes, myelocytes and metamyelocytes) > 1% indicates that a LEFT SHIFT is Present. Performed By: #### L 501.9985, L501.9520, L500.4050, L100.0100 #### [facility] [address] [place], [address] Lymphocytes/100 WBC (Bld) 18.7 % Low 19-41 [facility] Comment on above: Order Comment: Order Date: 10/19/24 Order Info: 0184-1 - CBCD Performed By: #### L 501.9985, L501.9520, L500.4050, L100.0100 #### [facility] [address] [place], [address] MCH (RBC) [Entitic mass] 29.0 pg Normal 27.0-32.0 [facility] Comment on above: Order Comment: Order Date: 10/19/24 Order Info: 0184-1 - CBCD Performed By: #### L 501.9985, L501.9520, L500.4050, L100.0100 #### [facility] [address] [place], [address] MCHC (RBC) [Mass/Vol] 34.3 g/dL Normal 32-36 [facility] Comment on above: Order Comment: Order Date: 10/19/24 Order Info: 0184-1 - CBCD Performed By: #### L 501.9985, L501.9520, L500.4050, L100.0100 #### [facility] [address] [place], [address] MCV (RBC) [Entitic vol] 84.6 fL Normal 80-94 [facility] Comment on above: Order Comment: Order Date: 10/19/24 Order Info: 0184-1 - CBCD Performed By: #### L 501.9985, L501.9520, L500.4050, L100.0100 #### [facility] [address] [place], [address] Monocytes/100 WBC (Bld) 5.2 % Normal 0-10 [facility] Comment on above: Order Comment: Order Date: 10/19/24 Order Info: 0184-1 - CBCD Performed By: #### L 501.9985, L501.9520, L500.4050, L100.0100 #### [facility] [address] [place], [address] Neutrophils/100 WBC (Bld) 74.5 % High 47-70 [facility] Comment on above: Order Comment: Order Date: 10/19/24 Order Info: 0184-1 - CBCD Performed By: #### L 501.9985, L501.9520, L500.4050, L100.0100 #### [facility] [address] [place], [address] Nucleated RBC (Bld) [#/Vol] 0 10*3/uL Normal 0-5 [facility] Comment on above: Order Comment: Order Date: 10/19/24 Order Info: 0184-1 - CBCD Performed By: #### L 501.9985, L501.9520, L500.4050, L100.0100 #### [facility] [address] [place], [address] Platelet mean volume (Bld) [Entitic vol] 10.2 fL Normal 6.2-12.0 [facility] Comment on above: Order Comment: Order Date: 10/19/24 Order Info: 0184- - CBCD Performed By: #### L 501.9985, L501.9520, L500.4050, L100.0100 #### [facility] [address] [place], [address] Platelets (Bld) [#/Vol] 377 10*3/uL Normal 150-450 [facility] Comment on above: Order Comment: Order Date: 10/19/24 Order Info: 0184- - CBCD Performed By: #### L 501.9985, L501.9520, L500.4050, L100.0100 #### [facility] [address] [place], [address] RBC (Bld) [#/Vol] 5.31 10*6/uL Normal 4.6-6.2 [facility] Comment on above: Order Comment: Order Date: 10/19/24 Order Info: 0184-1 - CBCD Performed By: #### L 501.9985, L501.9520, L500.4050, L100.0100 #### [facility] [address] [place], [address] RDW SD 41.3 fl Normal 35.1-43.9 [facility] Comment on above: Order Comment: Order Date: 10/19/24 Order Info: 0184-1 - CBCD Performed By: #### L 501.9985, L501.9520, L500.4050, L100.0100 #### [facility] [address] [place], [address] WBC (Bld) [#/Vol] 13.9 10*3/uL High 4.4-11.0 [facility] Comment on above: Order Comment: Order Date: 10/19/24 Order Info: 0184-1 - CBCD Performed By: #### L 501.9985, L501.9520, L500.4050, L100.0100 #### [facility] [address] 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 He was initially seen on 10/25/2023 after being referred in regards to hx of pancreatitis and possibly to get opinion of GLP-1 RA use. Had accident causing loss of function in lower extremities- able to stand but not able walk -Initially diagnosed: 9 to 10 years ago Denied any hyperglycemia symptoms Complications: Cardiovascular -- No Statin Use -- No Retinopathy -- No Last YUN/Retina Eval: November 2023, no retinopathy Nephropathy -- 11/2023, normal COLEEN/ARB Use -- Yes, losartan Polyneuropathy -- Yes, due to paraplegia as above Foot Exam: unknown Obesity -- Yes Other -- No -Family history of diabetes mellitus: No Personal history of DKA or HHS-- No Personal history of pancreatitis-- No History of alcohol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 rare Drug use: No REVIEW OF SYSTEMS ROS: constitutional-neg, heent-neg, heart-neg, respiratory-neg, GI-neg, -concern for UTI, skin-neg, lymph-neg, neuro-neg, psych-neg- All systems neg except as noted above in HPI. OBJECTIVE: BP 139/92 Pulse 97 Temp 36.1 ?C (97 ?F) Resp 16 Wt 99.8 kg (220 lb) SpO2 95% BMI 31.57 kg/m? . Vital signs reviewed by this provider. Physical Exam Vitals reviewed. Constitutional: General: He is not in acute distress. Appearance: Normal appearance. He is well-developed and normal weight. He is not ill-appearing, toxic-appearing or diaphoretic. Comments: He is in a wheelchair HENT: Head: Normocephalic and atraumatic. Neurological: General: No focal deficit present. Mental Status: He is alert and oriented to person, place, and time. Psychiatric: Attention and Perception: Attention normal. Behavior: Behavior normal. Behavior is cooperative. Latest Ref Rng 03/28/2024 GLUCOSE UA (POCT) Negative mg/dL Negative BILIRUBIN UA (POCT) Negative Negative KETONE UA (POCT) Negative mg/dL Negative SPECIFIC GRAVITY UA (POCT) 1.005 - 1.030 1.015 HEMOGLOBIN/BLOOD UA (POCT) Negative Negative PH UA (POCT) 4.5 - 8.0 6.0 PROTEIN UA (POCT) Negative mg/dL Negative UROBILINOGEN UA (POCT) Normal E.U./dL 0.2 NITRITE UA (POCT) Negative Negative LEUKOCYTES UA (POCT) Negative Small ! COLOR UA (POCT) Yellow CLARITY UA (POCT) Clear ASSESSMENT/PLAN: 1. Leukocytes in urine - ICD9: 791.7, ICD10: R82.998 - URINE CULTURE - UA DIP, URINE (POC) Previous UTI- Macrobid intermediate resistance He feels Keflex does not work Bactrim interacts with other meds - CIPROFLOXACIN 500 MG TABLET Urine culture sent to the lab. Will contact in 2-3 days (more content not included)... Normal [facility] UA DIP, URINE (POC)on 2023 BILIRUBIN UA (POCT) Negative Negative [facility] CLARITY UA (POCT) Clear [facility] COLOR UA (POCT) Yellow [facility] GLUCOSE UA (POCT) Negative Negative mg/dL [facility] Hemoglobin Ql (U) Negative Negative [facility] Interpretation and review of laboratory results Abnormal [facility] KETONE UA (POCT) Negative Negative mg/dL [facility] LEUKOCYTES UA (POCT) Small Abnormal Negative [facility] NITRITE UA (POCT) Negative Negative [facility] PH UA (POCT) 6.0 4.5 - 8.0 [facility] Protein Ql (U) Negative Negative mg/dL [facility] SPECIFIC GRAVITY UA (POCT) 1.015 1.005 - 1.030 [facility] UROBILINOGEN UA (POCT) 0.2 Jennifer l E.U./dL [facility] Location:[facility], [address] [place] [address], [id number] [place] [address] POINT OF CARE [facility] UA DIP, URINE (POC)on 2023 BILIRUBIN UA (POCT) Negative Negative [place] [facility] CLARITY UA (POCT) Turbid [facility] COLOR UA (POCT) Dark yellow [facility] GLUCOSE UA (POCT) Negative Negative mg/dL [facility] Hemoglobin Ql (U) Trace-intact Abnormal Negative [facility] Interpretation and review of laboratory results Abnormal [facility] KETONE UA (POCT) Trace Negative mg/dL [facility] LEUKOCYTES UA (POCT) Small Abnormal Negative [place] [facility] NITRITE UA (POCT) Negative Negative [facility] PH UA (POCT) 6.5 4.5 - 8.0 [facility] Protein Ql (U) 30 mg/dL Abnormal Negative [facility] SPECIFIC GRAVITY UA (POCT) 1.020 1.005 - 1.030 [facility] UROBILINOGEN UA (POCT) 0.2 Jennifer l E.U./dL [facility] Location:[facility], [address] [place] [address], [address] [place] [address] POINT OF CARE [facility] UA DIP, URINE (POC)on 2023 BILIRUBIN UA (POCT) Negative Negative [facility] CLARITY UA (POCT) Slightly [place] COLOR UA (POCT) Dark yellow [facility] GLUCOSE UA (POCT) Negative Negative mg/dL [facility] Hemoglobin Ql (U) Negative Negative [facility] Interpretation and review of laboratory results Abnormal [facility] KETONE UA (POCT) Negative Negative mg/dL [facility] LEUKOCYTES UA (POCT) Trace Abnormal Negative [facility] NITRITE UA (POCT) Positive Abnormal Negative [facility] PH UA (POCT) 5.5 4.5 - 8.0 [facility] Protein Ql (U) Negative Negative mg/dL [facility] SPECIFIC GRAVITY UA (POCT) 1.025 1.005 - 1.030 [facility] UROBILINOGEN UA (POCT) 0.2 Jennifer l E.U./dL [facility] Location:[facility], [address] [place] [address], [address] [place] [address] POINT OF CARE [facility] CT ABDOMEN W IV CONTRASTon 0 08-18-2023 CT ABDOMEN W IV CONTRAST Patient Name: NADEEN ALVAREZ : 1985 Exam Date/Time: 08/18/2023 13:54 Procedure: CT ABDOMEN W IV CONTRAST Ordering Provider: PACHECO ERIC Reason For Exam: K85.90 CT ABDOMEN WITH CONTRAST CLINICAL INDICATION: Diarrhea, pancreatitis TECHNIQUE: Multidetector spiral transaxial sequence was performed through the abdomen during the arterial phase and again in the portal venous phase dynamic intravenous infusion of 75 mL of 370 mg% contrast media. Coronal and sagittal reconstructions were reviewed as well. Dose reduction was employed with automated exposure control. COMPARISON: None. FINDINGS: Chest base: Normal. Liver: Generalized diminished attenuation as compared to the spleen, corresponding to diffuse fatty infiltration. No focal lesion. Biliary tree: Normal caliber. Gallstones are seen in a nondistended gallbladder. Spleen: Normal. Adrenals: Normal. Pancreas: No peripancreatic edema, fat stranding or peripancreatic fluid collection. No pancreatic mass. No duct dilation. Kidneys: Symmetric contrast enhancement without hydronephrosis. No focal lesion. Free fluid: None. Retroperitoneum and mesentery: No enlarged lymph nodes. Aorta: Normal caliber. Bowel: Normal caliber. Osseous structures: Postsurgical changes from T11 to L2 with a remote compression deformity of L1. IMPRESSION: 1. No evidence of acute pancreatitis, acute peripancreatic fluid collection or pseudocyst. Note that in the appropriate setting, normal imaging findings do not exclude a clinical diagnosis of acute pancreatitis. 2. Cholecystolithiasis. No biliary dilation. 3. Hepatic steatosis. Report Dictated on Electronically Signed By: Spencer Moore MD Electronically Signed Date/Time: 08/18/2023 2:40 PM EDT DIARRHEA X 5 MO EPIGASTRIC PAIN AFTER MEALS SX: L-SPINE Normal [facility] CT Abdomen W contrast Jah 0 08-18-2023 1. No evidence of acute pancreatitis, acute peripancreatic fluid collection or pseudocyst. Note that in the appropriate setting, normal imaging findings do not exclude a clinical diagnosis of acute pancreatitis. 2. Cholecystolithiasis. No biliary dilation. 3. Hepatic steatosis. Report Dictated on Electronically Signed By: Spencer Moore MD Electronically Signed Date/Time: 08/18/2023 2:40 PM EDT [employer] [facility] 1985 [id number] Exam Date/Time: 08/18/2023 13:54 Procedure: CT ABDOMEN W IV CONTRAST Ordering Provider: PACHECO ERIC Reason For Exam: K85.90 CT ABDOMEN WITH CONTRAST CLINICAL INDICATION: Diarrhea, pancreatitis TECHNIQUE: Multidetector spiral transaxial sequence was performed through the abdomen during the arterial phase and again in the portal venous phase dynamic intravenous infusion of 75 mL of 370 mg% contrast media. Coronal and sagittal reconstructions were reviewed as well. Dose reduction was employed with automated exposure control. COMPARISON: None. FINDINGS: Chest base: Normal. Liver: Generalized diminished attenuation as compared to the spleen, corresponding to diffuse fatty infiltration. No focal lesion. Biliary tree: Normal caliber. Gallstones are seen in a nondistended gallbladder. Spleen: Normal. Adrenals: Normal. Pancreas: No peripancreatic edema, fat stranding or peripancreatic fluid collection. No pancreatic mass. No duct dilation. Kidneys: Symmetric contrast enhancement without hydronephrosis. No focal lesion. Free fluid: None. Retroperitoneum and mesentery: No enlarged lymph nodes. Aorta: Normal caliber. Bowel: Normal caliber. Osseous structures: Postsurgical changes from T11 to L2 with a remote compression deformity of L1. [facility] Spencer Moore MD - 08/18/2023 Patient Name: NADEEN HOBSON : 1985 [facility]#: [id number] Exam Date/Time: 08/18/2023 13:54 Procedure: CT ABDOMEN W IV CONTRAST Ordering Provider: PACHECO ERIC Reason For Exam: K85.90 CT ABDOMEN WITH CONTRAST CLINICAL INDICATION: Diarrhea, pancreatitis TECHNIQUE: Multidetector spiral transaxial sequence was performed through the abdomen during the arterial phase and again in the portal venous phase dynamic intravenous infusion of 75 mL of 370 mg% contrast media. Coronal and sagittal reconstructions were reviewed as well. Dose reduction was employed with automated exposure control. COMPARISON: None. FINDINGS: Chest base: Normal. Liver: Generalized diminished attenuation as compared to the spleen, corresponding to diffuse fatty infiltration. No focal lesion. Biliary tree: Normal caliber. Gallstones are seen in a nondistended gallbladder. Spleen: Normal. Adrenals: Normal. Pancreas: No peripancreatic edema, fat stranding or peripancreatic fluid collection. No pancreatic mass. No duct dilation. Kidneys: Symmetric contrast enhancement without hydronephrosis. No focal lesion. Free fluid: None. Retroperitoneum and mesentery: No enlarged lymph nodes. Aorta: Normal caliber. Bowel: Normal caliber. Osseous structures: Postsurgical changes from T11 to L2 with a remote compression deformity of L1. IMPRESSION: 1. No evidence of acute pancreatitis, acute peripancreatic fluid collection or pseudocyst. Note that in the appropriate setting, normal imaging findings do not exclude a clinical diagnosis of acute pancreatitis. 2. Cholecystolithiasis. No biliary dilation. 3. Hepatic steatosis. Report Dictated on Electronically Signed By: Spencer Moore MD Electronically Signed Date/Time: 08/18/2023 2:40 PM EDT [facility] Radiology Study observation (narrative) [facility] CT Abdomen W contrast IVOrde red By: Spencer Moore on 08-18-2023 [facility] Work Phone: Culture, urineOrdered By: Radha Batista on 07-22-2022 Bacteria identified Cx Nom (U) Klebsiella pneumoniae sp pneum [facility] Basophil percentageon 2021 Bilirubin [Mass/Vol] 0.60 mg/dL 0.20-1.00 [facility] Work Phone: Comment on above: For patients on eltr ombopag therapy, use of Dimension [place] TBIL is not recommended. Chloride [Moles/Vol] 105 mmol/L 98-107 [facility] Work Phone: Glucose [Mass/Vol] 116 mg/dL 74-106 [facility] Work Phone: Comment on above: Fasting Glucose resu lt from 100 to 125 mg/dL suggests IMPAIRED HOMEOSTASIS per A.D.A. criteria. Potassium [Moles/Vol] 4.0 mmol/L 3.5-5.1 [facility] Work Phone: Protein [Mass/Vol] 8.1 g/dL 6.4-8.2 [facility] Work Phone: Sodium [Moles/Vol] 139 mmol/L 136-145 [facility] Work Phone: Laboratory - Chemistry and C hemistry - challengeon 03-12-2022 ALP [Catalytic activity/Vol] 78 U/L 45-117 [facility] Work Phone: ALT [Catalytic activity/Vol] 41 U/L 16-61 [facility] Work Phone: CO2 [Moles/Vol] 29.0 mmol/L 21.0-32.0 [facility] Work Phone: Globulin (S) [Mass/Vol] 4.2 g/dL 2.2-4.2 [facility] Work Phone: Urea nitrogen/Creatinine [Mass ratio] 19.5 mg/mg 10-20 [facility] Work Phone: No Panel Informationon 03-12 Estimated GFR (MDRD) Amer 210 mL/min >60 [facility] Work Phone: Comment on above: GFR Calc Estimated GFR (MDRD) Non-Af Amer 173 mL/min >60 [facility] Work Phone: Comment on above: Non- GFR Calc Serum or plasma albumin yemi urement (mass/volume)on 03-12-2022 Albumin [Mass/Vol] 3.9 g/dL 3.2-5.0 [facility] Work Phone: Serum or plasma albumin/glob ulin mass ratioon 03-12-2022 Albumin/Globulin [Mass ratio] 0.9 {ratio} 0.9-2.4 [facility] Work Phone: Serum or plasma calcium yemi urement (mass/volume)on 03-12-2022 Calcium [Mass/Vol] 9.1 mg/dL 8.5-10.1 [facility] Work Phone: Serum or plasma creatinine m easurement (mass/volume)on 03-12-2022 Creatinine [Mass/Vol] 0.56 mg/dL 0.70-1.30 [facility] Work Phone: Comment on above: The validity of the calculated GFR & GFRAA in patients over 70 years has not been determined. Clinical correlation is essential. Serum or plasma urea nitroge n measurement (mass/volume)on 03-12-2022 Urea nitrogen [Mass/Vol] 11 mg/dL 7-18 [facility] Work Phone: Thin prep Papanicolaou smear with manual screeningon 03-12-2022 Thin prep Papanicolaou smear with manual screening 19 U/L 15-37 [facility] Work Phone: Thin prep Papanicolaou smear with manual screening 5 5-15 [facility] Work Phone: Culture, urineon 08-28-2021 Bacteria identified Cx Nom (U) Streptococcus agalactiae (B) [facility] Work Phone: Culture, urineon 07-31-2021 Bacteria identified Cx Nom (U) Serratia marcescens [facility] Work Phone: Absolute lymphocyte counton 06-19-2021 Lymphocytes Auto (Unsp spec) [#/Vol] 1.98 10*3/uL 0.83-4.51 [facility] Work Phone: Basophil percentageon 2021 Basophils/100 WBC (Bld) 0.4 % 0-1 [facility] Work Phone: Bilirubin [Mass/Vol] 0.70 mg/dL 0.20-1.00 [facility] Work Phone: Comment on above: For patients on eltr ombopag therapy, use of Dimension [place] TBIL is not recommended. Chloride [Moles/Vol] 108 mmol/L 98-107 [facility] Work Phone: Cholesterol [Mass/Vol] 151 mg/dL <200 [facility] Work Phone: Comment on above: <200 mg/dL Desirable 200-240 mg/dL Borderline >240 mg/dL High Risk Eosinophils/100 WBC (Bld) 0.6 % 0-5 [facility] Work Phone: Glucose [Mass/Vol] 102 mg/dL 74-106 [facility] Work Phone: Comment on above: Fasting Glucose resu lt from 100 to 125 mg/dL suggests IMPAIRED HOMEOSTASIS per A.D.A. criteria. Neutrophils (Bld) [#/Vol] 7.5 10*3/uL 2.0-7.7 [facility] Work Phone: Neutrophils/100 WBC (Bld) 73.2 % 47-70 [facility] Work Phone: Potassium [Moles/Vol] 3.8 mmol/L 3.5-5.1 [facility] Work Phone: Protein [Mass/Vol] 7.5 g/dL 6.4-8.2 [facility] Work Phone: Sodium [Moles/Vol] 140 mmol/L 136-145 [facility] Work Phone: Triglyceride [Mass/Vol] 162 mg/dL [facility] Work Phone: Comment on above: The drugs N-Acetylcy steine and Metamizole may falsely depress this assay.Serum Triglycerides Reference Interval Normal <150 mg/dL Borderline high 150 - 199 mg/dL High 200 - 499 mg/dL Very High > or = 500 mg/dL WBC (Bld) [#/Vol] 10.2 10*3/uL 4.4-11.0 [facility] Work Phone: Blood erythrocytes count (nu mber/volume)on 06-19-2021 RBC (Bld) [#/Vol] 5.42 10*6/uL 4.6-6.2 [facility] Work Phone: Blood hemoglobin measurement (mass/volume)on 06-19-2021 Hemoglobin (Bld) [Mass/Vol] 15.8 g/dL 13.0-16.5 [facility] Work Phone: Blood lymphocytes/100 leukoc yteson 06-19-2021 Lymphocytes/100 WBC (Bld) 19.3 % 19-41 [facility] Work Phone: Blood monocytes/100 leukocyt eson 06-19-2021 Monocytes/100 WBC (Bld) 6.3 % 0-10 [facility] Work Phone: Blood platelet mean volumeon 06-19-2021 Platelet mean volume (Bld) [Entitic vol] 10.1 fL 6.2-12.0 [facility] Work Phone: Determination of erythrocyte mean corpuscular volume (MCV)on 06-19-2021 MCV (RBC) [Entitic vol] 85.6 fL 80-94 [facility] Work Phone: Hematocrit Auto (Bld) [Volum e fraction]on 06-19-2021 Hematocrit (Bld) [Volume fraction] 46.4 % 40-54 [facility] Work Phone: Laboratory - Chemistry and C hemistry - challengeon 06-19-2021 ALP [Catalytic activity/Vol] 72 U/L 45-117 [facility] Work Phone: ALT [Catalytic activity/Vol] 56 U/L 16-61 [facility] Work Phone: CO2 [Moles/Vol] 26.0 mmol/L 21.0-32.0 [facility] Work Phone: Globulin (S) [Mass/Vol] 3.8 g/dL 2.2-4.2 [facility] Work Phone: Urea nitrogen/Creatinine [Mass ratio] 17.5 mg/mg 10-20 [facility] Work Phone: Laboratory - Hematology and Cell countson 06-19-2021 Erythrocyte distribution width (RBC) [Entitic vol] 41.3 fL 35.1-43.9 [facility] Work Phone: Erythrocyte distribution width (RBC) [Ratio] 13.2 % 11.6-14.6 [facility] Work Phone: Immature granulocytes/100 WBC (Bld) 0.200 % 0.0-0.9 [facility] Work Phone: Comment on above: IG% - Immature Granu locytes (promyelocytes, myelocytes and metamyelocytes) > 1% indicates that a LEFT SHIFT is Present. MCH (RBC) [Entitic mass] 29.2 pg 27.0-32.0 [facility] Work Phone: Nucleated RBC/100 WBC (Bld) [Ratio] 0 % 0-5 [facility] Work Phone: MCHC Auto (RBC) [Mass/Vol]on 06-19-2021 MCHC (RBC) [Mass/Vol] 34.1 g/dL 32-36 [facility] Work Phone: No Panel Informationon 06-19 Estimated GFR (MDRD) Amer 235 mL/min >60 [facility] Work Phone: Comment on above: GFR Calc Estimated GFR (MDRD) Non-Af Amer 194 mL/min >60 [facility] Work Phone: Comment on above: Non- GFR Calc Platelets bldon 06-19-2021 Platelets (Bld) [#/Vol] 358 10*3/uL 150-450 [facility] Work Phone: Serum or plasma albumin yemi urement (mass/volume)on 06-19-2021 Albumin [Mass/Vol] 3.7 g/dL 3.2-5.0 [facility] Work Phone: Serum or plasma albumin/glob ulin mass ratioon 06-19-2021 Albumin/Globulin [Mass ratio] 1.0 {ratio} 0.9-2.4 [facility] Work Phone: Serum or plasma calcium yemi urement (mass/volume)on 06-19-2021 Calcium [Mass/Vol] 9.2 mg/dL 8.5-10.1 [facility] Work Phone: Serum or plasma cholesterol in HDL measurement (mass/volume)on 06-19-2021 Cholesterol in HDL [Mass/Vol] 29 mg/dL [facility] Work Phone: Comment on above: The drugs N-Acetylcy steine and Metamizole may falsely depress this assay. Reference Range HDL <40 mg/dL Low HDL Cholesterol HDL >or= 60 mg/dL High HDL Cholesterol Serum or plasma cholesterol in VLDL measurement (mass/volume)on 06-19-2021 Cholesterol in VLDL [Mass/Vol] 32 mg/dL 5-40 [facility] Work Phone: Serum or plasma creatinine m easurement (mass/volume)on 06-19-2021 Creatinine [Mass/Vol] 0.51 mg/dL 0.70-1.30 [facility] Work Phone: Comment on above: The validity of the calculated GFR & GFRAA in patients over 70 years has not been determined. Clinical correlation is essential. Serum or plasma low density lipoprotein (LDL) cholesterol measurement (mass/volume)on 06-19-2021 Cholesterol in LDL [Mass/Vol] 90 mg/dL 0-130 [facility] Work Phone: Serum or plasma urea nitroge n measurement (mass/volume)on 06-19-2021 Urea nitrogen [Mass/Vol] 9 mg/dL 7-18 [facility] Work Phone: Thin prep Papanicolaou smear with manual screeningon 06-19-2021 Thin prep Papanicolaou smear with manual screening 28 U/L 15-37 [facility] Work Phone: Thin prep Papanicolaou smear with manual screening 6 5-15 [facility] Work Phone: Whole blood hemoglobin A1c/t otal hemoglobin ratio (mass fraction)on 06-19-2021 HbA1c (Bld) [Mass fraction] 5.8 % 3.8-5.6 [facility] Work Phone: Comment on above: Normal < 5.7 % Predi abetic 5.7 - 6.4 % Diabetic >or= 6.5 % Please note range changes. Hemoglobin A1Con 12-04-2018 HbA1c (Bld) [Mass fraction] 160 mg/dl Normal [facility] Comment on above: Performed By: #### L A1C #### [facility] [address] [place], [place] [address] HbA1c (Bld) [Mass fraction] 7.2 % High 4.5-6.2 [facility] Comment on above: Performed By: #### L A1C #### [facility] [address] [place] [address] Comprehensive Panelon 2018 ALP [Catalytic activity/Vol] 73 U/L Normal 45-117 [facility] Comment on above: Performed By: #### P 14 #### [facility] [address] [place] [address] Bilirubin [Mass/Vol] 0.5 mg/dL Normal 0.2-1.0 [facility] Comment on above: Performed By: #### P 14 #### [facility] [address] [place], [place] [address] Protein [Mass/Vol] 7.4 g/dL Normal 6.4-8.2 [facility] Comment on above: Performed By: #### P 14 #### [facility] [address] [place], [place] [address] ALT [Catalytic activity/Vol] 45 U/L Normal 12-78 [facility] Comment on above: Performed By: #### P 14 #### [facility] [address] [place], [place] [address] AST [Catalytic activity/Vol] 26 U/L Normal 15-37 [facility] Comment on above: Performed By: #### P 14 #### [facility] [address] [place], [place] [address] Creatinine [Mass/Vol] 0.44 mg/dL Low 0.67-1.17 [facility] Comment on above: Performed By: #### P 14 #### [facility] [address] [place], [place] [address] Albumin [Mass/Vol] 3.8 g/dL Normal 3.4-5.0 [facility] Comment on above: Performed By: #### P 14 #### [facility] [address] [place], [place] [address] Anion gap [Moles/Vol] 7 mmol/L Low 8-16 [facility] Comment on above: Performed By: #### P 14 #### [facility] [address] [place], [place] [address] CO2 [Moles/Vol] 29 mmol/L Normal 21-32 [facility] Comment on above: Performed By: #### P 14 #### [facility] [address] [place], [place] [address] Glucose [Mass/Vol] 157 mg/dL High 70-99 [facility] Comment on above: Performed By: #### P 14 #### [facility] [address] [place], [place] [address] Urea nitrogen [Mass/Vol] 11 mg/dL Normal 7-18 [facility] Comment on above: Performed By: #### P 14 #### [facility] [address] [place], [place] [address] Calcium [Mass/Vol] 8.9 mg/dL Normal 8.5-10.1 [facility] Comment on above: Performed By: #### P 14 #### [facility] [address] [place], [place] [address] Chloride [Moles/Vol] 105 mmol/L Normal 98-107 [facility] Comment on above: Performed By: #### P 14 #### [facility] [address] [place], [place] [address] Potassium [Moles/Vol] 4.4 mmol/L Normal 3.5-5.1 [facility] Comment on above: Performed By: #### P 14 #### [facility] [address] [place], [place] [address] Sodium [Moles/Vol] 137 mmol/L Normal 136-145 [facility] Comment on above: Performed By: #### P 14 #### [facility] [address] [place], [place] [address] Hemogram/Diffon 12-02-2018 Abs. Baso 0.05 thou/cmm Normal 0.00-0.08 [facility] Comment on above: Performed By: #### L CBCD #### [facility] [address] [place], [place] [address] Abs. [place] 0.88 thou/cmm Normal 0.20-1.00 [facility] Comment on above: Performed By: #### L CBCD #### [facility] [address] [place], [place] [address] Abs. Neut (ANC) 4.44 thou/cmm Normal 3.00-5.67 [facility] Comment on above: Performed By: #### L CBCD #### [address] [address] Basophils/100 WBC (Bld) 0.6 % Normal [facility] Comment on above: Performed By: #### L CBCD #### [address] [address] Eosinophils (Bld) [#/Vol] 0.11 thou/cmm Normal 0.00-0.41 [facility] Comment on above: Performed By: #### L CBCD #### [address] [address] Eosinophils/100 WBC (Bld) 1.4 % Normal [facility] Comment on above: Performed By: #### L CBCD #### [address] [address] Erythrocyte distribution width (RBC) [Ratio] 13.5 % Normal 11.5-15.9 [facility] Comment on above: Performed By: #### L CBCD #### [address] [address] Hematocrit (Bld) [Volume fraction] 43.8 % Normal 42.0-52.0 [facility] Comment on above: Performed By: #### L CBCD #### [facility] [address] [place], [place] [address] Hemoglobin (Bld) [Mass/Vol] 15.1 g/dL Normal 14.0-18.0 [facility] Comment on above: Performed By: #### L CBCD #### [address] [place], [place] [address] Lymphocytes (Bld) [#/Vol] 2.42 thou/cmm Normal 1.50-3.65 [facility] Comment on above: Performed By: #### L CBCD #### [facility] [address] [place], [place] [address] Lymphocytes/100 WBC (Bld) 30.6 % Normal [facility] Comment on above: Performed By: #### L CBCD #### [facility] [address] [place], [place] [address] MCH (RBC) [Entitic mass] 28.4 pg Normal 27.0-31.0 [facility] Comment on above: Performed By: #### L CBCD #### [facility] [address] [place] [address] MCHC (RBC) [Mass/Vol] 34.5 % Normal 32.0-36.0 [facility] Comment on above: Performed By: #### L CBCD #### [facility] [address] [place] [address] MCV (RBC) [Entitic vol] 82.3 fL Normal 80.0-94.0 [facility] Comment on above: Performed By: #### L CBCD #### [place] [address] Monocytes/100 WBC (Bld) 11.1 % Normal [facility] Comment on above: Performed By: #### L CBCD #### [facility] [address] [place] [address] Platelet mean volume (Bld) [Entitic vol] 10.4 fL Normal 7.1-10.5 [facility] Comment on above: Performed By: #### L CBCD #### [facility] [address] [place] [address] Platelets (Bld) [#/Vol] 271 thou/cmm Normal 150-400 [facility] Comment on above: Performed By: #### L CBCD #### [place] [address] RBC (Bld) [#/Vol] 5.32 mil/cmm Normal 4.60-6.20 [facility] Comment on above: Performed By: #### L CBCD #### [facility] [address] [place] [address] Seg Neutrophil 56.3 % Normal [facility] Comment on above: Performed By: #### L CBCD #### [facility] [address] [place] [address] WBC (Bld) [#/Vol] 7.9 thou/cmm Normal 4.8-10.5 [facility] Comment on above: Performed By: #### L CBCD #### [facility] [address] [place] [address] Lipid Profileon 12-02-2018 Cholesterol [Mass/Vol] 119 mg/dL Normal 0-199 [facility] Comment on above: Performed By: #### L LIPD #### [place] [address] Cholesterol in HDL [Mass/Vol] 24 mg/dL Normal >40 [facility] Comment on above: Performed By: #### L LIPD #### [facility] [address] [place] [address] Cholesterol in LDL [Mass/Vol] 53 mg/dL Normal 0-150 [facility] Comment on above: Performed By: #### L LIPD #### [facility] [address] [place] [address] Cholesterol.total/Choles terol in HDL [Mass ratio] 5.0 {ratio} Normal 2.1-7.3 [facility] Comment on above: Performed By: #### L LIPD #### [facility] [address] [place] [address] Triglyceride Blood 208 mg/dL High 0-149 [facility] Comment on above: Performed By: #### L LIPD #### [facility] [address] [place] [address] Risk Factor See Below Normal [facility] Comment on above: Result Comment: Card iac Risk Factor The CHD risk factor is based on the total Chol/HDL ratio. Other factors affect CHD risk such as hypertension, smoking, diabetes, severe obesity and premature CHD. Cardiac Risk Total Chol/HDL ratio Men Women 1/2 avg risk 3.4-4.9 3.3-6.3 Avg risk 5.0-9.5 6.4-7.0 2x avg risk 9.6-23.3 7.1-10.9 3x avg risk >23.4 >11.0 Performed By: #### L LIPD #### [place] [address] MDRD GFRon 12-02-2018 GFR/1.73 sq M predicted among non-blacks MDRD (S/P/Bld) [Vol rate/Area] mL/min/{1.73_m2} Normal >60mL/min/1. 73m2 [facility] Comment on above: Result Comment: If t he patient is , multiply the result by 1.210. Performed By: #### G FR #### [place] [address] TSHon 12-02-2018 TSH Qn 2.16 uIU/mL Normal 0.34-4.82 [facility] Comment on above: Performed By: #### L TSH #### [place] [address] Office Visit (Urgent Care)on 12-14-2017 Office Visit (Urgent Care) Chief Complaint Fever Visit For: Other History of Present [id number] male with a history of a traumatic L1 burst fracture in 2005 which has left him partially paraplegic. He has limited. Sensation below the waist. He is able to support himself, but generally maneuvers with a wheelchair. He has had a history of multiple kidney stones, but his last one was 4-5 years ago. He is also a type II diabetic. He comes in with a three-day history of fever measured at 102 maximum, headache, myalgias, and fatigue. At his last doctor's visit. He was told he had high calcium levels. He is somewhat concerned about a new kidney stone.Review of systems is otherwise negative for constitutional, ear nose and throat, neck, heart, lungs, and abdomen. Review of SystemsConstitutional : as noted in HPI. Allergies No Known Drug Allergies Recorded By: Kristin Rayo; 12/14/2017 10:25:11 AM Current Meds Byetta 10 MCG Pen 10 MCG/0.04ML SOLN;Therapy: (Recorded:[id number]) to Recorded Dispense: 0 Days ; #: Sufficient SOLN; Refill: 0; MAX = N; Record; Last Updated By: Kristin Rayo; 12/14/2017 10:15:34 AM Losartan Potassium 100 MG Oral Tablet;Therapy: (Recorded:[id number]) to Recorded Dispense: 0 Days ; #: Sufficient TABS; Refill: 0; MAX = N; Record; Last Updated By: Kristin Rayo; 12/14/2017 10:15:34 AM Oxybutynin Chloride 5 MG Oral Tablet;Therapy: (Recorded:[id number]) to Recorded Dispense: 0 Days ; #: Sufficient TABS; Refill: 0; MAX = N; Record; Last Updated By: Kristin Rayo; 12/14/2017 10:15:34 AM Vitals Vital Signs Recorded: 14Dec2017 10:81QSQmzgpsgtyqh946 .6 FHeart Khvm927Hpmkioquvuj33C [id number] O2 Qebgyxcaeh17Rayi Scale5 Physical ExamPatient appears in no apparent distress and is well-hydrated. Vital signs noted. He is sitting in a wheelchair. There is somewhat diffuse lower extremity atrophy.Examination of the heart and lungs is normal. Examination of the back reveals no CVA tenderness. Abdominal examination is normal with no suprapubic tenderness. Results/DataUrinalysi s is positive for trace amount of blood, 1000 mg/dL of glucose, and 100 mg/dL of protein. Diagnoses/Problems Viral infection (079.99) (B34.9) Proteinuria (791.0) (R80.9) Glycosuria (791.5) (R81) Provider ImpressionsPossible kidney stone. Discussed treatment options. Patient Discussion/SummaryTod ay you were seen by Luis Please see your primary care physician in 5 days. Tylenol and drink plenty of fluids. Follow-up with your primary physician in 5 days for a recheck evaluation. End of Encounter MedsByetta 10 MCG Pen 10 MCG/0.04ML SOLN;Therapy: (Recorded:[id number]) to RecordedLosartan Potassium 100 MG Oral Tablet;Therapy: (Recorded:[id number]) to RecordedOxybutynin Chloride 5 MG Oral Tablet;Therapy: (Recorded:[id number]) to Recorded Signatures Electronically signed by : Loy Smith MD; Dec 14 2017 10:48AM EST (Author) Normal [facility] Culture, urine Bacteria identified Cx Nom (U) Serratia marcescens [facility] Work Phone: Bacteria identified Cx Nom (U) Streptococcus agalactiae (B) [facility] Work Phone: Bacteria identified Cx Nom (U) Presumptive E. coli [facility] Work Phone: Vital Signs Date Time Vital Sign Value Performing Clinician Facility 12-18-2024 15:29-0400 Body height 177.8 cm Armando Nayak APRN.[employer] Work Phone: [facility] 12-18-2024 15:29-0400 Body mass index (BMI) [Ratio] 26.11 kg/m2 Armando Nayak APRN.[employer] Work Phone: [facility] 12-18-2024 15:29-0400 Body temperature 98.4 [degF] Armando Nayak APRN.[employer] Work Phone: [facility] 12-18-2024 15:29-0400 Body weight 82.56 kg Armando Nayak APRN.[employer] Work Phone: [facility] 12-18-2024 15:29-0400 Diastolic blood pressure 84 mm[Hg] Armando Nayak APRN.[employer] Work Phone: [facility] 12-18-2024 15:29-0400 Heart rate 111 /min Armando Nayak APRN.[employer] Work Phone: [facility] 12-18-2024 15:29-0400 Respiratory rate 18 /min Armando Ball [employer]CERT PROMOTER.[employer] Work Phone: [facility] 12-18-2024 15:29-0400 SaO2% (BldA) [Mass fraction] 95 % Armando Ball [employer] Work Phone: [facility] 12-18-2024 15:29-0400 Systolic blood pressure 127 mm[Hg] Armando Ball [employer]CERT PR[employer]ER.[employer] Work Phone: [facility] 11-01-2024 14:22-0400 Diastolic blood pressure 80 mm[Hg] Tata Carver MD Work Phone: [facility] 11-01-2024 14:22-0400 Heart rate 83 /min Tata Carver MD Work Phone: [facility] 11-01-2024 14:22-0400 Respiratory rate 17 /min Tata Carver MD Work Phone: [facility] 11-01-2024 14:22-0400 SaO2% (BldA) [Mass fraction] 98 % Tata Carver MD Work Phone: [facility] 11-01-2024 14:22-0400 Systolic blood pressure 116 mm[Hg] Tata Carevr MD Work Phone: [facility] 09-05-2024 15:24-0400 Body temperature 97.59 [degF] Armando Ball [employer] PR[employer] Work Phone: [facility] 09-05-2024 15:24-0400 Diastolic blood pressure 90 mm[Hg] Armando Ball [employer]CERT PROMOTER.[employer] Work Phone: [facility] 09-05-2024 15:24-0400 Heart rate 101 /min Armando Ball [employer]CERT PROM[employer]ER.[employer] Work Phone: [facility] 09-05-2024 15:24-0400 SaO2% (BldA) [Mass fraction] 97 % Armando Ball [employer] PR[employer]ER.[employer] Work Phone: [facility] 09-05-2024 15:24-0400 Systolic blood pressure 132 mm[Hg] Armando Ball [employer]CERT PR[employer]ER.[employer] Work Phone: [facility] 07-26-2024 08:52-0400 Body temperature 97.5 [degF] Israel Mejiaere [employer]CERT PROMOTER.[employer] Work Phone: [facility] 07-26-2024 08:52-0400 Diastolic blood pressure 78 mm[Hg] Israel Fayeouere [employer]CERT PROMOTER.[employer] Work Phone: [facility] 07-26-2024 08:52-0400 Heart rate 97 /min Israel Mandel [employer]ERT PR[employer]OTER.[employer] Work Phone: [facility] 07-26-2024 08:52-0400 SaO2% (BldA) [Mass fraction] 97 % Israel Mandel [employer]ERT PROM[employer]ER.[employer] Work Phone: [facility] 07-26-2024 08:52-0400 Systolic blood pressure 112 mm[Hg] Israel Mejiaere [employer]CERT PROMOTER.[employer] Work Phone: [facility] 07-09-2024 08:10-0400 Body mass index (BMI) [Ratio] 31.57 kg/m2 Sang Adler DO, PhD Work Phone: [facility] 07-09-2024 08:10-0400 Body weight 99.79 kg Sang Adler DO, PhD Work Phone: [facility] Comment on above: Patient-reported 06-06-2024 15:23-0500 Body mass index (BMI) [Ratio] 31.57 kg/m2 Chayo Carlos [employer]ER.[employer] Work Phone: [facility] 06-06-2024 15:23-0500 Body temperature 97.59 [degF] Chayo Carlos [employer]ERT PR[employer]ER.[employer] Work Phone: [facility] 06-06-2024 15:23-0500 Body weight 99.79 kg Chayo Carlos [employer]CERT PR[employer]ER.[employer] Work Phone: [facility] 06-06-2024 15:23-0500 Diastolic blood pressure 95 mm[Hg] Chayo Carlos [employer]CERT PROMOTER.[employer] Work Phone: [facility] 06-06-2024 15:23-0500 Heart rate 84 /min Chayo Carlos [employer]CERT PROMOTER.[employer] Work Phone: [facility] 06-06-2024 15:23-0500 SaO2% (BldA) [Mass fraction] 98 % Chayo Carlos [employer]CERT PROMOTER.[employer] Work Phone: [facility] 06-06-2024 15:23-0500 Systolic blood pressure 133 mm[Hg] Chayo Carlos [employer]CERT PROMOTER.[employer] Work Phone: [facility] 06-01-2024 11:42-0500 Body mass index (BMI) [Ratio] 31.57 kg/m2 Tata Carver MD Work Phone: [facility] 06-01-2024 11:42-0500 Body temperature 98.4 [degF] Tata Carver MD Work Phone: [facility] 06-01-2024 11:42-0500 Body weight 99.79 kg Tata Carver MD Work Phone: [facility] 06-01-2024 11:42-0500 Diastolic blood pressure 86 mm[Hg] Tata Carver MD Work Phone: [facility] 06-01-2024 11:42-0500 Heart rate 98 /min Tata Carver MD Work Phone: [facility] 06-01-2024 11:42-0500 SaO2% (BldA) [Mass fraction] 97 % Tata Carver MD Work Phone: [facility] 06-01-2024 11:42-0500 Systolic blood pressure 128 mm[Hg] Tata Carver MD Work Phone: [facility] 03-28-2024 12:38-0500 Body mass index (BMI) [Ratio] 31.57 kg/m2 Shayla Crespo PA-C Work Phone: [facility] 03-28-2024 12:38-0500 Body temperature 97 [degF] Shayla Slabaugh PA-C Work Phone: [facility] 03-28-2024 12:38-0500 Body weight 99.79 kg Shayla Slabaugh PA-C Work Phone: [facility] 03-28-2024 12:38-0500 Diastolic blood pressure 92 mm[Hg] Shayla Slabaugh PA-C Work Phone: [facility] 03-28-2024 12:38-0500 Heart rate 97 /min Shayla Slabaugh PA-C Work Phone: [facility] 03-28-2024 12:38-0500 Respiratory rate 16 /min Shayla Slabaugh PA-C Work Phone: [facility] 03-28-2024 12:38-0500 SaO2% (BldA) [Mass fraction] 95 % Shayla Slabaugh PA-C Work Phone: [facility] 03-28-2024 12:38-0500 Systolic blood pressure 139 mm[Hg] Shayla Slabaugh PA-C Work Phone: [facility] 02-24-2024 09:39-0400 Body temperature 98.2 [degF] Tata Carver MD Work Phone: [facility] 02-24-2024 09:39-0400 Diastolic blood pressure 86 mm[Hg] Tata Carver MD Work Phone: [facility] 02-24-2024 09:39-0400 Heart rate 96 /min Tata Carver MD Work Phone: [facility] 02-24-2024 09:39-0400 Respiratory rate 18 /min Tata Carver MD Work Phone: [facility] 02-24-2024 09:39-0400 SaO2% (BldA) [Mass fraction] 96 % Tata Carver MD Work Phone: [facility] 02-24-2024 09:39-0400 Systolic blood pressure 128 mm[Hg] Tata Carver MD Work Phone: [facility] 01-05-2024 15:51-0400 Body mass index (BMI) [Ratio] 31.41 kg/m2 Chayo Carlos [employer]CERT PR[employer]OTER.[employer] Work Phone: [facility] 01-05-2024 15:51-0400 Body temperature 100.8 [degF] Chayo Carlos [employer]CERT PROMOTER.[employer] Work Phone: [facility] 01-05-2024 15:51-0400 Body weight 99.3 kg Chayo Carlos [employer]CERT [employer] Work Phone: [facility] 01-05-2024 15:51-0400 Diastolic blood pressure 84 mm[Hg] Chayo Carlos [employer]CERT PROMOTER.[employer] Work Phone: [facility] 01-05-2024 15:51-0400 Heart rate 101 /min Chayo Carlos [employer]CERT PROMOTER.[employer] Work Phone: [facility] 01-05-2024 15:51-0400 SaO2% (BldA) [Mass fraction] 99 % Chayo Carlos [employer]CERT PR[employer]ER.[employer] Work Phone: [facility] 01-05-2024 15:51-0400 Systolic blood pressure 103 mm[Hg] Chayo Carlos [employer]CERT PROMOTER.[employer] Work Phone: [facility] 12-20-2023 16:38-0400 Body temperature 98.1 [degF] Armando Ball CONCERT PROMOTER.[employer] Work Phone: [facility] 12-20-2023 16:38-0400 Diastolic blood pressure 92 mm[Hg] Armando Ball CONCERT PROMOTER.[employer] Work Phone: [facility] 12-20-2023 16:38-0400 Heart rate 90 /min Armando Ball [employer]CERT PROM[employer]ER.[employer] Work Phone: [facility] 12-20-2023 16:38-0400 Respiratory rate 16 /min Armando Ball [employer]CERT PROM[employer]ER.[employer] Work Phone: [facility] 12-20-2023 16:38-0400 SaO2% (BldA) [Mass fraction] 95 % Armando Nayak APRN.[employer] Work Phone: [facility] 12-20-2023 16:38-0400 Systolic blood pressure 148 mm[Hg] Armando Nayak APRN.CNP Work Phone: [facility] 11-24-2023 09:28-0400 Body height 177.8 cm Tata Carver MD Work Phone: [facility] 11-24-2023 09:28-0400 Body mass index (BMI) [Ratio] 31.42 kg/m2 Tata Carver MD Work Phone: [facility] 11-24-2023 09:28-0400 Body temperature 97.5 [degF] Tata Carver MD Work Phone: [facility] 11-24-2023 09:28-0400 Body weight 99.34 kg Tata Carver MD Work Phone: [facility] 11-24-2023 09:28-0400 Diastolic blood pressure 76 mm[Hg] Tata Carver MD Work Phone: [facility] 11-24-2023 09:28-0400 Heart rate 89 /min Tata Carver MD Work Phone: [facility] 11-24-2023 09:28-0400 SaO2% (BldA) [Mass fraction] 97 % Tata Carver MD Work Phone: [facility] 11-24-2023 09:28-0400 Systolic blood pressure 132 mm[Hg] Tata Carver MD Work Phone: [facility] 11-14-2023 14:24-0400 Body mass index (BMI) [Ratio] 31.47 kg/m2 Shayla Crespo PA-C Work Phone: [facility] 11-14-2023 14:24-0400 Body temperature 97.59 [degF] Shayla Bernyaugh PA-C Work Phone: [facility] 11-14-2023 14:24-0400 Body weight 99.5 kg Shayla Slabaugh PA-C Work Phone: [facility] Comment on above: Unable to weigh 11-14-2023 14:24-0400 Diastolic blood pressure 90 mm[Hg] Shayla Slabaugh PA-C Work Phone: [facility] 11-14-2023 14:24-0400 Heart rate 96 /min Shayla Slabaugh PA-C Work Phone: [facility] 11-14-2023 14:24-0400 SaO2% (BldA) [Mass fraction] 99 % Shayla Slabaugh PA-C Work Phone: [facility] 11-14-2023 14:24-0400 Systolic blood pressure 135 mm[Hg] Shayla Slabaugh PA-C Work Phone: [facility] 10-25-2023 15:32-0400 Body height 177.8 cm Tata Carver MD Work Phone: [facility] Comment on above: self-reported 10-25-2023 15:32-0400 Body mass index (BMI) [Ratio] 30.85 kg/m2 Tata Carver MD Work Phone: [facility] 10-25-2023 15:32-0400 Body weight 97.52 kg Tata Carver MD Work Phone: [facility] Comment on above: self-reported 10-25-2023 15:32-0400 Diastolic blood pressure 88 mm[Hg] Tata Carver MD Work Phone: [facility] 10-25-2023 15:32-0400 Heart rate 87 /min Tata Carver MD Work Phone: [facility] 10-25-2023 15:32-0400 Respiratory rate 19 /min Tata Carver MD Work Phone: [facility] 10-25-2023 15:32-0400 SaO2% (BldA) [Mass fraction] 96 % Tata Carver MD Work Phone: [facility] 10-25-2023 15:32-0400 Systolic blood pressure 128 mm[Hg] Tata Carver MD Work Phone: [facility] Encounters Encounter Date Encounter Type Care Provider Facility Start: 03-05-2025 End: 03-06-2025 ambulatory [facility] Facility:[facility] Start: 02-05-2025 End: 02-05-2025 ambulatory [facility] Facility:[facility] Start: 01-28-2025 End: 02-01-2025 Evaluation and management of inpatient SHAWN BE[place] Facility:[facility] Start: 01-28-2025 End: 01-28-2025 Emergency department patient visit JAVED PACHECO Facility:[facility] Start: 01-11-2025 End: 01-11-[address] Javed Pacheco MD Work Phone: -[facility] Start: 01-11-2025 End: 01-11-[address] Javed Pacheco MD -[facility] Start: 01-11-2025 End: 01-11-2025 ambulatory Javed Pacheco Facility:[facility] Start: 12-18-2024 End: 12-18-2024 Office outpatient visit 15 minutes Armando Nayak APRN.CNP Work Phone: [facility] Comment on above: Bladder spasm (Prima ry Dx); Urinary incontinence, unspecified type Start: 12-18-2024 End: 12-18-2024 ambulatory JAVED Granda [place] Facility:[facility] Start: 11-29-2024 End: 12-03-2024 Refill Tata Carver MD Work Phone: Endocrinology Comment on above: Refill Request Start: 11-01-2024 End: 11-01-[address] Javed Pacheco MD Work Phone: -[facility] Start: 11-01-2024 End: 11-01-2024 Patient encounter procedure Tata Carver MD Work Phone: Endocrinology Comment on above: Type 2 diabetes (HCC ) (Primary Dx); Obesity, Class I, BMI 30.0-34.9 (see actual BMI); Diabetes mellitus type 2 (HCC) Start: 11-01-2024 End: 11-01-[address] [facility] Facility:[facility] Start: 11-01-2024 End: 11-01-2024 [facility] Facility:[facility] Start: 10-25-2024 End: 10-25-2024 Get Medical Advice Tata Carver MD Work Phone: Endocrinology Comment on above: Refill request. Start: 10-22-2024 End: 10-25-2024 Refill Tata Carver MD Work Phone: Endocrinology Comment on above: Refill Request Start: 09-10-2024 End: 09-10-2024 ambulatory Tata Carver MD Work Phone: Endocrinology Comment on above: Trizepatide/Mounjaro Prescription Start: 09-07-2024 End: 11-07-2024 Follow-up encounter Chayo Carlos APRN.CNP Work Phone: [facility] Start: 09-05-2024 End: 09-05-2024 Office outpatient visit 15 minutes Armando Nayak APRN.CNP Work Phone: [facility] Comment on above: Urinary frequency (P rimary Dx); Urinary urgency; Bladder pain; Neurogenic bladder Start: 09-05-2024 End: 09-05-2024 [facility] Start: 08-21-2024 End: 08-22-2024 ambulatory Sang Adler DO, PhD Work Phone: Endocrinology Comment on above: Received large Bill Start: 08-02-2024 End: 08-02-2024 Refill Sang Adler DO, PhD Work Phone: Endocrinology Comment on above: Refill Request Start: 07-27-2024 End: 09-26-2024 Follow-up encounter Armando Nayak APRN.CNP Work Phone: [facility] Start: 07-26-2024 End: 07-26-2024 ambulatory JAVED [facility] Facility:[facility] Start: 07-26-2024 End: 07-26-2024 Patient encounter procedure Israel Mandel APRN.SUPERVISOR [employer] Work Phone: [facility] Comment on above: Acute cystitis with hematuria (Primary Dx); Self-catheterizes urinary bladder; Urinary frequency Start: 07-14-2024 End: 07-18-2024 Refill Tata Carver MD Work Phone: Endocrinology Comment on above: Refill Request Start: 07-11-2024 End: 07-11-2024 [facility] Get Medical Advice Sang Adler DO, PhD Work Phone: Endocrinology Comment on above: Need a printed lab o rder Start: 07-09-2024 End: 07-09-2024 ambulatory [facility] Facility:[facility] Comment on above: Obesity, Class I, BM I 30.0-34.9 (see actual BMI) (Primary Dx); Paraplegia (HCC); Type 2 diabetes (HCC); Essential (primary) hypertension; intermediate (current) use of insulin (HCC); intermission coordinator (current) use of oral hypoglycemic drugs Start: 07-09-2024 End: 07-09-2024 Telemedicine consultation with patient Sang Adler DO, PhD Work Phone: Endocrinology Start: 06-08-2024 End: 06-08-2024 E-mail encounter from caregiver Shayla Crespo PA-C Work Phone: [facility] Start: 06-08-2024 End: 08-08-2024 Follow-up encounter Shayla Crespo PA-C Work Phone: [facility] Start: 06-08-2024 End: 06-08-2024 Patient encounter procedure Shayla Crespo PA-C Work Phone: [facility] Comment on above: Lab results Start: 06-06-2024 End: 06-06-2024 ambulatory SELF Facility:[facility] Start: 06-06-2024 End: 06-06-2024 Office outpatient visit 25 minutes Chayo Carlos CONCERT PROMOTER.[employer]PER[employer]OR [employer] Work Phone: [facility] Comment on above: UTI symptoms (Primar y Dx) Start: 06-02-2024 End: 06-07-2024 Refill Leida Tarango CONCERT PROMOTER.SUPER[employer]OR [employer] Work Phone: Endocrinology Comment on above: Refill Request Start: 06-01-2024 End: 06-01-2024 ambulatory [facility]ED Granda [facility] [place] Facility:[facility] Start: 06-01-2024 End: 06-01-2024 Patient encounter procedure Tata Carver MD Work Phone: Endocrinology Comment on above: Type 2 diabetes stacy itus with hyperglycemia, with long-term current use of insulin (HCC) (Primary Dx); Diabetes mellitus type 2 (HCC); Class 1 obesity with serious comorbidity and body mass index (BMI) of 31.0 to 31.9 in adult, unspecified obesity type Start: 05-01-2024 End: 05-03-2024 Refill Tata Carver MD Work Phone: Endocrinology Comment on above: Refill Request Start: 03-28-2024 End: 03-28-2024 Patient encounter procedure Shayla Crespo PA-C Work Phone: [facility] Comment on above: Leukocytes in urine (Primary Dx) Start: 03-28-2024 End: 03-28-2024 ambulatory [facility]AVED Granda [place] Facility:[facility] Start: 03-26-2024 End: 03-27-2024 ambulatory Tata Carver MD Work Phone: Endocrinology Comment on above: Glucose Testing Marsha muñoz Start: 02-29-2024 End: 02-29-2024 ambulatory Tata Carver MD Work Phone: Endocrinology Comment on above: Basaglar Presciption Refill Request Start: 02-24-2024 End: 02-24-2024 Patient encounter procedure Tata Carver MD Work Phone: Endocrinology Comment on above: Type 2 diabetes stacy itus with hyperglycemia, with long-term current use of insulin (HCC) [E11.65, Z79.4] (Primary Dx) Start: 01-27-2024 End: 01-28-2024 Refill Tata Carver MD Work Phone: Endocrinology Comment on above: Refill Request Start: 01-26-2024 End: 01-26-2024 Refill Tata Carver MD Work Phone: Endocrinology Comment on above: Refill Request Start: 01-05-2024 End: 01-05-2024 Office outpatient visit 25 minutes Chayo Carlos APRN.SUPERVISOR [employer] Work Phone: [facility] Comment on above: Antibiotic treatment within past 2 months (Primary Dx); Fever, unspecified fever cause; Urinary frequency Start: 12-20-2023 End: 12-20-2023 Office outpatient visit 15 minutes Armando Nayak APRN.SUPERVISOR [employer] Work Phone: [employer] [facility] [facility] Comment on above: Urinary frequency (P rimary Dx); Urinary urgency Start: 11-24-2023 End: 11-24-2023 Patient encounter procedure Tata Carver MD Work Phone: Endocrinology Comment on above: Diabetes mellitus ty pe 2 (HCC) (Primary Dx) Start: 11-14-2023 End: 11-14-2023 Patient encounter procedure Shayla Crespo PA-C Work Phone: [facility] Comment on above: Acute otitis externa of right ear, unspecified type (Primary Dx); Right otitis media, unspecified otitis media type Start: 10-25-2023 End: 10-25-2023 Patient encounter procedure Tata Carver MD Work Phone: Endocrinology Comment on above: Diabetes mellitus ty pe 2 (HCC) (Primary Dx) Start: 08-18-2023 End: 08-19-2023 ambulatory JAVED JUNIOR [facility] Start: 08-18-2023 End: 08-18-2023 Subsequent hospital visit by physician Javed Pacheco Work Phone: [facility] Comment on above: Acute pancreatitis w ithout necrosis or infection, unspecified Start: 08-05-2023 End: 11-04-2023 Transcribe Orders Javed Pacheco Work Phone: [facility] Scheduling Comment on above: Acute pancreatitis w ithout necrosis or infection, unspecified (Primary Dx) Start: 07-20-2022 End: 07-20-2022 ambulatory [facility] Work Phone: Start: 07-20-2022 End: 07-20-2022 [facility] Start: 03-12-2022 End: 03-12-2022 ambulatory [facility] Work Phone: Start: 03-12-2022 End: 03-12-2022 Patient encounter procedure [facility] Start: 10-15-2021 End: 10-15-2021 [facility] Start: 08-28-2021 End: 08-28-2021 [facility] Start: 2021 End: 2021 ambulatory Malinda Rodríguez PT, DPT Work Phone: [facility] Comment on above: Shoulder stiffness, right (Primary Dx); Paraplegia (HCC); H/O spinal cord injury; Leg weakness, bilateral; Essential hypertension, malignant; Controlled type 2 diabetes mellitus without complication, unspecified whether fpc insulin use (HCC) Start: 07-31-2021 End: 07-31-2021 [facility] Start: 06-19-2021 End: 06-19-2021 [facility] Date Procedure Procedure Detail Performing Clinician Start: 12-18-2024 Urnls dip stick/tabl et rgnt auto w/o microscopy [facility] Provider Start: 11-01-2024 Hemoglobin A1c/Hemoglobin.total in Blood Tata Carver MD Work Phone: Start: 11-01-[address] Javed Pacheco MD Work Phone: Start: 09-05-2024 Urnls dip stick/tabl et rgnt auto w/o microscopy [facility] Provider Start: 07-26-2024 Urnls dip stick/tabl et rgnt auto w/o microscopy Israel Mandel APRN.SUPER[employer] Work Phone: Start: 06-06-2024 Urnls dip stick/tabl et rgnt auto w/o microscopy [facility] Provider Start: 06-01-2024 Hemoglobin A1c/Hemoglobin.total in Blood Tata Carver MD Work Phone: Start: 03-28-2024 Urnls dip stick/tabl et rgnt auto w/o microscopy Shayla Crespo PA-C Work Phone: Start: 01-05-2024 Urnls dip stick/tabl et rgnt auto w/o microscopy [facility] Provider Start: 12-20-2023 Urnls dip stick/tabl et rgnt auto w/o microscopy [facility] Provider Start: 08-18-2023 Ct abdomen w/contras t material Javed Pacheco Work Phone: Start: 08-28-2021 Urine culture Start: 07-31-2021 Urine culture Bacteria identified in Urine by Culture Urine culture Urine culture Plan of Treatment Date Care Activity Detail Author Start: 2045 RSV Immunization age d 60 or older (1 - 1-dose 60+ series) RSV Immunization aged 60 or older (1 - 1-dose 60+ series) [facility] Start: 08-05-2035 Zoster Vaccines (1 o f 2) Zoster Vaccines (1 of 2) [facility] Start: 01-18-2027 DTaP/Tdap/Td Vaccine s (2 - Td or Tdap) DTaP/Tdap/Td Vaccines (2 - Td or Tdap) [facility] Start: 01-18-2027 Urine microalbumin profile DTaP,Tdap,Td Vaccine (2 - Td or Tdap) [facility] Start: 11-22-2025 Glaucoma screening Dilated Retinal E xam [facility] Start: 07-26-2025 BP Controlled (<130/80) BP Controlle d (<130/80) [facility] Start: 05-04-2025 Hemoglobin A1c measurement HbA1C [facility] Start: 02-01-2025 End: 05-03-2025 Microalbumin/Creatinine [Mass Ratio] in Urine ALBUMIN/CREATININE RATIO, URINE Lab Routine Type 2 diabetes (HCC) Diabetes mellitus type 2 (HCC) Expected: 02/01/2025, Expires: 05/03/2025 [facility] Work Phone: Comment on above: Expected: 02/01/2025 , Expires: 05/03/2025 Start: 12-24-2024 Influenza vaccination [facility] Start: 12-07-2024 Glaucoma screening Dilated Retinal E xam [facility] Start: 11-30-2024 End: 11-30-2024 Patient encounter procedure 11/30/2024 9:00 AM EDT Office Visit Endocrinology [address] [place] [address] Tata Carver MD [address] [place], [place] [id number] 6 month f/u- Type 2 diabetes mellitus with hyperglycemia, with long-term current use of insulin (HCC) [E11.65, Z79.4]; Class 1 obesity with serious comorbidity and body mass index (BMI) of 31.0 to 31.9 in adult, unspecified obesity type [E66.811, Z68.31] Endocrinology Comment on above: 6 month f/u- Type 2 diabetes mellitus with hyperglycemia, with long-term current use of insulin (HCC) [E11.65, Z79.4]; Class 1 obesity with serious comorbidity and body mass index (BMI) of 31.0 to 31.9 in adult, unspecified obesity type [E66.811, Z68.31] Start: 11-29-2024 Hemoglobin A1c measurement HbA1C [facility] Start: 11-01-2024 End: 11-01-2024 Patient encounter procedure 11/01/2024 2:20 PM EDT Office Visit Endocrinology [address] [place] [id number] Tata Carver MD [address] [address] Medication issue Endocrinology Comment on above: Medication issue Start: 11-01-2024 End: 01-31-2025 Comprehensive metabolic 2000 panel - Serum or Plasma COMPREHENSIVE METABOLIC PANEL Lab Routine Type 2 diabetes (HCC) Diabetes mellitus type 2 (HCC) Expected: 11/01/2024, Expires: 01/31/2025 [facility] Comment on above: Expected: 11/01/2024 , Expires: 01/31/2025 Start: 11-01-2024 End: 01-31-2025 Lipid 1996 panel - Serum or Plasma LIPID PANEL, FASTING Lab Routine Type 2 diabetes (HCC) Diabetes mellitus type 2 (HCC) Expected: 11/01/2024, Expires: 01/31/2025 [facility] Comment on above: Expected: 11/01/2024 , Expires: 01/31/2025 Start: 11-01-2024 End: 01-31-2025 Thyrotropin [Units/volume] in Serum or Plasma THYROID STIMULATING HORMONE Lab Routine Type 2 diabetes (HCC) Diabetes mellitus type 2 (HCC) Expected: 11/01/2024, Expires: 01/31/2025 [facility] Comment on above: Expected: 11/01/2024 , Expires: 01/31/2025 Start: 09-14-2024 End: 09-14-2024 Follow-up encounter 09/14/2024 2:30 PM EDT [facility] Endocrinology [address] [place] [address] Sang Adler DO, PhD [address] [place] [address] 8 week follow-up- Weight Management Endocrinology Comment on above: 8 week follow-up- We ight Management Start: 07-13-2024 End: 07-13-2024 ambulatory 07/13/2024 7:30 AM EDT Results Only [facility] [address] [place] [address] [facility] Start: 07-09-2024 End: 10-08-2024 CBC panel - Blood by Automated count COMPLETE BLOOD COUNT Lab Routine Obesity, Class I, BMI 30.0-34.9 (see actual BMI) Type 2 diabetes (HCC) Expected: 07/09/2024, Expires: 10/08/2024 [facility] Comment on above: Expected: 07/09/2024 , Expires: 10/08/2024 Start: 07-09-2024 End: 10-08-2024 Comprehensive metabolic 2000 panel - Serum or Plasma COMPREHENSIVE METABOLIC PANEL Lab Routine Obesity, Class I, BMI 30.0-34.9 (see actual BMI) Type 2 diabetes (HCC) Expected: 07/09/2024, Expires: 10/08/2024 [facility] Comment on above: Expected: 07/09/2024 , Expires: 10/08/2024 Start: 07-09-2024 End: 10-08-2024 Lipid 1996 panel - Serum or Plasma LIPID PANEL BASIC Lab Routine Obesity, Class I, BMI 30.0-34.9 (see actual BMI) Expected: 07/09/2024, Expires: 10/08/2024 [facility] Work Phone: Comment on above: Expected: 07/09/2024 , Expires: 10/08/2024 Start: 07-09-2024 End: 10-08-2024 TSH W/REFLEX FT4 TSH W/REFLEX FT4 Lab Routine Obesity, Class I, BMI 30.0-34.9 (see actual BMI) Expected: 07/09/2024, Expires: 10/08/2024 [facility] Comment on above: Expected: 07/09/2024 , Expires: 10/08/2024 Start: 07-09-2024 End: 07-09-2024 ambulatory 07/09/2024 8:00 AM EDT [facility] Endocrinology [address] [place] [address] Sang Adler DO, PhD [address] [place] [address] Type 2 diabetes mellitus with hyperglycemia, with long-term current use of insulin (HCC) [E11.65, Z79.4]; Class 1 obesity with serious comorbidity and body mass index (BMI) of 31.0 to 31.9 in adult, unspecified obesity type [E66.811, Z68.31] Endocrinology Comment on above: Type 2 diabetes stacy itus with hyperglycemia, with long-term current use of insulin (HCC) [E11.65, Z79.4]; Class 1 obesity with serious comorbidity and body mass index (BMI) of 31.0 to 31.9 in adult, unspecified obesity type [E66.811, Z68.31] Start: 06-01-2024 End: 06-01-2024 Patient encounter procedure 06/01/2024 11:40 AM EST Office Visit Endocrinology [address] [place] [id number] Tata Carver MD [address] [place], [place] [address] 3 mo follow up Endocrinology Comment on above: 3 mo follow up Start: 02-24-2024 End: 05-25-2024 Microalbumin/Creatinine [Mass Ratio] in Urine ALBUMIN/CREATININE RATIO, URINE Lab Routine Diabetes mellitus type 2 (HCC) Expected: 02/24/2024, Expires: 05/25/2024 [facility] Comment on above: Expected: 02/24/2024 , Expires: 05/25/2024 Start: 02-24-2024 End: 02-24-2024 Patient encounter procedure 02/24/2024 9:40 AM EDT Office Visit Endocrinology [address] [place] [place] [id number] Tata Carver MD [address] [place] [address] 3 MTH F/U Endocrinology Comment on above: 3 MTH F/U Start: 12-25-2023 Covid-19 Vaccine () Covid-19 Vaccine ( season) [facility] Start: 12-25-2023 Covid-19 Vaccine () Covid-19 Vaccine () [facility] Start: 12-25-2023 Influenza vaccination [facility] Start: 11-24-2023 End: 02-23-2024 Comprehensive metabolic 2000 panel - Serum or Plasma COMPREHENSIVE METABOLIC PANEL Lab Routine Diabetes mellitus type 2 (HCC) Expected: 11/24/2023, Expires: 02/23/2024 [facility] Comment on above: Expected: 11/24/2023 , Expires: 02/23/2024 Start: 11-24-2023 End: 02-23-2024 Hemoglobin A1c in Blood HEMOGLOBIN A1C Lab Routine Diabetes mellitus type 2 (HCC) Expected: 11/24/2023, Expires: 02/23/2024 [facility] Work Phone: Comment on above: Expected: 11/24/2023 , Expires: 02/23/2024 Start: 11-24-2023 End: 02-23-2024 Lipid 1996 panel - Serum or Plasma LIPID PANEL BASIC Lab Routine Diabetes mellitus type 2 (HCC) Expected: 11/24/2023, Expires: 02/23/2024 [facility] Comment on above: Expected: 11/24/2023 , Expires: 02/23/2024 Start: 08-21-2023 Hemoglobin A1c measurement Diabetes: Hemoglobin A1C [facility] Start: 08-21-2023 Hepatitis B screening Urine Albumin:Creatinine Ratio [facility] Start: 08-21-2023 Hepatitis B surface antibody level LDL Cholesterol [facility] Start: 04-25-2023 Behavioral Health Screening Behavioral Health Screening [facility] Start: 02-19-2023 Hemoglobin A1c measurement HbA1C [facility] Start: 12-24-2022 COVID-19 Vaccine ( season) COVID-19 Vaccine () [facility] Start: 12-24-2021 Influenza vaccination INFLUENZ A (Season Ended) [facility] Start: 12-03-2019 Hepatitis B surface antibody level LDL CHOLESTEROL [facility] Start: 06-04-2019 Hemoglobin A1c/Hemoglobin.total in Blood HBA1C [facility] Start: 11-30-2018 Hepatitis B screening URINE ALBUMIN:CREATININE RATIO [facility] Start: 2012 HPV Vaccine (1 - 3-d ose SCDM series) HPV Vaccine (1 - 3-dose SCDM series) [facility] Start: 2004 Hepatitis B Vaccine (1 of 3 - 19+ 3-dose series) Hepatitis B Vaccine (1 of 3 - 19+ 3-dose series) [facility] Start: 2004 Hepatitis B Vaccines (1 of 3 - 19+ 3-dose series) Hepatitis B Vaccines (1 of 3 - 19+ 3-dose series) [facility] Start: 2004 Pneumococcal vaccination Pneumococcal Vaccine (1 of 2 - PCV) [facility] Start: 2004 Urine microalbumin profile DTAP,TDAP,TD (1 - Tdap) [facility] Start: 08-05-2003 ANNUAL PCP TEAM [employer] ACTUARY RUDDY DISEASE VISIT ANNUAL PCP TEAM CHRONIC DISEASE VISIT [facility] Start: 08-05-2003 Anxiety Screening Anxiety Screening [facility] Start: 08-05-2003 BP Controlled (<130/80) BP Controlle d (<130/80) [facility] Start: 08-05-2003 Depression Screening Depression Scre ening [facility] Start: 08-05-2003 Diabetes: Estimated Glomerular Filtration Rate for Kidney Health Diabetes: Estimated Glomerular Filtration Rate for Kidney Health [facility] Start: 08-05-2003 Diabetes: Urine Albumin-Creatinine Ratio for Kidney Health Diabetes: Urine Albumin-Creatinine Ratio for Kidney Health [facility] Start: 08-05-2003 HEPATITIS C SCREENING HEPATITIS C [facility] Start: 08-05-2003 Hepatitis C screening Hepatitis C [facility] Start: 08-05-2003 HIV SCREENING HIV SCREENING [facility] Start: 08-05-2003 HIV screening HIV Screening [facility] Start: 2001 ONE PNEUMOVAX PRIOR TO AGE 65 ONE PNEUMOVAX PRIOR TO AGE 65 [facility] Start: 1998 Varicella vaccination Varicell a Vaccines (1 of 2 - 13+ 2-dose series) [facility] Start: 1997 Adult depression screening assessment DEPRESSION SCREENING [facility] Start: 08-05-1995 3 comp foot exam completed DIABETIC FOOT EXAM [facility] Start: 08-05-1995 Diabetic foot examination [facility] Start: 08-05-1995 Glaucoma screening [facility] Start: 08-05-1995 Hepatitis C antibody , confirmatory test DILATED RETINAL EXAM [facility] Start: 08-05-1995 Preventive dental service Diabetes: Dental Exam [facility] Start: 08-05-1991 Pneumococcal vaccination Pneumococcal Vaccine (1 of 2 - PCV) [facility] Start: 1990 COVID-19 VACCINE (1) COVID-19 VACCIN E (1) [facility] Start: 1986 MMR Vaccines (1 of 1 - Standard series) MMR Vaccines (1 of 1 - Standard series) [facility] Start: 1985 HIV screening HIV Screening [facility] Start: 1985 Lipid panel Lipid Panel [facility] Bacteria identified in Urine by Culture URINE CULTURE Microbiology Routine Urinary frequency Urinary urgency Ordered: 12/20/2023 [facility] Work Phone: Comment on above: Ordered: 12/20/2023 Bacteria identified in Urine by Culture URINE CULTURE Microbiology Routine Fever, unspecified fever cause Urinary frequency Ordered: 01/05/2024 [facility] Work Phone: Comment on above: Ordered: 01/05/2024 Bacteria identified in Urine by Culture URINE CULTURE Microbiology Routine Leukocytes in urine Ordered: 03/28/2024 [facility] Work Phone: Comment on above: Ordered: 03/28/2024 Bacteria identified in Urine by Culture BACTERIAL CULTURE, URINE Microbiology Routine UTI symptoms Ordered: 06/06/2024 [facility] Work Phone: Comment on above: Ordered: 06/06/2024 Bacteria identified in Urine by Culture BACTERIAL CULTURE, URINE Microbiology Routine Acute cystitis with hematuria Ordered: 07/26/2024 [facility] Work Phone: Comment on above: Ordered: 07/26/2024 Bacteria identified in Urine by Culture BACTERIAL CULTURE, URINE Microbiology Routine Urinary frequency Urinary urgency Bladder pain Ordered: 09/05/2024 [facility] Work Phone: Comment on above: Ordered: 09/05/2024 Bacteria identified in Urine by Culture BACTERIAL CULTURE, URINE Microbiology Routine Bladder spasm Urinary incontinence, unspecified type Ordered: 12/18/2024 [facility] Work Phone: Comment on above: Ordered: 12/18/2024 Hemoglobin A1c/Hemoglobin.total in Blood HEMOGLOBIN A1C (POC) Lab Routine Type 2 diabetes mellitus with hyperglycemia, with long-term current use of insulin (HCC) Ordered: 06/01/2024 [facility] Work Phone: Comment on above: Ordered: 06/01/2024 OUTSIDE PROCEDURE SCAN OUTSIDE P ROCEDURE SCAN Procedures Ordered: 08/17/2023 [facility] Comment on above: Ordered: 08/17/2023 Payers Date Payer Category Payer Self-pay [id number] 2022 Private Health Insurance [employer] [id number] 2022 Unknown [id number] 2022 Unknown [id number] 2021 Unknown HOSPITAL/MEDICAL GENERIC MEDICAL GENERIC [id number] 2021-Present [address] [address] [place] [address] Indemnity [id number] 2015 Unknown [id number] Unknown [id number] Unknown [id number] Social History Date Type Detail Facility Start: 04-10-2020 End: 10-25-2023 Tobacco smoking status NHIS Never smoked tobacco [facility] Start: 09-21-2018 Alcohol intake Ex-drinker (finding) [facility] Start: 1985 Sex Assigned At Not on file [facility] Start: 07-25-2021 End: 2021 Exposure to SARS-CoV-2 (event) Not sure [facility] Start: 04-10-2020 End: 04-10-2020 Tobacco smoking status NHIS Unknown if ever smoked [facility] Start: 09-27-2018 None [facility] Start: 1985 Sex Assigned At Male [facility] Start: 03-15-2019 End: 10-25-2023 Gender identity Not on file [facility] Start: 10-25-2023 End: 11-01-2024 Tobacco use and exposure Smokeless tobacco non-user [facility] Start: 10-25-2023 End: 11-01-2024 Alcohol intake Current drinker of alcohol (finding) [facility] Start: 03-15-2019 End: 10-25-2023 History of Social function [facility] Start: 03-26-2012 PHQ-2 Score 0 [facility] Start: 10-25-2023 [facility] NEGATED: Highlighted rowStart: NINF History of tobacco use Passive smoker [facility] Medical Equipment Procedure Code Equipment Code Equipment Origin al Text Equipment Identifier Dates Use with blood glucose test four times a day. Insulin Dep? Yes [id number] Start: 03-27-2024 Clinical Notes 2021 to 03-06-2025 Armando Nayak APRN.SUPER[employer]OR [employer] - 12/18/2024 3:47 PM EDTPatient InstructionsTelephone Encounter - Ramonita Murillo MA - 11/29/2024 9:15 AM EDTTelephone Encounter - Ramointa Murillo MA - 11/29/2024 9:15 AM EDT Note Date & Type Note Facility 03-06-2025 Note HNO ID: [id number] Author: LYNNETTE FERRARA RN Service: Care Management Author Type: Registered Nurse Type: Care Mgt Progress Note Filed: 03/06/2025 15:53 Note Text: CARE MANAGEMENT DISCHARGE NOTE SERVICE DATE: March 06, 2025 SERVICE TIME: 3:51 PM Admission Date: 03/05/2025 LOS: 0 days Discharge Arrangement Discharge Arrangement: Home with Home Health Home Care: Nursing Services Arranged Medical Services: Skilled Home Health Care Type: Home Health Agency, Detention Provider Name: [facility] [phone] Caregiver Assessment Caregiver is ready, willing and able to meet the patient's needs as recommended by the inter-professional team: Yes Name of Caregiver: [facility] Transportation Arrangements Transportation Arrangements: Car Destination: home Handoff Communication: Handoff to: Primary Care Physician Primary Care Physician Name/Phone: Dr Javed Pacheco Additional Information: Discharge Information Row Name ED to Hosp-Admission (Current) from 03/05/2025 in [facility] Phone/ Per MD patient is medically ready for DC today Patient will dc home and continue home care services through [facility] Home care combo referral updated Family to transport home SIGNATURE: Lynnette Ferrara RN PATIENT NAME: Nadeen Hobson DATE: March 06, 2025 TIME: 3:51 PM [facility] 03-06-2025 Note HNO ID: [id number] Author: KANNAN WILSON RN Service: Nursing Author Type: Registered Nurse Type: Nursing Progress Note Filed: 03/06/2025 15:32 Note Text: Peripheral IV removed without complications. [facility] 03-06-2025 Note HNO ID: [id number] Author: LYNNETTE FERRARA RN Service: Care Management Author Type: Registered Nurse Type: Care Mgt Initial Assessment Filed: 03/06/2025 13:43 Note Text: CARE MANAGEMENT: ASSESSMENT AND DISCHARGE PLAN SERVICE DATE: March 06, 2025 SERVICE TIME: 1:40 PM PCP: Javed Pacheco MD Primary Contact: Extended Emergency Contact Information Primary Emergency Contact: Radha Duval Mobile Relation: Mother Secondary Emergency Contact: Segundo Hobson Mobile Relation: Father Admission Status: Observation Insurance Provider: UBALDO Marika Discharge Planning requested by: Per Department Practice Potential Transition Plans Home Care, Home Care Pharmacy Advance Directives Current Advance Directive: None Bundle Collector Attempted to Assist with AD Completion: Yes Action: Patient Unwilling Current Living Arrangements and Support Lives with: Family members Type of Residence: Private Residence (House) Does the patient have to climb stairs at home?: Yes Support: Family members How do you manage to accomplish the following: Independent: Ambulation, Bathe/Shower, Dress, Meals/Meal Prep, Going to the bathroom, Medication Management, Transportation to appointments/community Current Services/Equipment Current Post-Acute Service(s): DME Current DME Type: Wheelchair-manual Discharge Planning Patient Goal(s): General wellness, Be able to go home Murray of Choice Explained: Murray of Choice Given: Yes Level of Care Discussed: Home Care Are you interested in bedside delivery of your medications? No Discharge Planning Participant(s): Patient Patient/Family Comments: N/A Caregiver Assessment: Caregiver is ready, willing and able to meet the patient's needs as recommended by the inter-professional team: Yes Name of Caregiver: plans to return home with [facility] Transport at Discharge: Transportation Arrangements: Car Destination: home Needs Prior to Discharge: Needs Prior to Discharge: Home Care Order, Other: See Comment (medical clearance) Post-Acute Discharge Plan: EMR reviewed, RNCM met with patient at bedside introduced self and role. 39 y/o admitted with PICC line trouble. PMHX treated for osteomyelitis with cefepime and vancomycin Hx of paraplegia/ neurogenic bladder and self caths. Has all needed DME Patient reports independent from home, dc plan will be to return and continue home care services through [facility] Father to transport SIGNATURE: Lynnette Ferrara RN PATIENT NAME: Nadeen Hobson DATE: March 06, 2025 TIME: 1:40 PM [facility] 02-05-2025 Note HNO ID: [id number] Author: RADHA PLEITEZ RN Service: ? Author Type: Registered Nurse Type: Progress Notes Filed: 02/05/2025 14:51 Note Text: Nursing Documentation Pertinent Medical History: Paraplegic, hypertension, diabetes, neurogenic bladder Wound Etiology according to patient: pressure injury started 11/2024 Patient arrived via: in w/c by self Home Care Company/Nursing Facility: [facility] ph [phone], fax [phone] Consent captured for debridement per (Provider) and good until Special Instructions (for example, patient stands at the bedside for exam/dressing): pt tranfers to bed by self with 1 standby assist Anticoagulant Therapy:none Living Situation (ie... 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 Carrion 02/05/25 PICC LINE TO LEFT ARM WOUND ASSESSMENT: Refer to Provider's Wound Assessment Note VASCULAR ASSESSMENT BY PROVIDER: N/A LUZ'S Left: Right: Brachial Pressure: HR: CHF History:pt denies Smoking:n/a Education: EDEMA: n/a Right foot: Right calf: Left foot: Left Calf: Other: MEASUREMENTS: in CM n/a Right Calf: Right Ankle: Left Calf: Left Ankle: Length: WOUND PHOTOGRAPHY: YES, date taken: 02/05/25 DEBRIDEMENT PROCEDURE BY PROVIDER: Anesthetic Used: N/A applied per credit checker # Other procedure: Specimen collected: WOUND TREATMENT PER MD ORDER: Wounds cleansed by mechanical debridement to allow provider to visualize wound base 02/05/25 PT ARRIVED AT WOUND CENTER , NO OPEN WOUND NOTED AT THIS TIME COMPRESSION: N/A DME: Prism order date __ DME: [employer] , PH: [phone] SPECIAL NEEDS: Coordination of care N/A Emotional support N/A OR set-up N/A Floor Assembler N/A Incontinence needs N/A DISCHARGED in stable condition to: Plan: Follow-up: with Dr. Carrion in 6 weeks - continue IV antibiotics until seen by Dr. Carrion EDUCATION: The patient/family was instructed how to cleanse the wound(s). Visual demonstration on how to apply the dressing with teach back method. Signs AND symptoms of infection were reviewed: Increased redness, swelling, pain, green/yellow drainage, fever and/or chills would all need to be evaluated by a Physician. Patient received typed home-going wound care instructions and has expressed intent to comply. Due to the cold and flu season approaching us, if you have any symptoms such as a cough, fever, chills, nausea, vomiting, diarrhea, and/or body aches, please call and reschedule your appointment in the Wound Center. OTHER EDUCATION by RN: Education performed regarding lymphedema/edema: Elevation of extremity above the heart for 30 minutes three times daily and as needed Exercise such as writing the ABC's with your toes in the air, walking and/or calf pumps Wearing compression as ordered by provider Diet controlling of sodium as instructed by provider Use of medication to help control edema. ____ UNIVERSAL PROTOCOL / SAFETY CHECKLIST Current HBOT Status: Active or Complete - see screening below WOUND CENTER HYPERBARIC OXYGEN THERAPY SCREENING 1. Is the patient diabetic? (If No, skip to question 5) No 5. Has the patient been diagnosed with osteomyelitis? Yes 6. Has the patient had a previous skin graft or flap at the wound? No 7. Has the patient had or been offered vascular intervention/evaluation? No 8. Does the patient have a wound at an amputation site? No 9. Has the patient had radiation therapy at the site of the problem? No If Yes to ANY of questions 5-9, consult the Hyperbaric Center Radha Pleitez RN/ lt [facility] 02-05-2025 Note HNO ID: [id number] Author: GABI CARRION MD Service: ? Author Type: Physician Type: Progress Notes Filed: 02/06/2025 08:14 Note Text: INFECTIOUS DISEASE WOUND CENTER NOTE Patient Name: Nadeen Hobson Date: 02/05/2025 ASSESSMENT: Complicated UTI (urinary tract infection) (POA: Yes) Paraplegia (HCC) (POA: Yes) Primary hypertension (POA: Yes) Type 2 diabetes (HCC) (POA: Yes) Neurogenic bladder (POA: Yes) Obesity, Class I, BMI 30.0-34.9 (see actual BMI) (POA: Yes) Hyponatremia (POA: Yes) Sepsis (HCC) (POA: Yes) Constipation (POA: Yes) RECOMMENDATIONS: CT ABD/PEL WO IVCON (01/28/2025 2:20 PM) Stopped Rocephin Urine culture growing E. Coli MRI w ischial OM. Attempted biopsy/drainage with interventional radiology but failed Elevate CRP 13.7 MRI PELVIS WO/W IVCON (01/29/2025 6:02 PM) Continue Cefepime Continue Vancomycin Follows labs Orthopedic following Labs reviewed and discussed. No new labs since IV antibiotics was restarted only yesterday. PICC care CoPat instructions Follow-up at the wound center in 6 weeks I have reviewed and interpreted all lab test imaging studies and documentations from other healthcare providers I am monitoring antibiotics for side effects and toxicity INTERVAL HISTORY: ROS done with pt and negative unless stated. 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 The patient has had no fevers or chills. He is doing well otherwise. He is tolerating antibiotics without any problems. No problems with the PICC line noted. MEDICATIONS: vancomycin 1.75 g in NaCl 0.9% 500 mL (VANCOCIN) Inject 1.75 g intravenously every 12 hours. Stop date 03/13/25. cefepime 2 g in NaCl 0.9% 100 mL (MAXIPIME) Inject 2 g intravenously every 8 hours. Stop date 03/13/25. sodium chloride 0.9 %, flush, (MONOJECT PREFILL SALINE FLUSH INJECTION) Inject 10 mL intravenously three times a day. cefepime (MAXIPIME) 2 g in D5W 100 mL Inject 100 mL intravenously every 8 hours. polyethylene glycol 3350 17 gram packet Take 1 packet by mouth once daily as needed for constipation. Dissolve dose in 4 - 8 ounces of liquid and take as directed. senna (SENOKOT) 8.6 mg tab Take 1 tablet by mouth two times a day. vancomycin (VANCOCIN) 1.75 g in D5W 500 mL Inject 500 mL intravenously every 12 hours. tirzepatide (MOUNJARO) 7.5 mg/0.5 mL pen injector Inject 7.5 mg subcutaneously one time a week. metFORMIN ER (GLUCOPHAGE XR) 500 mg 24 hr tablet Take 1 tablet by mouth every 12 hours. Blood-Glucose Sensor ([employer] G7 SENSOR) jaime Apply 1 Each as directed every 10 days. blood sugar diagnostic (ACCU-CHEK GUIDE TEST STRIPS) test strip Use with blood glucose test four times a day. Insulin Dep? Yes Blood-Glucose Meter (ACCU-CHEK GUIDE ME GLUCOSE MTR) 1 Each as needed. losartan (COZAAR) 100 mg tablet Take 100 mg by mouth once daily. oxybutynin ER (DITROPAN XL) 15 mg 24 hr Extended Rel Tab Take 15 mg by mouth once daily. CATHETER 12 FR-16 Use as directed PHYSICAL EXAM: Vital signs: stable, afeb General: alert, oriented, NAD Lungs: bilaterally clear to auscultation Heart: regular rate and rhythm Abdomen: soft, non tender, non distended, BS+ Extremities: no swollen joints Skin: no rash No open wound in the ischial area. No tenderness or superficial signs of infection Lab data: reviewed WBC Date Value 02/01/2025 7.60 k/uL 01/31/2025 7.12 k/uL 01/30/2025 6.08 k/uL 12/02/2018 7.9 thou/cmm 01/11/2017 10.3 thou/cmm 11/26/2013 14.60 k/uL Hemoglobin (g/dL) Date Value 02/01/2025 14.8 01/31/2025 14.2 01/30/2025 14.1 11/26/2013 16.6 HGB (g/dL) Date Value 12/02/2018 15.1 01/11/2017 15.0 INR (no units) Date Value 01/31/2025 1.0 Sodium Date Value 02/01/2025 140 mmol/L 01/31/2025 140 mmol/L 01/30/2025 139 mmol/L 12/02/2018 137 mEq/L 11/30/2017 136 mEq/L 01/11/2017 140 mEq/L Potassium Date Value 02/01/2025 4.3 mmol/L 01/31/2025 4.5 mmol/L 01/30/2025 4.2 mmol/L 12/02/2018 4.4 mEq/L 11/30/2017 3.5 mEq/L 01/11/2017 3.7 mEq/L CO2 Date Value 02/01/2025 24 mmol/L 01/31/2025 26 mmol/L 01/30/2025 26 mmol/L 12/02/2018 29 mEq/L 11/30/2017 27 mEq/L 01/11/2017 29 mEq/L BUN (mg/dL) Date Value 02/01/2025 10 01/31/2025 10 01/30/2025 10 12/02/2018 11 11/30/2017 11 01/11/2017 4 Creatinine (mg/dL) Date Value 02/01/2025 0.41 01/31/2025 0.61 01/30/2025 0.52 12/02/2018 0.44 11/30/2017 0.48 01/11/2017 0.44 AST (U/L) Date Value 01/28/2025 20 08/20/2022 22 12/02/2018 26 11/30/2017 33 01/11/2017 50 ALT (U/L) Date Value 01/28/2025 22 08/20/2022 39 12/02/2018 45 11/30/2017 62 01/11/2017 92 Bilirubin, Total (mg/dL) Date Value 01/28/2025 1.0 08/20/2022 0.5 12/02/2018 0.5 11/30/2017 0.6 01/11/2017 0.7 (more content not included)... [facility] 02-01-2025 Note HNO ID: [id number] Author: JASMIN BUTLER RN Service: Care Management Author Type: Registered Nurse Type: Care Mgt Progress Note Filed: 02/01/2025 15:50 Note Text: CARE MANAGEMENT DISCHARGE NOTE SERVICE DATE: February 01, 2025 SERVICE TIME: 3:45 PM Admission Date: 01/28/2025 LOS: 4 days Discharge Arrangement Discharge Arrangement: Home with Home Health Home Care: Nursing Provider Name: [facility] Provider Name: [facility] Caregiver Assessment Caregiver is ready, willing and able to meet the patient's needs as recommended by the inter-professional team: Yes Name of Caregiver: [facility] Transportation Arrangements Transportation Arrangements: Car Date of Trip: 02/01/25 Destination: Home Handoff Communication: Handoff to: Primary Care Physician Primary Care Physician Name/Phone: Javed Pacheco MD/[phone] Discharge Information Row Name Admission (Current) from 01/28/2025 in [facility] Start of Care 02/04/25 Home Infusion Pharmacy Agency [facility] Phone/ Start of Care 02/04/25 Pharmacy delivery of the IV antibiotics to your residence prior to nursing start of care on 02/04. Discharge order is written. Per ID, plan for IV antibiotic holiday over the weekend due to Home Care not being able to see the patient until Sunday 02/04 and the patient being adamant about going home today. [facility] confirmed they can accept with a start of care planned for Sunday 02/04. [facility] to deliver the IV antibiotic supplies to the patient's residence on Saturday 02/03. The patient was updated at bedside and is agreeable to the discharge plan. His father will be driving him home today. SIGNATURE: Jasmin Butler RN PATIENT NAME: Nadeen Hobson DATE: February 01, 2025 TIME: 3:45 PM [facility] 01-31-2025 Note HNO ID: [id number] Author: ZEINAB YUSUF RN Service: PICC Team Author Type: Registered Nurse Type: Procedures Filed: 01/31/2025 16:28 Note Text: PICC NURSE INSERTION NOTE DATE OF PROCEDURE: January 31, 2025 TIME OF PROCEDURE: 1600 ORDERING PHYSICIAN: Yudelka Fisher INFORMED CONSENT: Obtained per hospital policy. INDICATION FOR LINE PLACEMENT: COPAT CONDITION OF LINE PLACEMENT: Sterile PRIMARY PROCEDURALIST: Katlyn Vanessa RN MANAGER VALIDATION: Zeinab Hairston RN PRE-PROCEDURE REVIEW ALLERGIES Allergen Reactions Trulicity [Dulaglut* GI Upset, Other: See Comments Abdominal pain, bloating Bees Swelling As a child - has been stung since with no anaphylactic reaction, does not carry an epi-pen Ozempic [Semaglutid* GI Upset Fatigue, nausea Known History of Upper Venous Thrombosis: No Known History of Permanent Pacemaker or Automated Implanted Cardiac Device: No Previous Breast Surgery of Lymph Node Dissection: No Estimated Glomerular Filtration Rate Date Value Ref Range Status 01/31/2025 125 >=60 mL/min/1.73m? Final Comment: Estimated Glomerular Filtration Rate (eGFR) is calculated using the 2020 CKD-EPI creatinine equation. This equation utilizes serum creatinine, sex, and age as parameters. The creatinine assay has traceable calibration to isotope dilution-mass spectrometry. Refer to KDIGO guidelines for clinical interpretation. In patients with unstable renal function, e.g. those with acute kidney injury, the eGFR may not accurately reflect actual GFR. eGFR Date Value Ref Range Status 12/02/2018 >60 >60mL/min/1.73m2 Final Comment: If the patient is , multiply the result by 1.210. History of Renal Disease: No Ultrasound Assessment Complete: Yes PROCEDURE NARRATIVE SAFE PRACTICE Hand Hygiene per Hospital Policy: Yes Skin Preparation Unit Dose Applicator Used: Chloraprep (CHG + alcohol), allowed to dry. Procedure Surface Cleansed with Antimicrobial Wipes: Yes Barriers Used by Proceduralist and all Assisting Personnel: Yes UNIVERSAL PROTOCOL / SAFETY CHECKLIST Procedure to be Performed: ultrasound guided insertion of peripherally inserted central catheter with local anesthetic Sign In: A Moment of CARE was completed. Appropriate PPE (Personal Protective Equipment) worn by all providers involved with the procedure. Special equipment utilized ultrasound machine. Patient/Surrogate Stated/Verified: Patient name, Date of , Relevant allergies, and The intended procedure Time Out: Relevant labs, photos, and/or imaging studies have been reviewed. Intended patient and procedure match the source document(s) (e.g. consent, HANDP, associated studies [imaging, pathology]) match the intended patient and procedure. Consent obtained and matches the intended procedure. Yes. Correct side/site is not applicable. Medications required for this procedure are verified. Fire risk assessed and interventions discussed. Implants: Correct implant(s) confirmed including size and side. Expiration date(s) reviewed. Sign Out: Specimens not collected. All instruments, equipment, possible retained foreign bodies are accounted for. Yes. The post-procedure plan of care has been communicated to patient's multidisciplinary team (including bedside nurse for hospitalized patients). CATHETER PLACEMENT Brand: [employer] App Lot: [id number] Number of Lumens: 1 Type of PICC: Power Injectable PICC Lumen Size: 4 Polish PLACEMENT TECHNIQUE Lidocaine: Yes, Lidocaine 1% Volume 2 mL Subcutaneous Modified Seldinger Technique Used to Place Line via the Left Basilic Ultrasound Guidance: Yes Number of Attempts at Insertion: 1 Ensured control of guidewire during all aspects of the procedure: Yes Accounted for entire guidewire upon removal: Yes Internal Length: 43 cm External Length: 1 cm Trim Length: 44 cm Mid-Arm Circumference: 36 centimeters Post Insertion Pain Level Related to Procedure: 0 Action Taken to Address Pain: None needed Verified Placement: Blood return and flushes with ease and Tip location system or device indicates the tip is located in the SVC/CAJ. Line was Flushed with 20 mL normal saline Line Secured with: Securement device Sterile Dressing Applied and Dated: Yes Sterile Caps on all Ports Prior to Leaving Procedure Area: Yes, Disinfection caps applied SPECIMENS: None COMPLICATIONS: None Patient Education Materials: Placed in chart [facility] Line Insertion checklist was utilized during this procedure. QUESTIONS or PROBLEMS: Call [phone] SIGNATURE: Zeinab Yusuf RN PATIENT NAME: Nadeen Hobson DATE: January 31, 2025 TIME: 4:03 PM PAGER/CONTACT PHONE: [facility] 01-31-2025 Note HNO ID: [id number] Author: CHARMAINE FISHER MD Service: Hospital Medicine Author Type: Physician Type: Progress Notes Filed: 01/31/2025 15:47 Note Text: DEPARTMENT OF HOSPITAL MEDICINE PROGRESS NOTE SERVICE DATE: 01/31/2025 SERVICE TIME: 3:45 PM Hospital Medicine/Primary Attending: Charmaine Fisher MD NIGHT AND WEEKEND COVERAGE: ALISO VIEJO COVERAGE: Days: [phone], please page attending physician. Nights: [phone], please page [facility] Night coverage pager [phone]. Subjective INTERVAL HPI: - Orthopedics recommended IR guided drainage of the possible abscess, orders placed - Patient is insistent on leaving the hospital tomorrow as he has his kids for the weekend - He is willing to do outpatient follow-up and come back to the hospital if needed Current Facility-Administered Medications Medication Dose Route Frequency [Transfer Hold] NaCl 0.9% iv flush bag 20 mL INTRAVENOUS PRN [Transfer Hold] losartan 100 mg tab(s) (COZAAR) 100 mg ORAL DAILY [Transfer Hold] dextrose 40 % 15 g 15 g ORAL PRN Or [Transfer Hold] glucagon 1 mg injection 1 mg INTRAMUSCULAR PRN Or [Transfer Hold] dextrose 10% iv bolus 12.5 g INTRAVENOUS PRN [Transfer Hold] insulin lispro injection (rapid acting) (ADMElog) SUBCUTANEOUS w MEALS [Transfer Hold] trospium 20 mg tab(s) (SANCTURA) 20 mg ORAL BID AC [Transfer Hold] senna 8.6 mg tab(s) (SENOKOT) 8.6 mg ORAL BID [Transfer Hold] polyethylene glycol 3350 17 g packet 17 g ORAL DAILY PRN [Transfer Hold] acetaminophen 1,000 mg tab(s) (TYLENOL) 1,000 mg ORAL q 6 H PRN [Transfer Hold] traMADol 50 mg tab(s) (ULTRAM) 50 mg ORAL q 6 H PRN [Transfer Hold] vancomycin dosing and monitoring per pharmacy OTHER As Directed [Transfer Hold] vancomycin iv piggyback 1.25 g in D5W 250 mL (VANCOCIN) 1.25 g INTRAVENOUS q 12 HR [Transfer Hold] lidocaine 10 mg/mL (1 %) 10-100 mg injection (XYLOCAINE) 1-10 mL INTRADERMAL DIRECTED PRN cefepime 2 g in D5W 100 mL Vial-Bag (MAXIPIME) 2 g INTRAVENOUS q 8 H Objective PHYSICAL EXAM: BP 127/64 Pulse 81 Temp (Src) 98 (Oral) Resp 18 Ht 5' 10 (1.78m) Wt 190 lb 11.2 oz (86.5kg) SpO2 100% BMI 27.36 kg/(m2). O2 Therapy: Room Air Physical Exam Performed GENERAL: Alert, no distress, cooperative LUNGS: Lungs clear to auscultation, Good diaphragmatic excursion CARDIAC: Normal S1 and S2; no rubs, murmurs, or gallops ABDOMEN: Abdomen soft, non-tender, BS normal, No masses or organomegaly EXTREMITIES: Paraplegaia NEURO: paraplegia PULSES: 2+ radial, 2+ carotid Lines, Drains, and Airways Line Duration Peripheral 01/30/25 [id number] [facility] Short Right Forearm 22 Gauge <1 day Reviewed lines and needs to be continued: REASONS: Intravenous antibiotics DATA: Diagnostic tests reviewed for today's visit: Most recent labs Most recent imaging HOSPITAL COURSE: Nadeen Hobson is a 39 year old male admitted with recurrent UTI in setting of neurogenic bladder with self-catherization at home. No hx of resistance, will plan for IV Rocephin in house and anticipate 10-14 day course at discharge. Infectious Disease on consult. Plan for MRI for further characterization of CT findings. Assessment AND Plan Complicated UTI (urinary tract infection) Present on Admission: Yes Sepsis (HCC) Present on Admission: Yes Neurogenic bladder Present on Admission: Yes - continue iv rocephin - Urine culture 01/28/2025 growing Escherichia coli Paraplegia (HCC) Present on Admission: Yes - stable - straight cath at home Primary hypertension Present on Admission: Yes - continue losartan Abnormal CT of the abdomen Present on Admission: Yes Osteomyelitis (HCC) Present on Admission: Yes - Soft tissue indurations extending form skin surface to ischial tuberosities bilaterally Mild sclerosis of left ischial tuberosity - MRI pelvis shows osteomyelitis of the left distal tuberosity extending into the inferior pubic rami and posterior acetabulum associated rim-enhancing collection likely complex abscess. - Continue IV Rocephin - IR guided drainage ordered -PICC line ordered -Will need to follow-up on culture results from IR guided drainage to evaluate exact antibiotics Type 2 diabetes (HCC) Present on Admission: Yes - hold mounjaro, metformin - SSI Obesity, Class I, BMI 30.0-34.9 (see actual BMI) Present on Admission: Yes - residential counselor Hyponatremia Present on Admission: Yes - resolved Constipation Present on Admission: Yes - scheduled senna S and prn miralax Medication and Non-Pharmacologic VTE Prophylaxis/Anticoagulants VTE Prophylaxis: VTE prophylaxis appropriate Disposition: To be determined Plan of care discussed with Patient and RN Plan communicated to: N/A SIGNATURE: Charmaine Fisher MD PATIENT NAME: Nadeen Hobson DATE: January 31, 2025 TIME: 3:46 PM [facility] 01-31-2025 Note HNO ID: [id number] Author: JASMIN BUTLER RN Service: Care Management Author Type: Registered Nurse Type: Care Mgt Progress Note Filed: 01/31/2025 15:27 Note Text: CARE MANAGEMENT PROGRESS NOTE SERVICE DATE: 01/31/2025 SERVICE TIME: 3:26 PM LOS: 3 days Needs Prior to Discharge: Home Care Order, Other: See Comment, IV Antibiotics (Medical Clearance) [facility] of Choice Given: Yes Level of Care Discussed: Home Care Financial Disclosure Provided: Yes EMR reviewed. Noted plan for PICC. CoPAT in EPIC. RN CM met with the patient at bedside to discuss discharge planning needs. He is agreeable to Home Care [facility] and indicated he has no preference in providers as long as in network with his insurance. Multiple referrals sent. CM assigned will continue to follow. SIGNATURE: Jasmin Butler RN PATIENT NAME: Nadeen Hobson DATE: January 31, 2025 TIME: 3:26 PM [facility] 01-31-2025 Note HNO ID: [id number] Author: GABI CARRION MD Service: ? Author Type: Physician Type: Progress Notes Filed: 02/01/2025 12:06 Note Text: [facility] Outpatient Parenteral Antimicrobial Therapy (OPAT) Start Form Patient Info Patient [place] [id number] [address] [id number] [facility] [id number] 1985 Start Date 02/01/[address] [facility] Diagnosis Group Diagnosis Osteoarticular: Osteomyelitis Micro-organism CULTURE NEGATIVE IV Antibiotics Antibiotic Dose Frequency Stop Date Vancomycin 1.75 grams every 12 hours 03/13/2025 Cefepime 2 grams every 8 hours 03/13/2025 Lab Monitoring Plan Labs Frequency While on CBC/diff Creatinine Pre-dose Vancomycin every Tuesday every Tuesday every Tuesday Cefepime Vancomycin Cefepime Vancomycin Vancomycin Vancomycin target trough level 10-20 mg/L OPAT Pharmacy Consult Yes Cath Care Protocol LINE CARE PER PROTOCOL: Change line dressing weekly and as needed. *Must use medicated disc (biopatch) or tegaderm CHG (chorhexedine gluconate) gel pad over insertion site and cover with transparent dressing* When the patient is on an intermittent IV antibiotic dosing schedule: [facility] method: 1) Administer normal saline 5ml IV to port. 2) Infuse IV antibiotic as ordered. 3) Administer normal saline 5ml IV to port. Labs may be drawn on Tuesday if Tuesday is a holiday. Follow up Provider Follow up date/time Appointment type Gabi Carrion MD 03/12/2025 In-person Provider Monitoring Treatment Course Gabi Carrion MD Address [address], [address], [place] [address] Prescribing Provider's signature - electronically signed by Gabi Carrion MD on 02/01/25 at 12:06 PM [facility] 01-31-2025 Note HNO ID: [id number] Author: JASMIN BUTLER RN Service: Care Management Author Type: Registered Nurse Type: Care Mgt Progress Note Filed: 01/31/2025 12:55 Note Text: CARE MANAGEMENT PROGRESS NOTE SERVICE DATE: 01/31/2025 SERVICE TIME: 12:52 PM LOS: 3 days Needs Prior to Discharge: To Be Determined, Home Care Order, Facility or Agency Choices, IV Antibiotics, Discharge Transportation, Other: See Comment (Medical Clearance) EMR reviewed. Patient admitted for complicated UTI. He is also being treated for left ischial tuberosity OM with extension into the inferior pubic ramus and posterior acetabulum and an associated fluid collection concerning for abscess vs hematoma. Plan for IR drainage of the fluid collection today. Discharge antibiotic needs to be determined. CM assigned will continue to follow. SIGNATURE: Jasmin Butler RN PATIENT NAME: Nadeen Hobson DATE: January 31, 2025 TIME: 12:52 PM [facility] 01-30-2025 Note HNO ID: [id number] Author: CHARMAINE FISHER MD Service: Hospital Medicine Author Type: Physician Type: Progress Notes Filed: 01/30/2025 16:18 Note Text: DEPARTMENT OF HOSPITAL MEDICINE PROGRESS NOTE SERVICE DATE: 01/30/2025 SERVICE TIME: 4:13 PM Hospital Medicine/Primary Attending: Charmaine Fisher MD NIGHT AND WEEKEND COVERAGE: ALISO VIEJO COVERAGE: Days: [phone], please page attending physician. Nights: [phone], please page [facility] Night coverage pager [phone]. Subjective INTERVAL HPI: - MRI findings discussed, need for orthopedics evaluation discussed - Patient currently denies any pain in the pelvis region Current Facility-Administered Medications Medication Dose Route Frequency NaCl 0.9% iv flush bag 20 mL INTRAVENOUS PRN losartan 100 mg tab(s) (COZAAR) 100 mg ORAL DAILY dextrose 40 % 15 g 15 g ORAL PRN Or glucagon 1 mg injection 1 mg INTRAMUSCULAR PRN Or dextrose 10% iv bolus 12.5 g INTRAVENOUS PRN insulin lispro injection (rapid acting) (ADMElog) SUBCUTANEOUS w MEALS trospium 20 mg tab(s) (SANCTURA) 20 mg ORAL BID AC senna 8.6 mg tab(s) (SENOKOT) 8.6 mg ORAL BID cefTRIAXone 2 g in D5W 100 mL Vial-Bag (ROCEPHIN) 2 g INTRAVENOUS q 24 H polyethylene glycol 3350 17 g packet 17 g ORAL DAILY PRN acetaminophen 1,000 mg tab(s) (TYLENOL) 1,000 mg ORAL q 6 H PRN traMADol 50 mg tab(s) (ULTRAM) 50 mg ORAL q 6 H PRN Objective PHYSICAL EXAM: BP 124/86 Pulse 93 Temp (Src) 98.3 (Oral) Resp 18 Ht 5' 10 (1.78m) Wt 190 lb 11.2 oz (86.5kg) SpO2 98% BMI 27.36 kg/(m2). O2 Therapy: Room Air Physical Exam Performed GENERAL: Alert, no distress, cooperative LUNGS: Lungs clear to auscultation, Good diaphragmatic excursion CARDIAC: Normal S1 and S2; no rubs, murmurs, or gallops ABDOMEN: Abdomen soft, non-tender, BS normal, No masses or organomegaly EXTREMITIES: Paraplegaia NEURO: paraplegia PULSES: 2+ radial, 2+ carotid Lines, Drains, and Airways Line Duration Peripheral 01/29/25 [facility] Short Right Antecubital 20 Gauge 1 day Reviewed lines and needs to be continued: REASONS: Intravenous antibiotics DATA: Diagnostic tests reviewed for today's visit: Most recent labs Most recent imaging HOSPITAL COURSE: Nadeen Hobson is a 39 year old male admitted with recurrent UTI in setting of neurogenic bladder with self-catherization at home. No hx of resistance, will plan for IV Rocephin in house and anticipate 10-14 day course at discharge. Infectious Disease on consult. Plan for MRI for further characterization of CT findings. Assessment AND Plan Complicated UTI (urinary tract infection) Present on Admission: Yes Sepsis (HCC) Present on Admission: Yes Neurogenic bladder Present on Admission: Yes - continue iv rocephin - Urine culture 01/28/2025 growing Escherichia coli Paraplegia (HCC) Present on Admission: Yes - stable - straight cath at home Primary hypertension Present on Admission: Yes - continue losartan Type 2 diabetes (HCC) Present on Admission: Yes - hold mounjaro, metformin - SSI Obesity, Class I, BMI 30.0-34.9 (see actual BMI) Present on Admission: Yes - residential counselor Hyponatremia Present on Admission: Yes - resolved Constipation Present on Admission: Yes - scheduled senna S and prn miralax Abnormal CT of the abdomen Present on Admission: Yes Osteomyelitis (HCC) Present on Admission: Yes - Soft tissue indurations extending form skin surface to ischial tuberosities bilaterally Mild sclerosis of left ischial tuberosity - MRI pelvis shows osteomyelitis of the left distal tuberosity extending into the inferior pubic rami and posterior acetabulum associated rim-enhancing collection likely complex abscess. - Continue IV Rocephin -Consult orthopedics Medication and Non-Pharmacologic VTE Prophylaxis/Anticoagulants VTE Prophylaxis: VTE prophylaxis appropriate Disposition: To be determined Plan of care discussed with Patient and RN Plan communicated to: N/A SIGNATURE: Charmaine Fisher MD PATIENT NAME: Nadeen Hobson DATE: January 30, 2025 TIME: 4:18 PM [facility] 01-29-2025 Note HNO ID: [id number] Author: CHARMAINE FISHER MD Service: Hospital Medicine Author Type: Physician Type: Progress Notes Filed: 01/29/2025 13:04 Note Text: DEPARTMENT OF HOSPITAL MEDICINE PROGRESS NOTE SERVICE DATE: 01/29/2025 SERVICE TIME: 12:58 PM Hospital Medicine/Primary Attending: Charmaine Fisher MD NIGHT AND WEEKEND COVERAGE: ALISO VIEJO COVERAGE: Days: [phone], please page attending physician. Nights: [phone], please page [facility] Night coverage pager [phone]. Subjective INTERVAL HPI: - wants to be discharged [facility] if MRI comes back negative - has a bowel movement every 4-5 days - says sacral wound has healed Current Facility-Administered Medications Medication Dose Route Frequency NaCl 0.9% iv flush bag 20 mL INTRAVENOUS PRN losartan 100 mg tab(s) (COZAAR) 100 mg ORAL DAILY dextrose 40 % 15 g 15 g ORAL PRN Or glucagon 1 mg injection 1 mg INTRAMUSCULAR PRN Or dextrose 10% iv bolus 12.5 g INTRAVENOUS PRN insulin lispro injection (rapid acting) (ADMElog) SUBCUTANEOUS w MEALS trospium 20 mg tab(s) (SANCTURA) 20 mg ORAL BID AC iv contrast (radiology procedure) INTRAVENOUS DIRECTED PRN senna 8.6 mg tab(s) (SENOKOT) 8.6 mg ORAL BID cefTRIAXone 2 g in D5W 100 mL Vial-Bag (ROCEPHIN) 2 g INTRAVENOUS q 24 H polyethylene glycol 3350 17 g packet 17 g ORAL DAILY PRN Objective PHYSICAL EXAM: BP 125/83 Pulse 108 Temp (Src) 98.5 (Oral) Resp 18 Ht 5' 10 (1.78m) Wt 190 lb 11.2 oz (86.5kg) SpO2 98% BMI 27.36 kg/(m2). O2 Therapy: Room Air Physical Exam Performed GENERAL: Alert, no distress, cooperative LUNGS: Lungs clear to auscultation, Good diaphragmatic excursion CARDIAC: Normal S1 and S2; no rubs, murmurs, or gallops ABDOMEN: Abdomen soft, non-tender, BS normal, No masses or organomegaly EXTREMITIES: Paraplegaia NEURO: paraplegia PULSES: 2+ radial, 2+ carotid Lines, Drains, and Airways Line Duration Peripheral 01/29/25 [facility] Short Right Antecubital 20 Gauge <1 day Reviewed lines and needs to be continued: REASONS: Intravenous antibiotics DATA: Diagnostic tests reviewed for today's visit: Most recent labs Most recent imaging HOSPITAL COURSE: Nadeen Hobson is a 39 year old male admitted with recurrent UTI in setting of neurogenic bladder with self-catherization at home. No hx of resistance, will plan for IV Rocephin in house and anticipate 10-14 day course at discharge. Infectious Disease on consult. Plan for MRI for further characterization of CT findings. Assessment AND Plan Complicated UTI (urinary tract infection) Present on Admission: Yes Sepsis (HCC) Present on Admission: Yes Neurogenic bladder Present on Admission: Yes - continue iv rocephin - follow urine culture. Paraplegia (HCC) Present on Admission: Yes - stable - straight cath at home Primary hypertension Present on Admission: Yes - continue losartan Type 2 diabetes (HCC) Present on Admission: Yes - hold mounjaro, metformin - SSI Obesity, Class I, BMI 30.0-34.9 (see actual BMI) Present on Admission: Yes - residential counselor Hyponatremia Present on Admission: Yes - resolved Constipation Present on Admission: Yes - scheduled senna S and prn miralax Abnormal CT of the abdomen Present on Admission: Yes - Soft tissue indurations extending form skin surface to ischial tuberosities bilaterally Mild sclerosis of left ischial tuberosity - MRI pelvis ordered w/ and w/o contrast - ESR/CRP - Wound evaluated, unremarkable Medication and Non-Pharmacologic VTE Prophylaxis/Anticoagulants VTE Prophylaxis: VTE prophylaxis appropriate Disposition: To be determined Plan of care discussed with Patient and RN Plan communicated to: N/A SIGNATURE: Charmaine Fisher MD PATIENT NAME: Nadeen Hobson DATE: January 29, 2025 TIME: 12:58 PM [facility] 01-29-2025 Note HNO ID: [id number] Author: THERESA BOYD, KRISHNA Service: Care Management Author Type: Registered Nurse Type: Care Mgt Initial Assessment Filed: 01/29/2025 12:19 Note Text: CARE MANAGEMENT: ASSESSMENT AND DISCHARGE PLAN SERVICE DATE: January 29, 2025 SERVICE TIME: 12:15 PM PCP: Javed Pacheco MD Primary Contact: Extended Emergency Contact Information Primary Emergency Contact: Pina Duvaldez Shannone Mobile Relation: Mother Secondary Emergency Contact: Segundo Hobson Mobile Relation: Father Admission Status: Inpatient Insurance Provider: [facility] Discharge Planning requested by: Per Department Practice Potential Transition Plans Home, To Be Determined Advance Directives Current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 Diagnosis Diabetes mellitus type 2 (HCC) documented in this encounter [facility] note* Diagnosis Type 2 diabetes mellitus with hyperglycemia, with long-term current use of insulin (HCC)- Primary Diabetes mellitus type 2 (HCC) Class 1 obesity with serious comorbidity and body mass index (BMI) of 31.0 to 31.9 in adult, unspecified obesity type documented in this encounter [facility] note* Diagnosis UTI symptoms- Primary Other symptoms involving urinary system documented in this encounter [facility] note* Diagnosis Obesity, Class I, BMI 30.0-34.9 (see actual BMI)- Primary Obesity, unspecified Paraplegia (HCC) Paraplegia Type 2 diabetes (HCC) Essential (primary) hypertension Unspecified essential hypertension intermediate (current) use of insulin (HCC) intermediate (current) use of oral hypoglycemic drugs documented in this encounter [facility] note* Diagnosis Diabetes mellitus type 2 (HCC) documented in this encounter [facility] note* Diagnosis Acute cystitis with hematuria- Primary Acute cystitis Self-catheterizes urinary bladder Other specified conditions influencing health status Urinary frequency documented in this encounter [facility] note* Diagnosis Type 2 diabetes (HCC)- Primary Obesity, Class I, BMI 30.0-34.9 (see actual BMI) Obesity, unspecified documented in this encounter [facility] note* Diagnosis Urinary frequency- Primary Urinary urgency Urgency of urination Bladder pain Other symptoms involving urinary system Neurogenic bladder Neurogenic bladder, NOS documented in this encounter [facility] note* Diagnosis E. coli UTI- Primary Urinary tract infection, site not specified documented in this encounter [facility] note* Diagnosis Type 2 diabetes (HCC) Obesity, Class I, BMI 30.0-34.9 (see actual BMI) Obesity, unspecified documented in this encounter [facility] note* Diagnosis Type 2 diabetes (HCC)- Primary Obesity, Class I, BMI 30.0-34.9 (see actual BMI) Obesity, unspecified Diabetes mellitus type 2 (HCC) documented in this encounter [facility] note* Diagnosis Type 2 diabetes (HCC) Obesity, Class I, BMI 30.0-34.9 (see actual BMI) Obesity, unspecified documented in this encounter [facility] note* Diagnosis Bladder spasm- Primary Other specified disorders of bladder Urinary incontinence, unspecified type documented in this encounter [facility] for referral (narrative)No reason for referral information availableWOhioHealth [facility] Work Phone: Summary Purpose Family History No Family History Records Found Relationship Condition Age at Onset Recorded Date/T lenin Not Specified Alcohol abuse Unknown Anemia Unknown Hypertension Unknown Advance Directives No Advanced Directives Records FoundDocuments on File Type Date Recorded Patient Drive Man Expl anation Advance Directive(s) 09/21/2018 6:22 PM Advance Directive Response Recorded Date/ Time Living Will No September 27, 2018 4 :08pm Power of Velvet Weaver No September 27, 2018 4:08pm Advance Directive Response Recorded Date/ Time Living Will No September 27, 2018 3 :08pm Power of Velvet Weaver No September 27, 2018 3:08pm Reason for Referral Specialty Diagnoses / Procedures Referred By Contac t Referred To Contact Radiology Diagnoses Acute pancreatitis without necrosis or infection, unspecified Procedures CT abdomen w IV contrast CT abdomen w and wo IV contrast Javed Pacheco [address] [place] [address] Referral ID Status Reason Start Date Expiration Date Visits Re quested Visits Authorized [id number] Closed 08/05/2023 2024 1 1 Additional Source Comments (unrecognized sect ion and content) No Status Records FoundNo Status Records FoundNo Status Records FoundNo Status Records FoundNo Status Records FoundNo Status Records FoundNo Status Records FoundNo Status Records Found INFORMATION SOURCE (unrecogn ized section and content) DATE CREATED AUTHOR 12/15/2017 [employer] DATE CREATED AUTHOR AUTHOR'S ORGANIZ ATION 01/09/2019 [facility] DATE CREATED AUTHOR AUTHOR'S ORGANIZ ATION 08/20/2023 [facility] DATE CREATED AUTHOR AUTHOR'S ORGANIZ ATION 07/10/2024 [facility] DATE CREATED AUTHOR AUTHOR'S ORGANIZ ATION 01/26/2025 [facility] DATE CREATED AUTHOR AUTHOR'S ORGANIZ ATION 03/02/2025 [facility] DATE CREATED AUTHOR AUTHOR'S ORGANIZ ATION 03/05/2025 [facility] DATE CREATED AUTHOR AUTHOR'S ORGANIZ ATION 03/07/2025 [facility] Source Comments (unrecognize d section and content) In the event this informatio n is protected by the Federal Confidentiality of Alcohol and Drug Abuse Patient Records regulations: The Federal rules restrict any use of the information to criminally investigate or prosecute any alcohol or drug abuse patient.[facility] HospitalIn the event this information is protected by the Federal Confidentiality of Alcohol and Drug Abuse Patient Records regulations: The Federal rules restrict any use of the information to criminally investigate or prosecute any alcohol or drug abuse patient.[facility] HospitalIn the event this information is protected by the Federal Confidentiality of Alcohol and Drug Abuse Patient Records regulations: The Federal rules restrict any use of the information to criminally investigate or prosecute any alcohol or drug abuse patient.[facility] HospitalIn the event this information is protected by the Federal Confidentiality of Alcohol and Drug Abuse Patient Records regulations: The Federal rules restrict any use of the information to criminally investigate or prosecute any alcohol or drug abuse patient.[facility] HospitalIn the event this information is protected by the Federal Confidentiality of Alcohol and Drug Abuse Patient Records regulations: The Federal rules restrict any use of the information to criminally investigate or prosecute any alcohol or drug abuse patient.[facility] HospitalIn the event this information is protected by the Federal Confidentiality of Alcohol and Drug Abuse Patient Records regulations: The Federal rules restrict any use of the information to criminally investigate or prosecute any alcohol or drug abuse patient.[facility] HospitalIn the event this information is protected by the Federal Confidentiality of Alcohol and Drug Abuse Patient Records regulations: The Federal rules restrict any use of the information to criminally investigate or prosecute any alcohol or drug abuse patient.[facility] HospitalIn the event this information is protected by the Federal Confidentiality of Alcohol and Drug Abuse Patient Records regulations: The Federal rules restrict any use of the information to criminally investigate or prosecute any alcohol or drug abuse patient.[facility] HospitalIn the event this information is protected by the Federal Confidentiality of Alcohol and Drug Abuse Patient Records regulations: The Federal rules restrict any use of the information to criminally investigate or prosecute any alcohol or drug abuse patient.[facility] HospitalIn the event this information is protected by the Federal Confidentiality of Alcohol and Drug Abuse Patient Records regulations: The Federal rules restrict any use of the information to criminally investigate or prosecute any alcohol or drug abuse patient.[facility] HospitalIn the event this information is protected by the Federal Confidentiality of Alcohol and Drug Abuse Patient Records regulations: The Federal rules restrict any use of the information to criminally investigate or prosecute any alcohol or drug abuse patient.[facility] HospitalIn the event this information is protected by the Federal Confidentiality of Alcohol and Drug Abuse Patient Records regulations: The Federal rules restrict any use of the information to criminally investigate or prosecute any alcohol or drug abuse patient.[facility] HospitalIn the event this information is protected by the Federal Confidentiality of Alcohol and Drug Abuse Patient Records regulations: The Federal rules restrict any use of the information to criminally investigate or prosecute any alcohol or drug abuse patient.[facility] HospitalIn the event this information is protected by the Federal Confidentiality of Alcohol and Drug Abuse Patient Records regulations: The Federal rules restrict any use of the information to criminally investigate or prosecute any alcohol or drug abuse patient.[facility] HospitalIn the event this information is protected by the Federal Confidentiality of Alcohol and Drug Abuse Patient Records regulations: The Federal rules restrict any use of the information to criminally investigate or prosecute any alcohol or drug abuse patient.[facility]In the event this information is protected by the Federal Confidentiality of Alcohol and Drug Abuse Patient Records regulations: The Federal rules restrict any use of the information to criminally investigate or prosecute any alcohol or drug abuse patient.[facility] HospitalIn the event this information is protected by the Federal Confidentiality of Alcohol and Drug Abuse Patient Records regulations: The Federal rules restrict any use of the information to criminally investigate or prosecute any alcohol or drug abuse patient.[facility]In the event this information is protected by the Federal Confidentiality of Alcohol and Drug Abuse Patient Records regulations: The Federal rules restrict any use of the information to criminally investigate or prosecute any alcohol or drug abuse patient.[facility] HospitalIn the event this information is protected by the Federal Confidentiality of Alcohol and Drug Abuse Patient Records regulations: The Federal rules restrict any use of the information to criminally investigate or prosecute any alcohol or drug abuse patient.[facility] HospitalIn the event this information is protected by the Federal Confidentiality of Alcohol and Drug Abuse Patient Records regulations: The Federal rules restrict any use of the information to criminally investigate or prosecute any alcohol or drug abuse patient.[facility]In the event this information is protected by the Federal Confidentiality of Alcohol and Drug Abuse Patient Records regulations: The Federal rules restrict any use of the information to criminally investigate or prosecute any alcohol or drug abuse patient.[facility] HospitalIn the event this information is protected by the Federal Confidentiality of Alcohol and Drug Abuse Patient Records regulations: The Federal rules restrict any use of the information to criminally investigate or prosecute any alcohol or drug abuse patient.[facility]In the event this information is protected by the Federal Confidentiality of Alcohol and Drug Abuse Patient Records regulations: The Federal rules restrict any use of the information to criminally investigate or prosecute any alcohol or drug abuse patient.[facility] HospitalIn the event this information is protected by the Federal Confidentiality of Alcohol and Drug Abuse Patient Records regulations: The Federal rules restrict any use of the information to criminally investigate or prosecute any alcohol or drug abuse patient.[facility] HospitalIn the event this information is protected by the Federal Confidentiality of Alcohol and Drug Abuse Patient Records regulations: The Federal rules restrict any use of the information to criminally investigate or prosecute any alcohol or drug abuse patient.[facility] HospitalIn the event this information is protected by the Federal Confidentiality of Alcohol and Drug Abuse Patient Records regulations: The Federal rules restrict any use of the information to criminally investigate or prosecute any alcohol or drug abuse patient.[facility] HospitalIn the event this information is protected by the Federal Confidentiality of Alcohol and Drug Abuse Patient Records regulations: The Federal rules restrict any use of the information to criminally investigate or prosecute any alcohol or drug abuse patient.[facility] HospitalIn the event this information is protected by the Federal Confidentiality of Alcohol and Drug Abuse Patient Records regulations: The Federal rules restrict any use of the information to criminally investigate or prosecute any alcohol or drug abuse patient.[facility] HospitalIn the event this information is protected by the Federal Confidentiality of Alcohol and Drug Abuse Patient Records regulations: The Federal rules restrict any use of the information to criminally investigate or prosecute any alcohol or drug abuse patient.[facility] HospitalIn the event this information is protected by the Federal Confidentiality of Alcohol and Drug Abuse Patient Records regulations: The Federal rules restrict any use of the information to criminally investigate or prosecute any alcohol or drug abuse patient.[facility] HospitalIn the event this information is protected by the Federal Confidentiality of Alcohol and Drug Abuse Patient Records regulations: The Federal rules restrict any use of the information to criminally investigate or prosecute any alcohol or drug abuse patient.[facility] HospitalIn the event this information is protected by the Federal Confidentiality of Alcohol and Drug Abuse Patient Records regulations: The Federal rules restrict any use of the information to criminally investigate or prosecute any alcohol or drug abuse patient.[facility] HospitalIn the event this information is protected by the Federal Confidentiality of Alcohol and Drug Abuse Patient Records regulations: The Federal rules restrict any use of the information to criminally investigate or prosecute any alcohol or drug abuse patient.[facility] HospitalIn the event this information is protected by the Federal Confidentiality of Alcohol and Drug Abuse Patient Records regulations: The Federal rules restrict any use of the information to criminally investigate or prosecute any alcohol or drug abuse patient.[facility] Reason for Visit (unrecogniz ed section and content) Reason Comments PT Eval Patient Education PT Discharge Specialty Diagnoses / Procedures Referred By Contac t Referred To Contact Physical Therapy / PHYSICAL THERAPY Diagnoses wheelchair assessment Procedures NEW RS NEURO NSM Javed Stroud MD [address] [place] [id number] Malinda Rodríguez, PT, DPT [address] [place] [address] Referral ID Status Reason Start Date Expiration Date V isits Requested Visits Authorized [id number] Denied Patient Cleared - Admin/Chairm an/Director advise to proceed 2021 11/02/2021 1 0 Specialty Diagnoses / Procedures Referred By Contac t Referred To Contact Radiology Diagnoses Acute pancreatitis without necrosis or infection, unspecified Procedures CT abdomen w IV contrast CT abdomen w and wo IV contrast Javed Pacheco [address] [place] [address] Referral ID Status Reason Start Date Expiration Date Visits Re quested Visits Authorized [id number] Closed 08/05/2023 2024 1 1 Reason Comments Type 2 Diabetes Reason Comments Earache Entered by patient Ear Pain Symptoms for a week no discharge and constant pain and sometimes a sharp pain right ear only. Did use over the counter drops with no relief. Reason Comments type 2 Diabetes A1c 8.9 10/10/23 Reason Comments Urinary Tract Infection Urgency, frequen cy started tuesday Reason Comments Urinary Tract Infection I think i have s ome sort of infection or a virus. Low grade fever, body aches and tiredness - Entered by patient just finished meds a week ago and is concerned uti may have not gone away or come back. Reason Comments Refill Request Reason Comments Follow Up Reason Onset Date Comments Refill Request 02/29/2024 Reason Comments Urinary Tract Infection Urgency, headach es, loss of control Reason Onset Date Comments Refill Request 05/01/2024 Reason Comments type 2 diabetes Reason Comments Urinary Tract Infection Entered by patie nt Symptoms started last week tue Reason Comments Medical Weight Management Specialty Diagnoses / Procedures Referred By Contac t Referred To Contact Diagnoses Type 2 diabetes mellitus with hyperglycemia, with long-term current use of insulin ([facility]) Class 1 obesity with serious comorbidity and body mass index (BMI) of 31.0 to 31.9 in adult, unspecified obesity type Procedures ENDOCRINE MEDICAL WEIGHT MANAGEMENT OFFICE/OUTPATIENT [facility] 60 MINUTES Tata Carver MD [address] [place] [address] Phone: tel: fax: Referral ID Status Reason Start Date Expiration Date V isits Requested Visits Authorized [id number] Closed PCP Requested Referral 06/01/2024 06/01/2025 1 1 Reason Comments Urinary Frequency Fever, fatigue x 6 d ays Reason Onset Date Comments Refill Request 08/02/2024 Reason Comments Urinary Tract Infection Entered by patie nt symptoms started Tuesday. Reason Onset Date Comments Refill Request 10/22/2024 Reason Onset Date Comments Refill Request 11/29/2024 Reason Comments UTI Pt noticed symptoms of UTI last week Tuesday, bladder spasms, leaking, frequency/urgency, sensation of needing to urinate comes faster than usual, pt straight cath's, feverish/chills Care Teams (unrecognized sec tion and content) Station Mechanic Apprentice Relationship Specialty Start Date End Date Javed Pacheco MD [address] [place] [address] PCP - General Family Practice 11/30/17 Team Status: Active Member Role Status Dates Dr. Javed Pacheco MD Family Provider Active Dr. Javed Pacheco MD Primary Care Provider Active Team Status: Inactive Member Role Status Dates Dr. Javed Pacheco MD Primary Care Provider Active Kalpana Batista , [employer] Attending Provider, Referr ing Provider Active Station Mechanic Apprentice Relationship Specialty Start Date End Date Javed Pacheco [address] [facility] [address] [place] [address] PCP - General Family Medicine 08/05/23 Station Mechanic Apprentice Relationship Specialty Start Date End Date Javed Pacheco MD [address] [facility] [place] [address] PCP - General Family Medicine 11/30/17 Station Mechanic Apprentice Relationship Specialty Start Date End Date Javed Pacheco MD [address] [place] [address] PCP - General Family Medicine 11/30/17 Station Mechanic Apprentice Relationship Specialty Start Date End Date Javed Pacheco MD [address] [facility] [address] [place] [place] [address] PCP - General Family Medicine 11/30/17 Station Mechanic Apprentice Relationship Specialty Start Date End Date Javed Pachceo MD [address] [place] [address] PCP - General Family Medicine 11/30/17 Station Mechanic Apprentice Relationship Specialty Start Date End Date Javed Pacheco MD [address] [place] [address] PCP - General Family Medicine 11/30/17 Station Mechanic Apprentice Relationship Specialty Start Date End Date Javed Pacheco MD [address] [place] [address] PCP - General Family Medicine 11/30/17 Station Mechanic Apprentice Relationship Specialty Start Date End Date Javed Pacheco MD [address] [place] [address] PCP - General Family Medicine 11/30/17 Station Mechanic Apprentice Relationship Specialty Start Date End Date Javed Pacheco MD [address] [place] [address] PCP - General Family Medicine 11/30/17 Station Mechanic Apprentice Relationship Specialty Start Date End Date Javed Pacheco MD [address] [place] [address] PCP - General Family Medicine 11/30/17 Station Mechanic Apprentice Relationship Specialty Start Date End Date Javed Pacheco MD [address] [place] [address] PCP - General Family Medicine 11/30/17 Station Mechanic Apprentice Relationship Specialty Start Date End Date Javed Pacheco MD [address] [place] [address] PCP - General Family Medicine 11/30/17 Station Mechanic Apprentice Relationship Specialty Start Date End Date Javed Pacheco MD [address] [place] [address] PCP - General Family Medicine 11/30/17 Station Mechanic Apprentice Relationship Specialty Start Date End Date Javed Pacheco MD [address] [place] [address] PCP - General Family Medicine 11/30/17 Station Mechanic Apprentice Relationship Specialty Start Date End Date Javed Pacheco MD [address] [place] [address] PCP - General Family Medicine 11/30/17 Station Mechanic Apprentice Relationship Specialty Start Date End Date Javed Pacheco MD [address] [place] [place] [address] PCP - General Family Medicine 11/30/17 Station Mechanic Apprentice Relationship Specialty Start Date End Date Javed Pacheco MD [address] [place] [address] PCP - General Family Medicine 11/30/17 Station Mechanic Apprentice Relationship Specialty Start Date End Date Javed Pacheco MD [address] [place] [place] [address] PCP - General Family Medicine 11/30/17 Station Mechanic Apprentice Relationship Specialty Start Date End Date Javed Pacheco MD [address] [place] [place] [address] PCP - General Family Medicine 11/30/17 Team Status: Active Member Role/Relationship Status Dates Dr. Javed Pacheco MD Family Provider Active Dr. Javed Pacheco MD Primary Care Provider Active Team Status: Inactive Member Role/Relationship Status Dates Dr. Javed Pacheco MD Primary Care Provider Active Start: November 01, 2024 End: November 01, 2024 Dr. Javed Pacheco MD Attending Provider Active St art: November 01, 2024 End: November 01, 2024 Dr. Javed Pacheco MD Referring Provider Active St art: November 01, 2024 End: November 01, 2024 Station Mechanic Apprentice Relationship Specialty Start Date End Date Javed Pacheco MD [address] [place] [address] PCP - General Family Medicine 11/30/17 Team Status: Active Member Role/Relationship Status Dates Dr. Javed Pacheco MD Primary care physician Active Team Status: Inactive Member Role/Relationship Status Dates Dr. Javed Pacheco MD Primary care physician Active Start: November 01, 2024 End: November 01, 2024 Dr. Javed Pacheco MD Attending physician Active S tart: November 01, 2024 End: November 01, 2024 Dr. Javed Pacheco MD Referring Provider Active St art: November 01, 2024 End: November 01, 2024 Team Status: Inactive Member Role/Relationship Status Dates Dr. Javed Pacheco MD Primary care physician Active Start: January 11, 2025 End: January 11, 2025 Dr. Javed Pacheco MD Attending physician Active S tart: January 11, 2025 End: January 11, 2025 Goals (unrecognized section and content) Goals may be documented in a n alternate sectionGoals may be documented in an alternate sectionGoals may be documented in an alternate sectionGoals may be documented in an alternate sectionGoals may be documented in an alternate sectionGoals may be documented in an alternate sectionGoals may be documented in an alternate section FOR RECORDS PERTAINING TO PATIENTS WHO ARE OR HAVE BEEN ENROLLED IN A CHEMICAL DEPENDENCY/SUBSTANCEABUSE PROGRAM, SOME INFORMATION MAY BE OMITTED. This clinical summary was aggregated from multiple sources. Caution should be exercised in using it in the provision of clinical care. This summary normalizes information from multiple sources, and as a consequence, information in this document may materially change the coding, format and clinical context of patient data. In addition, data may be omitted in some cases. CLINICAL DECISIONS SHOULD BE BASED ON THE PRIMARY CLINICAL RECORDS. [facility]. provides no warranty or guarantee of the accuracy or completeness of information in this document.
[2025-04-19 13:38] LABS: Hematocrit 47.2 % (40-54); Hemoglobin 16.4 g/dL (13.0-16.5); Immature Granulocytes Count 0.040 X10^3/uL (0.0-0.0); Mean Corp Hgb Conc 34.7 g/dL (32-36); Mean Corpuscular Volume 84.0 fL (80-94); Mean Platelet Vol. 10.6 fl (6.2-12.0); NRBC Flagged by Analyzer 0 % (0-5); Platelet Count 309 K/mm3 (150-450); RBC Distribution Width CV 13.2 % (11.6-14.6); RBC Distribution Width SD 40.1 fl (35.1-43.9); Red Blood Count 5.62 M/mm3 (4.6-6.2); White Blood Count 9.8 K/mm3 (4.4-11.0)
[2025-04-19 14:46] LABS: AST(SGOT) 27 U/L (<=37); Alanine Aminotransfer ALT/SGPT 31 U/L (<=46); Albumin, Serum 4.3 g/dL (3.5-5.0); Alkaline Phosphatase 61 U/L (40-129); Anion Gap 11 (7-18); BUN 12 mg/dL (4-19); BUN/Creat Ratio 26.6 RATIO (10-20); Calcium,Total 9.6 mg/dL (7.6-11.0); Carbon Dioxide 22.9 mmol/L (20.0-29.0); Chloride 106 mmol/L (96-106); Globulin 3.0 g/dL (2.2-4.2); Glucose 175 mg/dL (70-99); Potassium 4.0 mmol/L (3.5-5.1)
[2025-04-19 15:39] LABS: CRP 6.11 mg/L (0.0-3.0)
[2025-04-22 16:08] LABS: Immunoglobulin A 317 mg/dL (90-386)
== END | disposition home or self-care (01) ==
LOC: MFPLAB 11:18
PROVIDERS: PCP Family Medicine; Visit Provider Family Medicine
DX: N39.0 Urinary tract infection, site not specified (principal); K52.9 Noninfective gastroenteritis and colitis, unspecified
CPT/HCPCS: 36415; 80053; 82784; 83516; 85025; 85652; 86140; 86255